=== PATIENT | female | born 1995 | race Asian ===

== ENCOUNTER 2021-04-27 17:43 | Inpatient (IN) ==
[2021-04-27] MEDS ORDERED: SODIUM CHLORIDE 0.9% 1000ML 1,000 ML IV ONE ×2 (18:23→19:54)
[2021-04-27] MEDS ORDERED: ACETAMINOPHEN 1,000 MG/100 ML VIAL IV STA (18:23)
--- NOTE | 2021-04-27 19:06 | Emergency Department Note ---
History of Present Illness General Chief complaint: Illness Stated complaint: FAINTED, CAN'T STAND, NAUSEA, MUSCEL CRAMPS Time Seen by Provider: 04/27/21 18:14 Source: patient and other (Significant other whom she lives with) Mode of arrival: ambulatory Limitations: no limitations History of Present Illness Provider complaint: n/v/d, abd pain Onset (ago): day(s) 1 Location: abdomen Radiation: non-radiation Maximum Pain Intensity: 10 Associated symptoms: + loss of appetite, + malaise, + nausea/vomiting, + syncope and + weakness Treatments prior to arrival: none This is a 25-year-old female presents the emergency department with multiple GI complaints. Patient states yesterday she had worsening nausea and vomited multiple times. She then also began having having diarrhea. Denies any blood in the emesis or stool. She states she does have abdominal pain that seems to move and she feels bloated/distended. Patient denies fevers, chills. Significant other bedside states in the midst of the GI events last night she did pass out on 2 occasions. She states she felt her heart was racing before and after these events. He states she is only been able to keep down small sips. They attribute her symptoms to a recent increase in her Prozac. They states she was started on Prozac 20 mg about a month ago and did have nausea while taking that and the Prozac was increased to 40 mg on . They state they have otherwise been eating the same foods and he has not been sick. No known sick contacts. She states her periods are always irregular but she has not had a menstrual cycle in 5 months. She states she has taken several at home test that were all negative. She denies any other new medications. Denies any history of IBS or IBD. No GI history in the family. Pt seen during a time of high acuity and national emergency pandemic while wearing PPE. Home Medications Medication Instructions Recorded Confirmed Type fluoxetine 40 mg capsule (Prozac) 40 mg PO DAILY 04/27/21 04/27/21 History Allergies Allergy/AdvReac Type Severity Reaction Status Date / Time No Known Allergies Allergy Unverified 04/27/21 18:49 Past Med/Surg History Social History Smoking Status: Never smoker Feels Safe at Home: Yes Review of Systems A total of 10 systems reviewed and were otherwise negative All systems reviewed & are unremarkable except as noted in HPI & below Physical Exam Vital Signs Vital Signs - 24 hr 04/27/21 17:50 04/27/21 20:03 04/27/21 23:19 Temperature 36.8 C 37.3 C Temperature Source Temporal Artery Scan Oral Pulse Rate 121 H Pulse Rate [Apical] 95 H 88 Pulse Rhythm Regular Respiratory Rate 18 20 19 Respiratory Effort / Characteristics Non-Labored Spontaneous Respiratory Depth Normal Respiratory Pattern Regular Blood Pressure 102/71 Blood Pressure [Right Arm] 118/73 119/66 Blood Pressure Mean 81 Blood Pressure Mean [Right Arm] 88 83 Blood Pressure Position [Right Arm] Sitting Pulse Oximetry 98 99 98 Oxygen Delivery Method Room Air Room Air Room Air Sepsis Recent Fever Within 48 Hours No Sepsis New/Unexplained Change in Mental Status No Sepsis Action Taken by Nursing No Action Required 04/28/21 01:08 Temperature Temperature Source Pulse Rate Pulse Rate [Apical] 91 H Pulse Rhythm Respiratory Rate 19 Respiratory Effort / Characteristics Non-Labored Spontaneous Respiratory Depth Normal Respiratory Pattern Regular Blood Pressure Blood Pressure [Right Arm] 118/63 Blood Pressure Mean Blood Pressure Mean [Right Arm] 81 Blood Pressure Position [Right Arm] Pulse Oximetry 98 Oxygen Delivery Method Room Air Sepsis Recent Fever Within 48 Hours Sepsis New/Unexplained Change in Mental Status Sepsis Action Taken by Nursing GENERAL: alert, unwell appearing, well nourished, no distress, non-toxic EYE EXAM: normal conjunctiva, PERRL and EOM's grossly intact OROPHARYNX: no exudate, no erythema, lips, buccal mucosa, and tongue normal and mucous membranes are dry NECK: supple, no nuchal rigidity, no adenopathy, non-tender LUNGS: Clear to auscultation. Normal chest wall mechanics, no w/r/r HEART: no murmurs, S1 normal and S2 normal ABDOMEN: abdomen soft, generalized abdominal tenderness with palpation, normo- active bowel sounds, no masses, no rebound or guarding. BACK: Back is symmetrical on inspection and there is no deformity, no midline tenderness, no CVA tenderness. SKIN: no rashes and no bruising UPPER EXTREMITIES: upper extremities are grossly normal. FROM, nml pulses b/l. LOWER EXTREMITIES: No pitting edema. FROM, nml pulses b/l. NEURO EXAM: Normal sensorium, cranial nerves II-XII grossly intact, normal speech, no gross weakness of arms, no gross weakness of legs. Gross sensation intact. Course Course 1944: Pt states still having pain. Nausea improving. Patient denies any prior history of anemia. Denies history of heavy periods. 2024: I attempted to US the pt to evaluate for an IUP at bedside. Patient stated it was too painful and couldn't tolerate being laid flat or even semi recumbent. 2225: Called by US tech due to concern for possible ectopic. Type and screen, coags, and Covid swab added. 2249: I updated pt. VS stable. 2323: Discussed with Dr. Caruso. He will be in to evaluate. Administered Medications Discontinued Medications Bupivacaine HCl (Bupivacaine 0.5 % 5 Mg/1 Ml Mpf 30ml Vial) Confirm Administered Dose 30 ml .ROUTE .STK-MED ONE Stop: 04/28/21 01:46 Last Admin: 04/28/21 03:02 Dose: 23 ml Documented by: [id number] Sodium Chloride (Nss 1000ml) 1,000 mls @ 999 mls/hr IV .Q1H1M ONE Stop: 04/27/21 19:23 Last Infusion: 04/27/21 20:39 Dose: 0 mls/hr Documented by: [id number] Admin: 04/27/21 19:30 Dose: 999 mls/hr Documented by: [id number] Acetaminophen (Ofirmev) 1,000 mg in 100 mls @ 400 mls/hr IV NOW STA Stop: 04/27/21 18:37 Last Infusion: 04/27/21 19:46 Dose: 0 mls/hr Documented by: [id number] Admin: 04/27/21 19:31 Dose: 400 mls/hr Documented by: [id number] Sodium Chloride (Nss 1000ml) 1,000 mls @ 999 mls/hr IV .Q1H1M ONE Stop: 04/27/21 20:54 Last Infusion: 04/27/21 23:44 Dose: 0 mls/hr Documented by: [id number] Admin: 04/27/21 20:13 Dose: 999 mls/hr Documented by: [id number] Miscellaneous ( Floseal Hemostatic Matrix 5ml) 5 ml TOP ONCE ONE Stop: 04/28/21 02:59 Last Admin: 04/28/21 03:02 Dose: 5 ml Documented by: [id number] Morphine Sulfate (Morphine Sulfate 2 Mg/Ml Carp) 2 mg IV NOW STA Stop: 04/27/21 21:00 Last Admin: 04/27/21 21:12 Dose: 2 mg Documented by: [id number] Morphine Sulfate (Morphine Sulfate 2 Mg/Ml Carp) 2 mg IV NOW STA Stop: 04/27/21 21:32 Last Admin: 04/27/21 22:01 Dose: 2 mg Documented by: [id number] Morphine Sulfate (Morphine Sulfate 2 Mg/Ml Carp) 2 mg IV NOW STA Stop: 04/27/21 23:40 Last Admin: 04/27/21 23:44 Dose: 2 mg Documented by: [id number] Medical Decision Making Differential Diagnosis Differential: Gastroenteritis, Food Borne, Esophageal Perforation, , Electrolyte Abnormality, Dehydration, Intraabdominal Infection, UTI/Pyelonephritis, Bowel Obstruction, Biliary Pathology, amongst other pathology entertained. Medical Records Attestation: I reviewed the patient's medical records. Home Medications Current Medication List: was personally reviewed by me Laboratory Data Attestation: I reviewed the patient's lab results. Result diagrams: 04/27/21 Unknown 04/27/21 Unknown Lab Results 04/27/21 04/27/21 04/27/21 Range/Units 23:00 23:00 23:08 WBC (4.8-10.8) K/uL RBC (4.2-5.4) M/uL Hgb (12.0-16.0) g/dL Hct (37-47) % MCV (80-100) fL MCH (25-34) pg MCHC (32-36) g/dL RDW Std Deviation (36.4-46.3) fL RDW Coeff of Jorden (11.5-14.5) % Plt Count (130-400) K/uL MPV (7.4-10.4) fL Immature Gran % (Auto) % Neut % (Auto) % Lymph % (Auto) % Brewster % (Auto) % Eos % (Auto) % Baso % (Auto) % Neut # (Auto) (1.4-6.5) K/uL Lymph # (Auto) (1.2-3.4) K/uL Brewster # (Auto) (0.11-0.59) K/uL Eos # (Auto) (0-0.5) K/uL Baso # (Auto) (0-0.2) K/uL Immature Gran # (Auto) (0.00-0.02) K/uL PT (9.0-12.0) Seconds INR (0.9-1.1) Sodium (136-145) mmol/L Potassium (3.5-5.1) mmol/L Chloride (98-107) mmol/L Carbon Dioxide (21-32) mmol/L Anion Gap (3-11) BUN (7-18) mg/dl Creatinine (0.6-1.2) mg/dl Est Cr Clr Drug Dosing ml/min Est GFR ( Amer) ml/min Est GFR (Non-Af Amer) ml/min BUN/Creatinine Ratio (10-20) Glucose (70-99) mg/dl Calcium (8.5-10.1) mg/dl Magnesium (1.8-2.4) mg/dl Total Bilirubin (0.2-1) mg/dl AST (15-37) U/L ALT (12-78) U/L Alkaline Phosphatase (45-117) U/L Total Protein (6.4-8.2) gm/dl Albumin (3.4-5.0) gm/dl Globulin (2.5-4.0) gm/dl Albumin/Globulin Ratio (0.9-2) Lipase (73-393) U/L TSH (0.300-4.500) uIu/ml HCG, Qual (Negative) HCG, Quant mIU/ml Lyme Disease IgG Ab (Negative) Lyme Disease IgM Ab (Negative) COVID-19 Eval Order Covid19 at [facility] SARS-CoV-2 (PCR) NEGATIVE (Negative) Blood Type O Positive Antibody Screen NEGATIVE 04/27/21 04/27/21 04/27/21 Range/Units 23:08 Unknown Unknown WBC 17.77 H (4.8-10.8) K/uL RBC 3.30 L (4.2-5.4) M/uL Hgb 10.1 L (12.0-16.0) g/dL Hct 28.5 L (37-47) % MCV 86.4 (80-100) fL MCH 30.6 (25-34) pg MCHC 35.4 (32-36) g/dL RDW Std Deviation 40.6 (36.4-46.3) fL RDW Coeff of Jorden 12.8 (11.5-14.5) % Plt Count 219 (130-400) K/uL MPV 9.5 (7.4-10.4) fL Immature Gran % (Auto) 0.4 % Neut % (Auto) 88.2 % Lymph % (Auto) 6.6 % Brewster % (Auto) 4.7 % Eos % (Auto) 0.0 % Baso % (Auto) 0.1 % Neut # (Auto) 15.69 H (1.4-6.5) K/uL Lymph # (Auto) 1.17 L (1.2-3.4) K/uL Brewster # (Auto) 0.83 H (0.11-0.59) K/uL Eos # (Auto) 0.00 (0-0.5) K/uL Baso # (Auto) 0.01 (0-0.2) K/uL Immature Gran # (Auto) 0.07 H (0.00-0.02) K/uL PT 11.3 (9.0-12.0) Seconds INR 1.1 (0.9-1.1) Sodium 134 L (136-145) mmol/L Potassium 3.6 (3.5-5.1) mmol/L Chloride 99 (98-107) mmol/L Carbon Dioxide 22 (21-32) mmol/L Anion Gap 13.0 H (3-11) BUN 13 (7-18) mg/dl Creatinine 0.61 (0.6-1.2) mg/dl Est Cr Clr Drug Dosing 125.8 ml/min Est GFR ( Amer) 146.0 ml/min Est GFR (Non-Af Amer) 126.0 ml/min BUN/Creatinine Ratio 21.6 H (10-20) Glucose 110 H (70-99) mg/dl Calcium 8.1 L (8.5-10.1) mg/dl Magnesium 1.8 (1.8-2.4) mg/dl Total Bilirubin 0.8 (0.2-1) mg/dl AST 15 (15-37) U/L ALT 16 (12-78) U/L Alkaline Phosphatase 52 (45-117) U/L Total Protein 6.6 (6.4-8.2) gm/dl Albumin 3.6 (3.4-5.0) gm/dl Globulin 3.0 (2.5-4.0) gm/dl Albumin/Globulin Ratio 1.2 (0.9-2) Lipase 66 L (73-393) U/L TSH 1.060 (0.300-4.500) uIu/ml HCG, Qual (Negative) HCG, Quant mIU/ml Lyme Disease IgG Ab (Negative) Lyme Disease IgM Ab (Negative) COVID-19 Eval Order SARS-CoV-2 (PCR) (Negative) Blood Type Antibody Screen 04/27/21 04/27/21 Range/Units Unknown Unknown WBC (4.8-10.8) K/uL RBC (4.2-5.4) M/uL Hgb (12.0-16.0) g/dL Hct (37-47) % MCV (80-100) fL MCH (25-34) pg MCHC (32-36) g/dL RDW Std Deviation (36.4-46.3) fL RDW Coeff of Jorden (11.5-14.5) % Plt Count (130-400) K/uL MPV (7.4-10.4) fL Immature Gran % (Auto) % Neut % (Auto) % Lymph % (Auto) % Brewster % (Auto) % Eos % (Auto) % Baso % (Auto) % Neut # (Auto) (1.4-6.5) K/uL Lymph # (Auto) (1.2-3.4) K/uL Brewster # (Auto) (0.11-0.59) K/uL Eos # (Auto) (0-0.5) K/uL Baso # (Auto) (0-0.2) K/uL Immature Gran # (Auto) (0.00-0.02) K/uL PT (9.0-12.0) Seconds INR (0.9-1.1) Sodium (136-145) mmol/L Potassium (3.5-5.1) mmol/L Chloride (98-107) mmol/L Carbon Dioxide (21-32) mmol/L Anion Gap (3-11) BUN (7-18) mg/dl Creatinine (0.6-1.2) mg/dl Est Cr Clr Drug Dosing ml/min Est GFR ( Amer) ml/min Est GFR (Non-Af Amer) ml/min BUN/Creatinine Ratio (10-20) Glucose (70-99) mg/dl Calcium (8.5-10.1) mg/dl Magnesium (1.8-2.4) mg/dl Total Bilirubin (0.2-1) mg/dl AST (15-37) U/L ALT (12-78) U/L Alkaline Phosphatase (45-117) U/L Total Protein (6.4-8.2) gm/dl Albumin (3.4-5.0) gm/dl Globulin (2.5-4.0) gm/dl Albumin/Globulin Ratio (0.9-2) Lipase (73-393) U/L TSH (0.300-4.500) uIu/ml HCG, Qual Positive (Negative) HCG, Quant 08636 mIU/ml Lyme Disease IgG Ab Negative (Negative) Lyme Disease IgM Ab Negative (Negative) COVID-19 Eval Order SARS-CoV-2 (PCR) (Negative) Blood Type Antibody Screen Imaging Data Radiologist's Impression: Ultrasound OB first trimester: No intrauterine identified. There is a small amount of complex fluid likely representing hemoperitoneum within the pelvis and extending into the right upper quadrant. Complex cystic lesion attached to the right ovary with a thick wall and surrounding hypervascularity. This looks like a corpus luteal cyst however an ectopic could have an identical appearance. No yolk sac or pole visualized within the structure. With a beta hCG of 21,000 and no intrauterine there is likely an ectopic and given the hemoperitoneum findings suggestive of a ruptured ectopic. Recommend CATERING STAFF MEMBER consultation. Left ovary is poorly visualized but unremarkable. Radiologist: Jorge Weiss MD MDM Narrative This is a 25-year-old female presents emergency department with concern for GI symptoms and accompanying syncopal event. Patient states she has been sick for several days and attributes it to recent increase in her Prozac. Significant other whom she lives with his bedside has not been ill, they deny any other recent dietary changes or known sick contacts. Patient ill-appearing at bedside. Labs and IV fluids ordered in addition to pain and nausea medication. Patient with generalized abdominal discomfort. Given patient's recent admission for not having menstrual cycle in 5 months, and hCG was also added with the labs. Patient's hCG was positive and a hCG quantitative was added. I did attempt to perform a bedside ultrasound to evaluate for an IUP at bedside and patient stated she could not tolerate the pain and could not lay flat for an ultrasound. Additional pain medication was added and patient sent for formal ultrasound. Patient ultimately found to have a ruptured ectopic with hemoperitoneum. Patient is a . No local CATERING STAFF MEMBER. Case discussed with on- call CATERING STAFF MEMBER Dr. Caruso who came in and evaluated the patient and preparations were made to take her to the operating room. Patient did remain hemodynamically stable throughout. She was initially given 2 L of IV fluids as she appeared dehydrated and had significant GI losses over the last 2 days. An order was placed for continuous cardiac monitoring. The monitor shows a rate of _105__ with __sinus tachycardia_ rhythm. Impression & Plan Abdominal pain, Ruptured right tubal ectopic causing hemoperitoneum, Dehydration, Nausea vomiting and diarrhea, Syncope Discharge Plan Visit Data Chief Complaint: Illness Stated Complaint: FAINTED, CAN'T STAND, NAUSEA, MUSCEL CRAMPS Discharge Problem: Abdominal pain, Ruptured right tubal ectopic causing hemoperitoneum, Dehydration, Nausea vomiting and diarrhea, Syncope Patient Disposition: Still a Patient Condition: Good Discharge Instructions Interventions: ED Discharge Assessment Last Done: 04/28/21 01:09
[2021-04-27 19:41] LABS: Basophils # (auto) 0.01 K/uL (0-0.2); Basophils % (auto) 0.1 %; Hematocrit (blood only) 28.5 % (37-47); Hemoglobin 10.1 g/dL (12.0-16.0); Immature Granulocytes # (auto) 0.07 K/uL (0.00-0.02); Immature Granulocytes % (auto) 0.4 %; Lymphocytes # (auto) 1.17 K/uL (1.2-3.4); Lymphocytes % (auto) 6.6 %; Mean Corpuscular Hemoglobin 30.6 pg (25-34); Mean Corpuscular Hgb Conc 35.4 g/dL (32-36); Mean Corpuscular Volume 86.4 fL (80-100); Mean Platelet Volume 9.5 fL (7.4-10.4); Monocytes # (auto) 0.83 K/uL (0.11-0.59); Monocytes % (auto) 4.7 %; Neutrophils # (auto) 15.69 K/uL (1.4-6.5); Neutrophils % (auto) 88.2 %; Platelet Count 219 K/uL (130-400); RDW Coefficient of Variation 12.8 % (11.5-14.5); RDW Standard Deviation 40.6 fL (36.4-46.3); White Blood Count 17.77 K/uL (4.8-10.8)
[2021-04-27 19:56] LABS: Albumin Level 3.6 gm/dl (3.4-5.0); BUN Creatinine Ratio 21.6 (10-20); Calcium 8.1 mg/dl (8.5-10.1); Creatinine Clr Calc Pharmacy 125.8 ml/min; Magnesium 1.8 mg/dl (1.8-2.4); Potassium 3.6 mmol/L (3.5-5.1)
[2021-04-27 19:58] LABS: Pregnancy Test, Serum Positive (Negative)
[2021-04-27 20:07] LABS: Albumin Globulin Ratio 1.2 (0.9-2); Bilirubin,Total 0.8 mg/dl (0.2-1); Thyroid Stimulating Hormone 1.06 uIu/ml (0.300-4.500); Total Protein 6.6 gm/dl (6.4-8.2)
[2021-04-27 20:24] LABS: Lyme Ab IgG w/WB Rflx Negative (Negative); Lyme Ab IgM w/WB Rflx Negative (Negative)
[2021-04-27] MEDS ORDERED: MoRPHine SULFATE 2 MG/ML CARP IV STA ×3 (20:59→23:39)
[2021-04-27 23:33] LABS: INR 1.1 (0.9-1.1); Prothrombin Time 11.3 Seconds (9.0-12.0)
--- NOTE | 2021-04-28 00:26 | History & Physical Report ---
Date of Service April 28, 2021 Assessment & Plan (1) Ruptured right tubal ectopic causing hemoperitoneum: Plan: patient to go to OR for Operative laparoscopy, removal of ectopic History of Present Illness Primary Care Provider: Rickie Villaseñor MD 25 F P0000 presents to the ER with one day history of abdominal and epigastric pain starting last night with nausea and vomitting and dizziness. She has not had regular cycles nad not using any control. No history of any medical or surgical problems. pelvic ultrasound today reveals probable right ruptured ectopic with hemoperitoneum. Allergies Allergy/AdvReac Type Severity Reaction Status Date / Time No Known Allergies Allergy Unverified 04/27/21 18:49 Home Medications Medication Instructions Recorded Confirmed Type fluoxetine 40 mg capsule (Prozac) 40 mg PO DAILY 04/27/21 04/27/21 History Patient History Social History Smoking Status: Never smoker Feels Safe at Home: Yes OB History primigravida Review of Systems All systems reviewed & are unremarkable except as noted in HPI & below Physical Exam Constitutional: WD/WN, vitals as above + acute distress Eyes: PERRL, conjunctivae normal, anicteric sclerae Respiratory: normal respiratory effort, lungs clear to auscultation Cardiovascular: Rate/Rhythm: regular rate and regular rhythm Gastrointestinal (Abdomen): Inspection/Auscultation: abdomen normal to inspection some guarding in RLQ. no rebound Skin: no rashes, warm and dry Neurologic: patellar DTR's 2+ bilat, sensation intact Psychiatric: A+Ox3, euthymic affect Results & Data ([facility]) Vital Signs (Past 12 Hours) Vital Signs Temp Pulse Pulse Resp BP BP Pulse Ox 04/27/21 23:19 37.3 C 88 19 119/66 98 04/27/21 20:03 95 H 20 118/73 99 04/27/21 17:50 36.8 C 121 H 18 102/71 98 Laboratory Results 04/27/21 04/27/21 04/27/21 23:00 23:00 23:08 WBC RBC Hgb Hct MCV MCH MCHC RDW Std Deviation RDW Coeff of Jorden Plt Count MPV Immature Gran % (Auto) Neut % (Auto) Lymph % (Auto) Randall % (Auto) Eos % (Auto) Baso % (Auto) Neut # (Auto) Lymph # (Auto) Randall # (Auto) Eos # (Auto) Baso # (Auto) Immature Gran # (Auto) PT INR Sodium Potassium Chloride Carbon Dioxide Anion Gap BUN Creatinine Est Cr Clr Drug Dosing Est GFR ( Amer) Est GFR (Non-Af Amer) BUN/Creatinine Ratio Glucose Calcium Magnesium Total Bilirubin AST ALT Alkaline Phosphatase Total Protein Albumin Globulin Albumin/Globulin Ratio Lipase TSH HCG, Qual HCG, Quant Lyme Disease IgG Ab Lyme Disease IgM Ab COVID-19 Eval Order Covid19 at [facility] SARS-CoV-2 (PCR) NEGATIVE Blood Type O Positive Antibody Screen NEGATIVE 04/27/21 04/27/21 04/27/21 23:08 Unknown Unknown WBC 17.77 H RBC 3.30 L Hgb 10.1 L Hct 28.5 L MCV 86.4 MCH 30.6 MCHC 35.4 RDW Std Deviation 40.6 RDW Coeff of Jorden 12.8 Plt Count 219 MPV 9.5 Immature Gran % (Auto) 0.4 Neut % (Auto) 88.2 Lymph % (Auto) 6.6 Randall % (Auto) 4.7 Eos % (Auto) 0.0 Baso % (Auto) 0.1 Neut # (Auto) 15.69 H Lymph # (Auto) 1.17 L Randall # (Auto) 0.83 H Eos # (Auto) 0.00 Baso # (Auto) 0.01 Immature Gran # (Auto) 0.07 H PT 11.3 INR 1.1 Sodium 134 L Potassium 3.6 Chloride 99 Carbon Dioxide 22 Anion Gap 13.0 H BUN 13 Creatinine 0.61 Est Cr Clr Drug Dosing 125.8 Est GFR ( Amer) 146.0 Est GFR (Non-Af Amer) 126.0 BUN/Creatinine Ratio 21.6 H Glucose 110 H Calcium 8.1 L Magnesium 1.8 Total Bilirubin 0.8 AST 15 ALT 16 Alkaline Phosphatase 52 Total Protein 6.6 Albumin 3.6 Globulin 3.0 Albumin/Globulin Ratio 1.2 Lipase 66 L TSH 1.060 HCG, Qual HCG, Quant Lyme Disease IgG Ab Lyme Disease IgM Ab COVID-19 Eval Order SARS-CoV-2 (PCR) Blood Type Antibody Screen 04/27/21 04/27/21 Unknown Unknown WBC RBC Hgb Hct MCV MCH MCHC RDW Std Deviation RDW Coeff of Jorden Plt Count MPV Immature Gran % (Auto) Neut % (Auto) Lymph % (Auto) Randall % (Auto) Eos % (Auto) Baso % (Auto) Neut # (Auto) Lymph # (Auto) Randall # (Auto) Eos # (Auto) Baso # (Auto) Immature Gran # (Auto) PT INR Sodium Potassium Chloride Carbon Dioxide Anion Gap BUN Creatinine Est Cr Clr Drug Dosing Est GFR ( Amer) Est GFR (Non-Af Amer) BUN/Creatinine Ratio Glucose Calcium Magnesium Total Bilirubin AST ALT Alkaline Phosphatase Total Protein Albumin Globulin Albumin/Globulin Ratio Lipase TSH HCG, Qual Positive HCG, Quant [id number] Lyme Disease IgG Ab Negative Lyme Disease IgM Ab Negative COVID-19 Eval Order SARS-CoV-2 (PCR) Blood Type Antibody Screen
[2021-04-28] MEDS ORDERED: ONDANSETRON INJ 2 MG/ML 2 ML VIAL IV PRN ×2 (00:27→01:19)
[2021-04-28] MEDS ORDERED: ATROPINE SULFATE 0.1 MG/ML 10ML SYR IV PRN (01:19)
[2021-04-28] MEDS ORDERED: ePHEDrine sulfate 50 MG/ML AMP IV PRN (01:19)
[2021-04-28] MEDS ORDERED: HYDROmorphone INJ 2 MG/ML SYR/VIAL IV PRN (01:19)
[2021-04-28] MEDS ORDERED: fentaNYL citrate 100 MCG/2 ML VIAL IV PRN (01:19)
[2021-04-28] MEDS ORDERED: PROMETHAZINE HCL 6.25 MG in SODIUM CHLORIDE 0.9% 50 ML IV PRN (01:19)
--- NOTE | 2021-04-28 01:32 | Anesthesiology Consultation ---
Date of Service April 28, 2021 Assessment & Plan (1) Encounter for pre-operative examination: Chart Review Chart Review: Acceptable Risk for Surgery and Patient NOT seen in Pre Admission Testing Consults Requested none ASA [id number] Proposed Anesthesia Anesthesia Type: General Risk / Benefits Reviewed With: PT / POA / Parent / Guardian, Accepts Plan and Informed Consent Obtained History Surgery Operation Date: 04/28/21 01:30 Proposed Procedures p Laparoscopic Ectopic - Rodger Caruso MD Height/Weight Height: 5 ft 2 in Weight: 66.2 kg Allergies Allergy/AdvReac Type Severity Reaction Status Date / Time No Known Allergies Allergy Unverified 04/27/21 18:49 Medications Home Medications Medication Instructions Recorded Confirmed Last Taken fluoxetine 40 mg capsule (Prozac) 40 mg PO DAILY 04/27/21 04/27/21 04/27/21 NPO Date Last Intake of Fluids: 04/27/21 Time Last Intake of Fluids: 23:00 Date Last Intake of Solids: 04/27/21 Time Last Intake of Solids: 23:00 Exercise / Class Metabolic Activity II 4-5 Yardwork/Stairs/Walk up hill Past Anesthesia History No Hx of Anesthesia Complications and No Family Hx of Anesthesia Complications History of PONV No Hx of PONV and No Hx of Motion Sickness Social History Smoking Status: Never smoker Physical Exam Vital Signs Last Vital Signs Temp 37.3 C 04/27/21 23:19 Pulse 91 H 04/28/21 01:08 Resp 19 04/28/21 01:08 BP 118/63 04/28/21 01:08 Pulse Ox 98 04/28/21 01:08 ENMT Mouth: no dentition abnormality Thyromental Distance: > or= 3.5 Finger Breadths Mallampati Class: II Neck normal visual inspection Respiratory normal respiratory effort Auscultation: lungs clear to auscultation bilaterally Cardiovascular Rate/Rhythm: regular rate and regular rhythm Psychiatric Orientation: alert Testing Laboratory Results 04/27/21 Unknown 04/27/21 Unknown PT 11.3 Seconds (9.0-12.0) 04/27/21 23:08 INR 1.1 (0.9-1.1) 04/27/21 23:08 HCG, Quant 26401 mIU/ml 04/27/21 Unknown Blood Type O Positive 04/27/21 23:08 Antibody Screen NEGATIVE 04/27/21 23:08 04/27/21 Unknown HCG, Quant 05333
[2021-04-28] MEDS ORDERED: BUPIVACAINE 0.5 % 5 MG/1 ML MPF 30ML VIAL ONE (01:45)
[2021-04-28] MEDS ORDERED: fentaNYL citrate 100 MCG/2 ML VIAL ONE (01:50)
[2021-04-28] MEDS ORDERED: FLOSEAL HEMOSTATIC MATRIX 5ML TOP ONE (02:58)
[2021-04-28] MEDS ORDERED: KETOROLAC 30 MG/ML VIAL ONE (03:07)
[2021-04-28] MEDS ORDERED: ONDANSETRON INJ 2 MG/ML 2 ML VIAL ONE (03:07)
[2021-04-28] MEDS ORDERED: PROPOFOL IV EMULSION 10 MG/ML 20 ML VIAL IV ONE (03:07)
[2021-04-28] MEDS ORDERED: DEXAMETHASONE SOD INJ 4 MG/ML VIAL ONE (03:07)
[2021-04-28] MEDS ORDERED: LIDOCAINE 2% 2 ML VIAL/AMP(20MG/ML) INFIL ONE (03:07)
--- NOTE | 2021-04-28 03:16 | Post Operative Brief Note ---
Immediate Post Op Note v1 Date of Surgery April 28, 2021 Pre & Post Diagnosis Operation Date: 04/28/21 01:30 Pre-Op Diagnosis: Ruptured right Ectopic Post-Op Diagnosis: Ruptured right Ectopic hemoperitoneum I identified the patient and participated in the time-out.: Yes Procedure Operation Date: 04/28/21 01:30 Actual Procedures p Operative Laparoscopy, Right Partial Salpingectomy, Removal of Ectopic (Right) - Rodger Caruso MD evacuation of hemoperitoneum Surgeon Rodger Caruso MD Metal Machine Setter Juan C ROSADO Estimated Blood Loss 750 Findings Consistent with Post-Op Diagnosis Fluids LR 600 ml Specimens ectopic Drains Soni Catheter Anesthesia Type General Complications none Disposition Accompanied Patient To Recovery: Yes Overlapping Procedure I was present for: the critical portions of procedure. I was immediately available: during the entire case. Back up surgeon: was not required during procedure.
[2021-04-28] MEDS ORDERED: oxyCODONE HCL IR 5 MG TAB (IMMEDIATE RELEASE) PO PRN (03:35)
[2021-04-28] MEDS ORDERED: KETOROLAC 30 MG/ML VIAL IV PRN (03:35)
[2021-04-28] MEDS ORDERED: MoRPHine SULFATE 2 MG/ML CARP IV PRN (03:35)
[2021-04-28] MEDS ORDERED: MoRPHine SULFATE 4 MG/ML 1 ML CARP\\VIAL IV PRN (03:35)
[2021-04-28] MEDS ORDERED: LACTATED RINGER'S 1,000 ML IV SCH (03:35)
--- NOTE | 2021-04-28 03:49 | Anesthesiology Progress Note ---
Date of Service April 28, 2021 Anesthesia Post Procedure Vital Signs Vital Signs: Temp Pulse Pulse Resp BP BP Pulse Ox 04/28/21 03:35 122 H 16 105/65 100 04/28/21 03:25 36.2 C L 116 H 16 101/46 L 100 04/28/21 01:08 91 H 19 118/63 98 04/27/21 23:19 37.3 C 88 19 119/66 98 04/27/21 20:03 95 H 20 118/73 99 04/27/21 17:50 36.8 C 121 H 18 102/71 98 Transfer of Care Handoff Completed per policy Notes Mental Status: alert / awake / arousable Patient Amnestic to Procedure: Yes Nausea / Vomiting: adequately controlled Pain: adequately controlled Airway Patency, RR, SpO2: stable & adequate BP & HR: stable & adequate Hydration State: stable & adequate Anesthetic Complications: no major complications apparent
[2021-04-28] MEDS: LACTATED RINGER'S 1,000 ML IV SCH ×2 (05:01→09:16)
[2021-04-28 06:24] LABS: Hematocrit (blood only) 22.8 % (37-47); Hemoglobin 7.8 g/dL (12.0-16.0); Mean Corpuscular Hemoglobin 30.5 pg (25-34); Mean Corpuscular Hgb Conc 34.2 g/dL (32-36); Mean Corpuscular Volume 89.1 fL (80-100); Mean Platelet Volume 9.2 fL (7.4-10.4); Platelet Count 159 K/uL (130-400); RDW Coefficient of Variation 12.8 % (11.5-14.5); RDW Standard Deviation 41.5 fL (36.4-46.3); Red Blood Count 2.56 M/uL (4.2-5.4); White Blood Count 11.76 K/uL (4.8-10.8)
--- NOTE | 2021-04-28 06:29 | Operative Report (OR) ---
PREOPERATIVE DIAGNOSIS: Ruptured right ectopic . POSTOPERATIVE DIAGNOSIS: Ruptured right ectopic plus hemoperitoneum. SURGEON: Rodger Caruso MD DESIGN DRAFTSMAN: ALONZO Irizarry. ESTIMATED BLOOD LOSS: 750 mL. TOTAL FLUIDS: 600 mL. URINE OUTPUT: 150 mL. CLINICAL HISTORY: The patient is a 25-year-old 1, para 0, who presents to the ER with dizziness and lightheadedness and fainting. test was positive. Ultrasound revealed possible right ruptured ectopic . The patient was then taken to the operating room for definitive surgery. A timeout was called prior to the start of the procedure. DESCRIPTION OF PROCEDURE: Under satisfactory general anesthesia, the patient was prepped and draped in the usual sterile fashion. Soni catheter was then entered draining clear urine. Next, a weighted speculum was placed in the posterior vault of the cervix. A long Allis clamp was placed on the anterior lip of the cervix and a Farley endocervical cannula was placed for uterine manipulation. Attention was then directed abdominally where an infraumbilical 0.5% Marcaine 10 mL was infiltrated along with 10 mL suprapubically. Incision was made infraumbilically with a #11 knife blade and then the Veress needle was entered and approximately 3 liters of carbon dioxide gas was then allowed to infiltrate and to create an artificial pneumoperitoneum. Veress needle was withdrawn. The incision was widened and the trocar was then inserted. A 5 mm scope was then inserted. There was evidence of ruptured ectopic with hemoperitoneum with copious amounts of blood in the abdomen. Next, a second 5 mm trocar was inserted in the midline and then using the [place] civil design technician, copious amounts of blood were evacuated. Following this, the patient was placed in Trendelenburg position. A third port on the left was placed in the lower abdomen and a #10 port was inserted under dirrect visualization. Grasper was then inserted and then a right tube was visualized with an ampullary ruptured ectopic and following this, the tube was then cauterized in several locations using the Harmonic scalpel. The contents of the ectopic were cauterized and some of this was then removed with a grasper. The proximal end towards the uterus was cauterized with the Harmonic scalpel and the distal end was cauterized as well. Fimbria remained along with the distal end of the tube. The contents of the pelvic cavity were then irrigated to clear. The surgical site was noted to be dry and 5 mL of FloSeal was placed on the surgical wound. No active bleeding was noted. All remaining clots were then evacuated using the civil design technician and all remaining instruments and ports were then removed. The 3 incisions were closed with 4-0 Monocryl and Steri-Strips and 2 x 2 dressings. Contents of the Soni was removed, 150 mL. EBL 750 mL. The remaining instruments were removed from the vagina. The final sponge, needle and instrument counts were found to be correct. The patient's blood type was O positive. The patient was then placed supine on a stretcher and she was moved to Recovery Room in a stable condition. Job ID: [id number] [facility]
--- NOTE | 2021-04-28 08:02 | Ultrasound Report ---
US OB <= 14 weeks fetus CLINICAL HISTORY: abd pain, +preg COMPARISON STUDY: No previous studies for comparison. TECHNIQUE: Transabdominal sonography of the pelvis was performed. FINDINGS: Uterus measures 9.1 x 3.1 x 5.1 cm. Endometrium measures 1.2 cm in thickness. No intrauteri ne gestational sac is identified. Left ovary measures 2.1 x 1.6 x 1.3 cm. The right ovary measures 2. 9 x 2.9 x 3.2 cm. Note is made of a 1.4 x 1.1 x 1.2 cm hypoechoic focus with peripheral echogenicity adjacent to the right ovary. There is moderate complex fluid within the pelvis. There is also complex perihepatic fluid. The findings suggest hemoperitoneum. IMPRESSION: No intrauterine gestational sac. Complex 1.4 cm hypoechoic focus adjacent to the right o vary suggestive of an ectopic . Moderate complex fluid within the pelvis and right upper wayne drant consistent with hemoperitoneum. The findings suggest a right adnexal ruptured ectopic . ACT 112: Negative or not required by law. Electronically signed by: Chuck Wilson M.D. 04/28/2021 8:01 AM
[2021-04-28] MEDS: FERROUS SULFATE 325 MG TAB PO SCH ×2 (09:08→16:58)
--- NOTE | 2021-04-28 09:12 | Obstetrical Progress Note ---
Date of Service April 28, 2021 Assessment & Plan Admission and Anticipated Discharge Date Admission Date: April 28, 2021 Subjective Postop check Patient is seen and examined Feels well, no complaints other than being tired. Pain is under control with meds No CP/ SOB/ Dizziness/ N&V/ VB/ Leg pain OOB to BR and voided now, did well with no dizziness Tolerating clears and ready to eat breakfast. Vital Signs Temp Pulse Pulse Resp BP Pulse Ox 04/28/21 07:58 36.9 C 92 H 16 92/57 L 98 04/28/21 07:19 36.9 C 92 H 16 92/57 L 98 04/28/21 06:05 37.1 C 85 14 99/62 L 97 04/28/21 05:00 36.7 C 96 H 16 108/65 97 04/28/21 04:29 36.7 C 105 H 14 94/62 L 98 04/28/21 04:18 36.9 C 113 H 16 103/69 99 04/28/21 03:50 36.3 C L 117 H 16 100/60 98 04/28/21 03:45 126 H 16 102/64 98 04/28/21 03:35 122 H 16 105/65 100 04/28/21 03:25 36.2 C L 116 H 16 101/46 L 100 04/28/21 01:08 91 H 19 118/63 98 04/27/21 23:19 37.3 C 88 19 119/66 98 Lab Results 04/27/21 04/27/21 04/27/21 Range/Units 23:00 23:00 23:08 WBC (4.8-10.8) K/uL RBC (4.2-5.4) M/uL Hgb (12.0-16.0) g/dL Hct (37-47) % MCV (80-100) fL MCH (25-34) pg MCHC (32-36) g/dL RDW Std Deviation (36.4-46.3) fL RDW Coeff of Jorden (11.5-14.5) % Plt Count (130-400) K/uL MPV (7.4-10.4) fL Immature Gran % (Auto) % Neut % (Auto) % Lymph % (Auto) % [place] % (Auto) % Eos % (Auto) % Baso % (Auto) % Neut # (Auto) (1.4-6.5) K/uL Lymph # (Auto) (1.2-3.4) K/uL [place] # (Auto) (0.11-0.59) K/uL Eos # (Auto) (0-0.5) K/uL Baso # (Auto) (0-0.2) K/uL Immature Gran # (Auto) (0.00-0.02) K/uL PT (9.0-12.0) Seconds INR (0.9-1.1) Sodium (136-145) mmol/L Potassium (3.5-5.1) mmol/L Chloride (98-107) mmol/L Carbon Dioxide (21-32) mmol/L Anion Gap (3-11) BUN (7-18) mg/dl Creatinine (0.6-1.2) mg/dl Est Cr Clr Drug Dosing ml/min Est GFR ( Amer) ml/min Est GFR (Non-Af Amer) ml/min BUN/Creatinine Ratio (10-20) Glucose (70-99) mg/dl Calcium (8.5-10.1) mg/dl Magnesium (1.8-2.4) mg/dl Total Bilirubin (0.2-1) mg/dl AST (15-37) U/L ALT (12-78) U/L Alkaline Phosphatase (45-117) U/L Total Protein (6.4-8.2) gm/dl Albumin (3.4-5.0) gm/dl Globulin (2.5-4.0) gm/dl Albumin/Globulin Ratio (0.9-2) Lipase (73-393) U/L TSH (0.300-4.500) uIu/ml HCG, Qual (Negative) HCG, Quant mIU/ml Lyme Disease IgG Ab (Negative) Lyme Disease IgM Ab (Negative) COVID-19 Eval Order Covid19 at [facility] SARS-CoV-2 (PCR) NEGATIVE (Negative) Blood Type O Positive Antibody Screen NEGATIVE 04/27/21 04/27/21 04/27/21 Range/Units 23:08 Unknown Unknown WBC 17.77 H (4.8-10.8) K/uL RBC 3.30 L (4.2-5.4) M/uL Hgb 10.1 L (12.0-16.0) g/dL Hct 28.5 L (37-47) % MCV 86.4 (80-100) fL MCH 30.6 (25-34) pg MCHC 35.4 (32-36) g/dL RDW Std Deviation 40.6 (36.4-46.3) fL RDW Coeff of Jorden 12.8 (11.5-14.5) % Plt Count 219 (130-400) K/uL MPV 9.5 (7.4-10.4) fL Immature Gran % (Auto) 0.4 % Neut % (Auto) 88.2 % Lymph % (Auto) 6.6 % [place] % (Auto) 4.7 % Eos % (Auto) 0.0 % Baso % (Auto) 0.1 % Neut # (Auto) 15.69 H (1.4-6.5) K/uL Lymph # (Auto) 1.17 L (1.2-3.4) K/uL [place] # (Auto) 0.83 H (0.11-0.59) K/uL Eos # (Auto) 0.00 (0-0.5) K/uL Baso # (Auto) 0.01 (0-0.2) K/uL Immature Gran # (Auto) 0.07 H (0.00-0.02) K/uL PT 11.3 (9.0-12.0) Seconds INR 1.1 (0.9-1.1) Sodium 134 L (136-145) mmol/L Potassium 3.6 (3.5-5.1) mmol/L Chloride 99 (98-107) mmol/L Carbon Dioxide 22 (21-32) mmol/L Anion Gap 13.0 H (3-11) BUN 13 (7-18) mg/dl Creatinine 0.61 (0.6-1.2) mg/dl Est Cr Clr Drug Dosing 125.8 ml/min Est GFR ( Amer) 146.0 ml/min Est GFR (Non-Af Amer) 126.0 ml/min BUN/Creatinine Ratio 21.6 H (10-20) Glucose 110 H (70-99) mg/dl Calcium 8.1 L (8.5-10.1) mg/dl Magnesium 1.8 (1.8-2.4) mg/dl Total Bilirubin 0.8 (0.2-1) mg/dl AST 15 (15-37) U/L ALT 16 (12-78) U/L Alkaline Phosphatase 52 (45-117) U/L Total Protein 6.6 (6.4-8.2) gm/dl Albumin 3.6 (3.4-5.0) gm/dl Globulin 3.0 (2.5-4.0) gm/dl Albumin/Globulin Ratio 1.2 (0.9-2) Lipase 66 L (73-393) U/L TSH 1.060 (0.300-4.500) uIu/ml HCG, Qual (Negative) HCG, Quant mIU/ml Lyme Disease IgG Ab (Negative) Lyme Disease IgM Ab (Negative) COVID-19 Eval Order SARS-CoV-2 (PCR) (Negative) Blood Type Antibody Screen 04/27/21 04/27/21 04/28/21 Range/Units Unknown Unknown 06:15 WBC 11.76 H (4.8-10.8) K/uL RBC 2.56 L (4.2-5.4) M/uL Hgb 7.8 L (12.0-16.0) g/dL Hct 22.8 L (37-47) % MCV 89.1 (80-100) fL MCH 30.5 (25-34) pg MCHC 34.2 (32-36) g/dL RDW Std Deviation 41.5 (36.4-46.3) fL RDW Coeff of Jorden 12.8 (11.5-14.5) % Plt Count 159 (130-400) K/uL MPV 9.2 (7.4-10.4) fL Immature Gran % (Auto) % Neut % (Auto) % Lymph % (Auto) % [place] % (Auto) % Eos % (Auto) % Baso % (Auto) % Neut # (Auto) (1.4-6.5) K/uL Lymph # (Auto) (1.2-3.4) K/uL [place] # (Auto) (0.11-0.59) K/uL Eos # (Auto) (0-0.5) K/uL Baso # (Auto) (0-0.2) K/uL Immature Gran # (Auto) (0.00-0.02) K/uL PT (9.0-12.0) Seconds INR (0.9-1.1) Sodium (136-145) mmol/L Potassium (3.5-5.1) mmol/L Chloride (98-107) mmol/L Carbon Dioxide (21-32) mmol/L Anion Gap (3-11) BUN (7-18) mg/dl Creatinine (0.6-1.2) mg/dl Est Cr Clr Drug Dosing ml/min Est GFR ( Amer) ml/min Est GFR (Non-Af Amer) ml/min BUN/Creatinine Ratio (10-20) Glucose (70-99) mg/dl Calcium (8.5-10.1) mg/dl Magnesium (1.8-2.4) mg/dl Total Bilirubin (0.2-1) mg/dl AST (15-37) U/L ALT (12-78) U/L Alkaline Phosphatase (45-117) U/L Total Protein (6.4-8.2) gm/dl Albumin (3.4-5.0) gm/dl Globulin (2.5-4.0) gm/dl Albumin/Globulin Ratio (0.9-2) Lipase (73-393) U/L TSH (0.300-4.500) uIu/ml HCG, Qual Positive (Negative) HCG, Quant 05142 mIU/ml Lyme Disease IgG Ab Negative (Negative) Lyme Disease IgM Ab Negative (Negative) COVID-19 Eval Order SARS-CoV-2 (PCR) (Negative) Blood Type Antibody Screen PE: General: Alert, orientedx3, NAD CVS: S1S2 RRR Lungs: CTAB Abd: soft, NT, ND, BS+, Incisions C/D/I No VB Ext: NT, no edema, SCD's on AP: 25 yo female s/p Lap. evacuation of blood cloths and salpingectomy for ectopic , pod#0 VSS Afebrile doing well, BP on low side Will continue with IVF nd start diet Continue to routine postop care Repeat H&H at noon Encourage PO intake, may ambulate D/C home afternoon Results & Data ([facility] [place]) Vital Signs (Past 12 Hours) Vital Signs Temp Pulse Pulse Resp BP Pulse Ox 04/28/21 07:58 36.9 C 92 H 16 92/57 L 98 04/28/21 07:19 36.9 C 92 H 16 92/57 L 98 04/28/21 06:05 37.1 C 85 14 99/62 L 97 04/28/21 05:00 36.7 C 96 H 16 108/65 97 04/28/21 04:29 36.7 C 105 H 14 94/62 L 98 04/28/21 04:18 36.9 C 113 H 16 103/69 99 04/28/21 03:50 36.3 C L 117 H 16 100/60 98 04/28/21 03:45 126 H 16 102/64 98 04/28/21 03:35 122 H 16 105/65 100 04/28/21 03:25 36.2 C L 116 H 16 101/46 L 100 04/28/21 01:08 91 H 19 118/63 98 04/27/21 23:19 37.3 C 88 19 119/66 98
[2021-04-28] MEDS: oxyCODONE HCL IR 5 MG TAB (IMMEDIATE RELEASE) PO PRN ×2 (10:24→16:58)
[2021-04-28] MEDS: IBUPROFEN 600 MG TAB PO PRN ×2 (10:24→16:58)
[2021-04-28 12:10] LABS: Basophils # (auto) 0.01 K/uL (0-0.2); Basophils % (auto) 0.1 %; Hematocrit (blood only) 21.3 % (37-47); Hemoglobin 7.3 g/dL (12.0-16.0); Immature Granulocytes # (auto) 0.04 K/uL (0.00-0.02); Immature Granulocytes % (auto) 0.3 %; Lymphocytes # (auto) 0.83 K/uL (1.2-3.4); Lymphocytes % (auto) 6.7 %; Mean Corpuscular Hemoglobin 30.5 pg (25-34); Mean Corpuscular Hgb Conc 34.3 g/dL (32-36); Mean Corpuscular Volume 89.1 fL (80-100); Mean Platelet Volume 9.4 fL (7.4-10.4); Monocytes # (auto) 1.13 K/uL (0.11-0.59); Monocytes % (auto) 9.1 %; Neutrophils % (auto) 83.8 %; Platelet Count 168 K/uL (130-400); RDW Coefficient of Variation 12.9 % (11.5-14.5); RDW Standard Deviation 42.1 fL (36.4-46.3); Red Blood Count 2.39 M/uL (4.2-5.4); White Blood Count 12.41 K/uL (4.8-10.8)
[2021-04-28 12:28] LABS: RBC Morphology Unremarkable
[2021-04-28] MEDS ORDERED: SODIUM CHLORIDE 0.9% 250 ML IV PRN ×2 (13:05→13:19)
[2021-04-28] MEDS ORDERED: diphenhydrAMINE Capsule 25 MG CAP PO ONE (13:06)
[2021-04-28] MEDS: ACETAMINOPHEN 325 MG TAB PO PRN ×2 (13:18→19:34)
--- NOTE | 2021-04-28 14:04 | Obstetrical Progress Note ---
Date of Service April 28, 2021 Assessment & Plan Admission and Anticipated Discharge Date Admission Date: April 28, 2021 Subjective Patient seen and examined. She tried to walk in hallway but got dizzy and came back to her bed. Blood pressures are still low with mild tachycardia. H&H is slightly lower. Postop anemia with symptoms. Recommended blood transfusion. Discussed the risks and benefits and she und erstood all and signed an informed consent. Plan 2 units of packed red blood cell, premedication with Tylenol and Benadryl. All questions were answered. Lab Results 04/27/21 04/27/21 04/27/21 Range/Units 23:00 23:00 23:08 WBC (4.8-10.8) K/uL RBC (4.2-5.4) M/uL Hgb (12.0-16.0) g/dL Hct (37-47) % MCV (80-100) fL MCH (25-34) pg MCHC (32-36) g/dL RDW Std Deviation (36.4-46.3) fL RDW Coeff of Jorden (11.5-14.5) % Plt Count (130-400) K/uL MPV (7.4-10.4) fL Immature Gran % (Auto) % Neut % (Auto) % Lymph % (Auto) % [place] % (Auto) % Eos % (Auto) % Baso % (Auto) % Neut # (Auto) (1.4-6.5) K/uL Lymph # (Auto) (1.2-3.4) K/uL Keith # (Auto) (0.11-0.59) K/uL Eos # (Auto) (0-0.5) K/uL Baso # (Auto) (0-0.2) K/uL Immature Gran # (Auto) (0.00-0.02) K/uL RBC Morphology PT (9.0-12.0) Seconds INR (0.9-1.1) Sodium (136-145) mmol/L Potassium (3.5-5.1) mmol/L Chloride (98-107) mmol/L Carbon Dioxide (21-32) mmol/L Anion Gap (3-11) BUN (7-18) mg/dl Creatinine (0.6-1.2) mg/dl Est Cr Clr Drug Dosing ml/min Est GFR ( Amer) ml/min Est GFR (Non-Af Amer) ml/min BUN/Creatinine Ratio (10-20) Glucose (70-99) mg/dl Calcium (8.5-10.1) mg/dl Magnesium (1.8-2.4) mg/dl Total Bilirubin (0.2-1) mg/dl AST (15-37) U/L ALT (12-78) U/L Alkaline Phosphatase (45-117) U/L Total Protein (6.4-8.2) gm/dl Albumin (3.4-5.0) gm/dl Globulin (2.5-4.0) gm/dl Albumin/Globulin Ratio (0.9-2) Lipase (73-393) U/L TSH (0.300-4.500) uIu/ml HCG, Qual (Negative) HCG, Quant mIU/ml Lyme Disease IgG Ab (Negative) Lyme Disease IgM Ab (Negative) COVID-19 Eval Order Covid19 at [facility] SARS-CoV-2 (PCR) NEGATIVE (Negative) Blood Type O Positive Blood Type Recheck Antibody Screen NEGATIVE Crossmatch See Detail 04/27/21 04/27/21 04/27/21 Range/Units 23:08 Unknown Unknown WBC 17.77 H (4.8-10.8) K/uL RBC 3.30 L (4.2-5.4) M/uL Hgb 10.1 L (12.0-16.0) g/dL Hct 28.5 L (37-47) % MCV 86.4 (80-100) fL MCH 30.6 (25-34) pg MCHC 35.4 (32-36) g/dL RDW Std Deviation 40.6 (36.4-46.3) fL RDW Coeff of Jorden 12.8 (11.5-14.5) % Plt Count 219 (130-400) K/uL MPV 9.5 (7.4-10.4) fL Immature Gran % (Auto) 0.4 % Neut % (Auto) 88.2 % Lymph % (Auto) 6.6 % [place] % (Auto) 4.7 % Eos % (Auto) 0.0 % Baso % (Auto) 0.1 % Neut # (Auto) 15.69 H (1.4-6.5) K/uL Lymph # (Auto) 1.17 L (1.2-3.4) K/uL Keith # (Auto) 0.83 H (0.11-0.59) K/uL Eos # (Auto) 0.00 (0-0.5) K/uL Baso # (Auto) 0.01 (0-0.2) K/uL Immature Gran # (Auto) 0.07 H (0.00-0.02) K/uL RBC Morphology PT 11.3 (9.0-12.0) Seconds INR 1.1 (0.9-1.1) Sodium 134 L (136-145) mmol/L Potassium 3.6 (3.5-5.1) mmol/L Chloride 99 (98-107) mmol/L Carbon Dioxide 22 (21-32) mmol/L Anion Gap 13.0 H (3-11) BUN 13 (7-18) mg/dl Creatinine 0.61 (0.6-1.2) mg/dl Est Cr Clr Drug Dosing 125.8 ml/min Est GFR ( Amer) 146.0 ml/min Est GFR (Non-Af Amer) 126.0 ml/min BUN/Creatinine Ratio 21.6 H (10-20) Glucose 110 H (70-99) mg/dl Calcium 8.1 L (8.5-10.1) mg/dl Magnesium 1.8 (1.8-2.4) mg/dl Total Bilirubin 0.8 (0.2-1) mg/dl AST 15 (15-37) U/L ALT 16 (12-78) U/L Alkaline Phosphatase 52 (45-117) U/L Total Protein 6.6 (6.4-8.2) gm/dl Albumin 3.6 (3.4-5.0) gm/dl Globulin 3.0 (2.5-4.0) gm/dl Albumin/Globulin Ratio 1.2 (0.9-2) Lipase 66 L (73-393) U/L TSH 1.060 (0.300-4.500) uIu/ml HCG, Qual (Negative) HCG, Quant mIU/ml Lyme Disease IgG Ab (Negative) Lyme Disease IgM Ab (Negative) COVID-19 Eval Order SARS-CoV-2 (PCR) (Negative) Blood Type Blood Type Recheck Antibody Screen Crossmatch 04/27/21 04/27/21 04/28/21 Range/Units Unknown Unknown 06:15 WBC 11.76 H (4.8-10.8) K/uL RBC 2.56 L (4.2-5.4) M/uL Hgb 7.8 L (12.0-16.0) g/dL Hct 22.8 L (37-47) % MCV 89.1 (80-100) fL MCH 30.5 (25-34) pg MCHC 34.2 (32-36) g/dL RDW Std Deviation 41.5 (36.4-46.3) fL RDW Coeff of Jorden 12.8 (11.5-14.5) % Plt Count 159 (130-400) K/uL MPV 9.2 (7.4-10.4) fL Immature Gran % (Auto) % Neut % (Auto) % Lymph % (Auto) % [place] % (Auto) % Eos % (Auto) % Baso % (Auto) % Neut # (Auto) (1.4-6.5) K/uL Lymph # (Auto) (1.2-3.4) K/uL [place] # (Auto) (0.11-0.59) K/uL Eos # (Auto) (0-0.5) K/uL Baso # (Auto) (0-0.2) K/uL Immature Gran # (Auto) (0.00-0.02) K/uL RBC Morphology PT (9.0-12.0) Seconds INR (0.9-1.1) Sodium (136-145) mmol/L Potassium (3.5-5.1) mmol/L Chloride (98-107) mmol/L Carbon Dioxide (21-32) mmol/L Anion Gap (3-11) BUN (7-18) mg/dl Creatinine (0.6-1.2) mg/dl Est Cr Clr Drug Dosing ml/min Est GFR ( Amer) ml/min Est GFR (Non-Af Amer) ml/min BUN/Creatinine Ratio (10-20) Glucose (70-99) mg/dl Calcium (8.5-10.1) mg/dl Magnesium (1.8-2.4) mg/dl Total Bilirubin (0.2-1) mg/dl AST (15-37) U/L ALT (12-78) U/L Alkaline Phosphatase (45-117) U/L Total Protein (6.4-8.2) gm/dl Albumin (3.4-5.0) gm/dl Globulin (2.5-4.0) gm/dl Albumin/Globulin Ratio (0.9-2) Lipase (73-393) U/L TSH (0.300-4.500) uIu/ml HCG, Qual Positive (Negative) HCG, Quant 44043 mIU/ml Lyme Disease IgG Ab Negative (Negative) Lyme Disease IgM Ab Negative (Negative) COVID-19 Eval Order SARS-CoV-2 (PCR) (Negative) Blood Type Blood Type Recheck Antibody Screen Crossmatch 04/28/21 04/28/21 Range/Units 06:15 11:51 WBC 12.41 H (4.8-10.8) K/uL RBC 2.39 L (4.2-5.4) M/uL Hgb 7.3 L (12.0-16.0) g/dL Hct 21.3 L (37-47) % MCV 89.1 (80-100) fL MCH 30.5 (25-34) pg MCHC 34.3 (32-36) g/dL RDW Std Deviation 42.1 (36.4-46.3) fL RDW Coeff of Jorden 12.9 (11.5-14.5) % Plt Count 168 (130-400) K/uL MPV 9.4 (7.4-10.4) fL Immature Gran % (Auto) 0.3 % Neut % (Auto) 83.8 % Lymph % (Auto) 6.7 % Keith % (Auto) 9.1 % Eos % (Auto) 0.0 % Baso % (Auto) 0.1 % Neut # (Auto) 10.40 H (1.4-6.5) K/uL Lymph # (Auto) 0.83 L (1.2-3.4) K/uL Keith # (Auto) 1.13 H (0.11-0.59) K/uL Eos # (Auto) 0.00 (0-0.5) K/uL Baso # (Auto) 0.01 (0-0.2) K/uL Immature Gran # (Auto) 0.04 H (0.00-0.02) K/uL RBC Morphology Unremarkable PT (9.0-12.0) Seconds INR (0.9-1.1) Sodium (136-145) mmol/L Potassium (3.5-5.1) mmol/L Chloride (98-107) mmol/L Carbon Dioxide (21-32) mmol/L Anion Gap (3-11) BUN (7-18) mg/dl Creatinine (0.6-1.2) mg/dl Est Cr Clr Drug Dosing ml/min Est GFR ( Amer) ml/min Est GFR (Non-Af Amer) ml/min BUN/Creatinine Ratio (10-20) Glucose (70-99) mg/dl Calcium (8.5-10.1) mg/dl Magnesium (1.8-2.4) mg/dl Total Bilirubin (0.2-1) mg/dl AST (15-37) U/L ALT (12-78) U/L Alkaline Phosphatase (45-117) U/L Total Protein (6.4-8.2) gm/dl Albumin (3.4-5.0) gm/dl Globulin (2.5-4.0) gm/dl Albumin/Globulin Ratio (0.9-2) Lipase (73-393) U/L TSH (0.300-4.500) uIu/ml HCG, Qual (Negative) HCG, Quant mIU/ml Lyme Disease IgG Ab (Negative) Lyme Disease IgM Ab (Negative) COVID-19 Eval Order SARS-CoV-2 (PCR) (Negative) Blood Type Blood Type Recheck O Positive Antibody Screen Crossmatch Results & Data ([facility]) Vital Signs (Past 12 Hours) Vital Signs Temp Pulse Pulse Resp BP BP Pulse Ox 04/28/21 12:17 37.2 C 100 H 18 93/58 L 98 04/28/21 10:20 97/63 L 04/28/21 07:58 36.9 C 92 H 16 92/57 L 98 04/28/21 07:19 36.9 C 92 H 16 92/57 L 98 04/28/21 06:05 37.1 C 85 14 99/62 L 97 04/28/21 05:00 36.7 C 96 H 16 108/65 97 04/28/21 04:29 36.7 C 105 H 14 94/62 L 98 04/28/21 04:18 36.9 C 113 H 16 103/69 99 04/28/21 03:50 36.3 C L 117 H 16 100/60 98 04/28/21 03:45 126 H 16 102/64 98 04/28/21 03:35 122 H 16 105/65 100 04/28/21 03:25 36.2 C L 116 H 16 101/46 L 100
[2021-04-28 19:45] VITALS: BP 98/64; PULSE 82; TEMP 98.2; O2SAT 99
[2021-04-28 20:47] LABS: Hematocrit (blood only) 26.6 % (37-47); Hemoglobin 9.2 g/dL (12.0-16.0)
--- NOTE | 2021-04-30 10:12 | Electrocardiogram Report ---
Test Reason : Blood Pressure : / mmHG Vent. Rate : 102 BPM Atrial Rate : 102 BPM P-R Int : 120 ms QRS Dur : 080 ms QT Int : 332 ms P-R-T Axes : 062 076 054 degrees QTc Int : 432 ms Sinus tachycardia Incomplete right bundle branch block Possible Left atrial enlargement Borderline ECG No previous ECGs available Confirmed by Niles Bobby ([id number]) on 04/30/2021 10:12:05 AM Referred By: REFERRED SELF Confirmed By:Niles Bobby
--- NOTE | 2021-05-10 12:19 | Discharge Summary (DS) ---
DATE OF ADMISSION: 04/28/2021 REASON FOR ADMISSION AND HOSPITAL COURSE: The patient was admitted on 04/28/2021 from the ER with no history of care. She presents noted to be , had abdominal pain and some nausea. S he was found to have an ectopic , which was ruptured with presence of blood in the belly on imaging studies. The patient was hemodynamically stable. She was brought to the OR for laparoscopic procedure for removal of ectopic . Operation consisted of a laparoscopy with a partial hamzah pingectomy on the right. The patient had approximately 1000 mL of blood in her belly, which was evac uated with the suction and irrigation. No complications were noted from the procedure. The patient was discharged the following morning. She received 2 units of blood after feeling somewhat lethargic and improved after receiving blood. Homegoing instructions were given. CONDITION ON DISCHARGE: Stable. DIET: Regular diet on discharge. FOLLOWUP: Will be in 1 week for incision check and followup appointment. The patient was O positive a nd did not receive any RhoGAM. Job ID: [id number]
== END 2021-04-28 21:04 | disposition home or self-care (01) | DRG 817 ==
LOC: ED 17:43 → OR 04-28 01:09 → 4N 04-28 01:10
DX: E86.0 Dehydration; O00.101 Right tubal pregnancy without intrauterine pregnancy; D64.9 Anemia, unspecified; K66.1 Hemoperitoneum

== ENCOUNTER 2022-06-17 21:48 | Inpatient (IN) ==
[2022-06-17] MEDS ORDERED: OXYTOCIN 30 UNITS/500 ML BAG IV PRN (22:29)
[2022-06-17] MEDS ORDERED: LIDOCAINE 1% LOCAL 20 ML VIAL INFIL PRN (22:29)
[2022-06-17 23:07] LABS: Hematocrit (blood only) 41.9 % (34.1-44.9); Hemoglobin 14.6 g/dl (12.0-16.0); Mean Corpuscular Hemoglobin 31.4 pg (25.0-34.0); Mean Corpuscular Hgb Conc 34.8 g/dL (32.0-36.0); Mean Corpuscular Volume 90.1 fL (80.0-100.0); Mean Platelet Volume 10.9 fL (9.4-12.3); Platelet Count 163 K/uL (130-400); RDW Coefficient of Variation 13.6 % (11.5-14.5); RDW Standard Deviation 44.3 fL (36.4-46.3); Red Blood Count 4.65 M/uL (3.93-5.22)
--- NOTE | 2022-06-18 00:13 | Progress Note ---
Date of Service June 18, 2022 Assessment & Plan (1) : Plan: Pt doing well FHR ; CAT1 ctx; 2-4mins VE /-2 EFW by cynthia; 8-9lbs Admission and Anticipated Discharge Date Admission Date: June 17, 2022 Results & Data ([facility]) Vital Signs (Past 12 Hours) Vital Signs Temp Pulse Resp BP 06/17/22 22:10 37.2 C 18 06/17/22 23:51 37.1 C 06/17/22 23:52 85 135/83 06/17/22 21:56 76 126/79
[2022-06-18] MEDS ORDERED: OXYTOCIN 30 UNITS/500 ML BAG IV PRN (00:16)
[2022-06-18] MEDS: LACTATED RINGER'S 1,000 ML IV PRN ×3 (07:25→15:41)
[2022-06-18] MEDS ORDERED: fentaNYL citrate 100 MCG/2 ML VIAL ONE (07:40)
[2022-06-18] MEDS ORDERED: ePHEDrine sulfate 50 MG/ML AMP ONE (07:40)
[2022-06-18] MEDS ORDERED: fentaNYL 2MCG/ML ROPIVACAINE 1.25MG/ML 100 ML BAG EPI ONE (07:41)
[2022-06-18] MEDS ORDERED: BUPIVACAINE 0.25% 30 ML VIAL ONE (07:41)
[2022-06-18] MEDS ORDERED: SODIUM CHLORIDE 0.9% INJ 10 ML VIAL ONE (07:41)
[2022-06-18] MEDS ORDERED: LIDOCAINE 2%/EPINEPHRINE 1:200,000 20 ML SDV ONE ×2 (07:41→21:11)
--- NOTE | 2022-06-18 07:52 | Anesthesiology Consultation ---
Date of Service June 18, 2022 Assessment & Plan (1) Encounter for pre-operative examination: Chart Review Chart Review: Acceptable Risk for Labor Epidural Consults Requested none ASA ASA2 Proposed Anesthesia Anesthesia Type: Labor Epidural Risk / Benefits Reviewed With: PT / POA / Parent / Guardian, Accepts Plan and Informed Consent Obtained History Height/Weight Height: 5 ft 3 in Weight: 85.275 kg Allergies Allergy/AdvReac Type Severity Reaction Status Date / Time No Known Allergies Allergy Verified 04/10/22 08:49 Medications Home Medications Medication Instructions Recorded Confirmed Last Taken albuterol sulfate 90 mcg/actuation 2 puff inhalation Q6H PRN Allergy 12/01/21 06/17/22 Unknown aerosol inhaler Symptoms vitamin-ferrous sulfate 1 tab PO DAILY 06/17/22 06/17/22 06/16/22 23:00 27 mg iron-folic acid 0.8 mg tablet Active Medications Generic Name Dose Route Start Last Admin Trade Name Freq PRN Reason Stop Dose Admin Lactated Ringer's 1,000 mls @ 125 mls/hr 06/17/22 22:29 06/18/22 07:25 Lr IV 06/19/22 22:28 999 mls/hr .Q8H PRN Administration L&D Protocol Protocol Past Medical History Medical History Asthma Allergy induced. Ruptured right tubal ectopic causing hemoperitoneum Exercise / Class Metabolic Activity II 4-5 Yardwork/Stairs/Walk up hill Past Family History Family History Aunt Ovarian cancer Grandmother Hypertension Diabetes Mother Facial nerve disorder Denies family history of Prostate cancer Myocardial infarction Breast cancer Colorectal cancer Past Surgical History Surgical History No history of previous surgery Past Anesthesia History No Hx of Anesthesia Complications and No Family Hx of Anesthesia Complications History of PONV No Hx of PONV and No Hx of Motion Sickness Social History Smoking Status: Never smoker Hx Alcohol Use: No Hx Substance Use: No Physical Exam Vital Signs Last Vital Signs Temp 98.4 F 06/18/22 07:15 Pulse 74 06/18/22 07:16 Resp 20 06/18/22 07:15 BP 139/88 06/18/22 07:16 ENMT Mouth: no dentition abnormality Thyromental Distance: > or= 3.5 Finger Breadths Mallampati Class: II Neck normal visual inspection Respiratory normal respiratory effort Auscultation: lungs clear to auscultation bilaterally Cardiovascular Rate/Rhythm: regular rate and regular rhythm Testing Laboratory Results 06/17/22 22:41
[2022-06-18] MEDS ORDERED: ePHEDrine sulfate 50 MG/ML AMP IV PRN ×2 (08:14→22:26)
[2022-06-18] MEDS ORDERED: diphenhydrAMINE 50 MG/ML VIAL IV PRN ×2 (08:14→22:26)
[2022-06-18] MEDS ORDERED: NALBUPHINE HCL INJ 10 MG/ML AMP IV PRN ×2 (08:14→22:26)
[2022-06-18] MEDS ORDERED: ONDANSETRON INJ 2 MG/ML 2 ML VIAL IV PRN ×2 (08:14→22:26)
[2022-06-18] MEDS ORDERED: NALOXONE HCL 0.4 MG/1 ML VIAL/CARP IV PRN ×2 (08:14→22:26)
[2022-06-18] MEDS ORDERED: NALOXONE HCL 1 MG in SODIUM CHLORIDE 0.9% 1000ML 1,000 ML IV PRN ×2 (08:14→22:26)
[2022-06-18] MEDS ORDERED: fentaNYL 2MCG/ML ROPIVACAINE 1.25MG/ML 100 ML BAG EPI PRN (08:14)
--- NOTE | 2022-06-18 08:17 | History & Physical Report ---
Date of Service June 18, 2022 Assessment & Plan (1) Uterine contractions at greater than 20 weeks of gestation: Plan: Patient is a 27-year-old at 41 weeks and 4 days of gestation presenting with uterine contractions since June 14, or regular and painful since yesterday, Vital signs stable afebrile, heart rate category 1, GBS negative, No cervical change since admission, Estimated weight over 10 pounds with abnormal Glucola testing during , Discussed the findings and risks of shoulder dystocia in details and recommended primary section, Patient wants to think about it and desires to get repeat ultrasound by radiolog y department, All questions were answered. (2) Labor, prolonged latent phase: (3) Post-term , 40-42 weeks of gestation: (4) Large for gestational age fetus: (5) Abnormal glucose tolerance affecting , antepartum: Admission and Anticipated Discharge Date Admission Date: June 17, 2022 History of Present Illness Primary Care Provider: Byron العلي DO Patient is a 27 yo at 41.4 wks presented today with contractions and in early labor. Admitted by Dr Gómez to around midnight. Initially declined epidural but then requested it this morning and now she is comfortable. She states she has been having uterine contractions since Wednesday night, June 14. They become more regular and painful since Wednesday morning, June 16. She could not sleep yesterday at all and she came last night. She was in office earlier this week and HENRIETTA was 22 and she wanted to wait until 42 weeks to be induced. She was scheduled for induction of labor for June 19, tomorrow. She denies leakage of fluid, vaginal bleeding. She reports good movements. Per her her has been uncomplicated. She failed 50 g Glucola test, the result was 166 mg/dL. Her 3-hour OGTT was 1 level elevated at 205 mg/dL. Rest of the numbers were within normal limits. She was treated as normal and has not checked her fingersticks later and has not followed diabetic diet either. She was measuring normally in the office and never had ultrasound for estimated weight. GBS negative, coronavirus testing is negative. She denies any medical problems, she has environmental allergies and uses albuterol inhaler as needed. By Andrés she is measuring large I performed a bedside ultrasound with estimated weight 4600 g. Fetus is vertex, placenta is fundal posterior, heart rate is 140s. On monitoring heart rate had been category 1, toco is with contractions every 1 to 3 minutes. I checked her cervix and it is the same, 4 cm dilated, 80% effaced, -3 station. Discussed the findings with her as estimated weight is over 10 pounds and no cervical change despite contractions for more than 24 hours. Discussed the risks of shoulder dystocia with LGA and possible gestational diabetes. Discussed risk of shoulder dystocia as nerve/ Brachia plexus injury, Elb's palsy, clavicle fracture, asphyxia even . And recommended primary section. Patient wants to think about this and she desires a repeat ultrasound diet by radiology department while awaiting. All questions were answered. Allergies Allergy/AdvReac Type Severity Reaction Status Date / Time No Known Allergies Allergy Verified 04/10/22 08:49 Home Medications Medication Instructions Recorded Confirmed Type albuterol sulfate 90 mcg/actuation 2 puff inhalation Q6H PRN Allergy 12/01/21 06/17/22 History aerosol inhaler Symptoms vitamin-ferrous sulfate 1 tab PO DAILY 06/17/22 06/17/22 History 27 mg iron-folic acid 0.8 mg tablet Patient History Medical History Asthma Allergy induced. 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 Beliefs That Will Affect Care: None marital status: marital status details: Shannan Current Living Situation: Spouse Current Living Situation Comment: Vin- current occupational status: unemployed Other Information That Helps Us Care for You: No Feels Safe at Home: Yes Safety Concerns: Feels Safe At This Time Childhood Exposure to Second-Hand Smoke: Yes Dental Care, Regularly: Yes Physical Activity Frequency: 3-4 Times per Week Seatbelt Use: always Sunscreen Use: Yes Do you think of yourself as: straight/heterosexual Gender Identity: Female Assistive Devices: None 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 Review of Systems as per Subjective / HPI Physical Exam Constitutional: WD/WN, vitals as above well developed, well nourished and comfortable Gastrointestinal (Abdomen): normal bowel sounds, soft, nontender, no hepatosplenomegaly (With, Andrés 10 pounds) Genitourinary: normal external appearance OB Exam Abdomen: + vertex Manual OB Exam: + cervical dilation 4 cm, + cervical effacement 80% and + station high (-3, ballotable) OB Exam Monitor Tracing: + external uterine monitor used (Contractions every 1 to 3 minutes) and + category I Results & Data ([facility]) Vital Signs (Past 12 Hours) Vital Signs Temp Pulse Resp BP Pulse Ox 06/18/22 07:15 36.9 C 20 06/17/22 22:10 37.2 C 18 06/18/22 08:15 81 131/81 06/18/22 08:13 74 133/74 06/18/22 08:12 73 98 06/18/22 08:11 85 123/69 06/18/22 08:09 74 140/92 06/18/22 08:07 98 06/18/22 08:07 79 06/18/22 08:07 80 138/87 06/18/22 08:05 80 137/89 06/18/22 08:02 80 97 06/18/22 08:03 80 148/88 H 06/18/22 08:01 86 153/93 H 06/18/22 07:59 81 127/77 06/18/22 07:57 90 98 06/18/22 07:52 74 99 06/18/22 07:16 74 139/88 06/18/22 04:34 36.9 C 82 125/76 06/18/22 04:03 75 126/72 06/17/22 23:51 37.1 C 06/17/22 23:52 85 135/83 06/17/22 21:56 76 126/79 Laboratory Results Lab Results 06/17/22 06/17/22 Range/Units 22:32 22:41 WBC 7.50 (4.8-10.8) K/ul RBC 4.65 (3.93-5.22) M/uL Hgb 14.6 (12.0-16.0) g/dl Hct 41.9 (34.1-44.9) % MCV 90.1 (80.0-100.0) fL MCH 31.4 (25.0-34.0) pg MCHC 34.8 (32.0-36.0) g/dL RDW Std Deviation 44.3 (36.4-46.3) fL RDW Coeff of Jorden 13.6 (11.5-14.5) % Plt Count 163 (130-400) K/uL MPV 10.9 (9.4-12.3) fL SARS-CoV-2, RNA, NAAT NEGATIVE (NEGATIVE)
[2022-06-18 10:01] LABS: Albumin Globulin Ratio 1.1 (0.9-2); Albumin Level 3.3 gm/dl (3.4-5.0); BUN Creatinine Ratio 12.3 (10-20); Bilirubin,Total 0.6 mg/dl (0.2-1.0); Creatinine Clr Calc Pharmacy 153.4 ml/min; Est GFR (African American) 147.2 ml/min; Globulin 2.9 gm/dl (2.5-4.0); Potassium 3.9 mmol/L (3.5-5.1); Total Protein 6.2 gm/dl (6.0-8.3)
--- NOTE | 2022-06-18 11:00 | Ultrasound Report ---
US OB limited CLINICAL HISTORY: large for gestational age, EFW 4600 gr. Estimated weight. COMPARISON STUDY: Obstetrical ultrasound 06/07/2021. FINDINGS: Real-time sonographic imaging of the fetus was performed with artists' booking representative images submitt ed. heart rate was 134 BPM. A full anatomic survey was not performed. There is a partially visu alized anterior placenta. Estimated age is 40 weeks and 0 days +/- 1 week. Estimated weig ht is 10 pounds and 1 ounce +/- 1 pound and 8 ounces. IMPRESSION: 1. A single viable 40 week and 0 day intrauterine gestation. 2. Estimated weight is 10 pounds and 1 ounce +/- 1 pound and 8 ounces. ACT 112: Negative or not required by law. Electronically signed by: Blas Zepeda M.D. 06/18/2022 10:58 AM
--- NOTE | 2022-06-18 12:17 | Obstetrical Progress Note ---
Date of Service June 18, 2022 Assessment & Plan Admission and Anticipated Discharge Date Admission Date: June 17, 2022 Subjective Patient is reevaluated. She feels well, no complaints. Ultrasound was completed. Estimated weight 10 pounds 1 ounce +/- 1 pound 8 ounce. Patient understand estimated weight is over 10 pounds. She does not want to have now she wants to try laboring first and see what happens. She desires oxytocin and AROM if possible. Checked her cervix again, 4 cm, 80%, head is ballotable, unable to AROM. Her Rotor Pilot is here with her. I discussed the risks of macrosomia, protracted labor, intermittent infection, shoulder dystocia, injury to brachial plexus with Erb's palsy, clavicle fracture, asphyxia even . Patient understands all and still plans to try labor in first. She states if labor is longer than expected she will decide for . She understands she will need more antibiotics if she labors and then goes for . All questions were answered. Results & Data ([facility]) Vital Signs (Past 12 Hours) Vital Signs Temp Pulse Resp BP Pulse Ox 06/18/22 07:15 36.9 C 20 06/18/22 12:07 76 98 06/18/22 12:05 86 133/88 06/18/22 12:02 78 98 06/18/22 11:57 82 96 06/18/22 11:52 82 99 06/18/22 11:50 82 127/86 06/18/22 11:47 79 98 06/18/22 11:42 69 98 06/18/22 11:37 81 118/71 99 06/18/22 11:30 18 06/18/22 11:30 18 06/18/22 11:32 78 97 06/18/22 11:27 81 98 06/18/22 11:22 77 98 06/18/22 11:21 70 117/74 06/18/22 11:17 72 98 06/18/22 11:12 71 98 06/18/22 11:07 71 99 06/18/22 11:05 71 125/80 06/18/22 11:02 78 97 06/18/22 10:57 73 98 06/18/22 10:52 82 97 06/18/22 10:50 82 121/76 06/18/22 10:47 71 99 06/18/22 10:42 70 97 06/18/22 10:37 77 97 06/18/22 10:35 71 124/81 06/18/22 10:30 18 06/18/22 10:30 18 06/18/22 10:32 78 97 06/18/22 10:27 79 97 06/18/22 10:22 88 97 06/18/22 10:21 75 128/84 06/18/22 10:17 76 97 06/18/22 10:12 89 95 06/18/22 10:07 82 96 06/18/22 10:05 81 126/86 06/18/22 10:02 77 98 06/18/22 09:57 80 96 06/18/22 09:52 76 97 06/18/22 09:50 82 130/83 06/18/22 09:47 70 97 06/18/22 09:42 85 97 06/18/22 09:30 18 06/18/22 09:30 18 06/18/22 09:37 77 99 06/18/22 09:35 83 119/84 06/18/22 09:32 84 97 06/18/22 09:27 88 97 06/18/22 09:22 84 98 06/18/22 09:20 85 130/90 06/18/22 09:17 79 99 06/18/22 09:12 97 06/18/22 09:12 88 06/18/22 09:12 86 92 06/18/22 09:07 88 97 06/18/22 09:01 18 06/18/22 09:01 18 06/18/22 09:06 87 128/84 06/18/22 09:02 88 97 06/18/22 08:57 105 H 96 06/18/22 08:52 84 98 06/18/22 08:49 107 H 157/93 H 93 06/18/22 08:47 77 99 06/18/22 08:43 74 125/76 06/18/22 08:42 76 98 06/18/22 08:38 78 130/80 06/18/22 08:37 78 99 06/18/22 08:35 18 06/18/22 08:35 18 06/18/22 08:34 71 126/75 06/18/22 08:32 77 99 06/18/22 08:27 74 99 06/18/22 08:28 75 128/87 06/18/22 08:25 74 18 122/76 06/18/22 08:23 75 131/80 06/18/22 08:22 75 98 06/18/22 08:21 82 20 130/80 06/18/22 08:19 82 131/80 06/18/22 08:17 74 20 123/78 98 06/18/22 08:15 81 18 131/81 06/18/22 08:13 74 133/74 06/18/22 08:12 73 18 98 06/18/22 08:11 85 123/69 06/18/22 08:09 74 140/92 06/18/22 08:07 98 06/18/22 08:07 79 06/18/22 08:07 80 138/87 06/18/22 08:05 80 137/89 06/18/22 08:02 80 97 06/18/22 08:03 80 148/88 H 06/18/22 08:01 86 153/93 H 06/18/22 07:59 81 127/77 06/18/22 07:57 90 98 06/18/22 07:52 74 99 06/18/22 07:16 74 139/88 06/18/22 04:34 36.9 C 82 125/76 06/18/22 04:03 75 126/72
--- NOTE | 2022-06-18 13:52 | Obstetrical Progress Note ---
Date of Service June 18, 2022 Assessment & Plan Admission and Anticipated Discharge Date Admission Date: June 17, 2022 Subjective Patient is reevaluated. She has been sleeping. FHR categ I Oxytocin is at 6 miu/min VE: 4-5 cm/ 80%/ -2, engaged, bulging bag, AROM'ed, clear fluid Continue to monitor closely. Results & Data ([facility]) Vital Signs (Past 12 Hours) Vital Signs Temp Pulse Resp BP Pulse Ox 06/18/22 07:15 36.9 C 20 06/18/22 13:47 89 98 06/18/22 13:42 86 98 06/18/22 13:37 80 98 06/18/22 13:35 88 134/79 06/18/22 13:00 20 06/18/22 13:00 20 06/18/22 13:32 83 97 06/18/22 13:30 18 06/18/22 13:30 18 06/18/22 13:27 87 97 06/18/22 13:22 77 97 06/18/22 13:20 85 138/77 06/18/22 13:17 79 97 06/18/22 13:12 86 97 06/18/22 13:07 80 97 06/18/22 13:05 86 126/75 06/18/22 13:02 83 96 06/18/22 12:57 80 96 06/18/22 12:52 79 97 06/18/22 12:51 77 129/79 06/18/22 12:47 72 97 06/18/22 12:42 81 96 06/18/22 12:37 94 H 97 06/18/22 12:30 18 06/18/22 12:30 18 06/18/22 12:36 86 124/80 06/18/22 12:32 78 97 06/18/22 12:00 18 06/18/22 12:00 36.9 C 18 06/18/22 12:27 73 98 06/18/22 12:22 86 97 06/18/22 12:20 80 132/82 06/18/22 12:17 85 97 06/18/22 12:12 94 H 99 06/18/22 12:07 76 98 06/18/22 12:05 86 133/88 06/18/22 12:02 78 98 10/13/22 11:57 82 96 06/18/22 11:52 82 99 06/18/22 11:50 82 127/86 06/18/22 11:47 79 98 06/18/22 11:42 69 98 06/18/22 11:37 81 118/71 99 06/18/22 11:30 18 06/18/22 11:30 18 06/18/22 11:32 78 97 06/18/22 11:27 81 98 06/18/22 11:22 77 98 06/18/22 11:21 70 117/74 06/18/22 11:17 72 98 06/18/22 11:12 71 98 06/18/22 11:07 71 99 06/18/22 11:05 71 125/80 06/18/22 11:02 78 97 06/18/22 10:57 73 98 06/18/22 10:52 82 97 06/18/22 10:50 82 121/76 06/18/22 10:47 71 99 06/18/22 10:42 70 97 06/18/22 10:37 77 97 06/18/22 10:35 71 124/81 06/18/22 10:30 18 06/18/22 10:30 18 06/18/22 10:32 78 97 06/18/22 10:27 79 97 06/18/22 10:22 88 97 06/18/22 10:21 75 128/84 06/18/22 10:17 76 97 06/18/22 10:12 89 95 06/18/22 10:07 82 96 06/18/22 10:05 81 126/86 06/18/22 10:02 77 98 06/18/22 09:57 80 96 06/18/22 09:52 76 97 06/18/22 09:50 82 130/83 06/18/22 09:47 70 97 06/18/22 09:42 85 97 06/18/22 09:30 18 06/18/22 09:30 18 06/18/22 09:37 77 99 06/18/22 09:35 83 119/84 06/18/22 09:32 84 97 06/18/22 09:27 88 97 06/18/22 09:22 84 98 06/18/22 09:20 85 130/90 06/18/22 09:17 79 99 06/18/22 09:12 97 06/18/22 09:12 88 06/18/22 09:12 86 92 06/18/22 09:07 88 97 06/18/22 09:01 18 06/18/22 09:01 18 06/18/22 09:06 87 128/84 06/18/22 09:02 88 97 06/18/22 08:57 105 H 96 06/18/22 08:52 84 98 06/18/22 08:49 107 H 157/93 H 93 06/18/22 08:47 77 99 06/18/22 08:43 74 125/76 06/18/22 08:42 76 98 06/18/22 08:38 78 130/80 06/18/22 08:37 78 99 06/18/22 08:35 18 06/18/22 08:35 18 06/18/22 08:34 71 126/75 06/18/22 08:32 77 99 06/18/22 08:27 74 99 06/18/22 08:28 75 128/87 06/18/22 08:25 74 18 122/76 06/18/22 08:23 75 131/80 06/18/22 08:22 75 98 06/18/22 08:21 82 20 130/80 06/18/22 08:19 82 131/80 06/18/22 08:17 74 20 123/78 98 06/18/22 08:15 81 18 131/81 06/18/22 08:13 74 133/74 06/18/22 08:12 73 18 98 06/18/22 08:11 85 123/69 06/18/22 08:09 74 140/92 06/18/22 08:07 98 06/18/22 08:07 79 06/18/22 08:07 80 138/87 06/18/22 08:05 80 137/89 06/18/22 08:02 80 97 06/18/22 08:03 80 148/88 H 06/18/22 08:01 86 153/93 H 06/18/22 07:59 81 127/77 06/18/22 07:57 90 98 06/18/22 07:52 74 99 06/18/22 07:16 74 139/88 06/18/22 04:34 36.9 C 82 125/76 06/18/22 04:03 75 126/72
--- NOTE | 2022-06-18 16:50 | Obstetrical Progress Note ---
Date of Service June 18, 2022 Assessment & Plan Admission and Anticipated Discharge Date Admission Date: June 17, 2022 Subjective Patient feels well, no complaints VE: Blood show+, cervix 5 cm/ 80%/ 0 station, no major chnage in dilatation but change in station from -2 to 0. FHR categ I [place] ctxs q 1-2 min, Oxytocin is at 8 miu/min Patient desires to continue with trial of VD She understands unpredictability of shoulder dystocia and no going back for C section after head is delivered. All questions were answered. Results & Data ([facility]) Vital Signs (Past 12 Hours) Vital Signs Temp Pulse Resp BP Pulse Ox 06/18/22 07:15 36.9 C 20 06/18/22 16:42 74 99 06/18/22 16:37 78 99 06/18/22 16:35 67 144/84 H 06/18/22 16:30 16 06/18/22 16:30 16 06/18/22 16:32 76 97 06/18/22 16:27 87 97 06/18/22 16:22 79 99 06/18/22 16:21 73 117/71 06/18/22 16:17 90 98 06/18/22 16:12 71 98 06/18/22 16:07 84 114/71 99 06/18/22 16:00 18 06/18/22 16:00 18 06/18/22 16:02 76 98 06/18/22 15:57 78 98 06/18/22 15:52 75 99 06/18/22 15:51 75 121/77 06/18/22 15:47 83 97 06/18/22 15:42 83 98 06/18/22 15:37 73 96 06/18/22 15:35 82 134/84 06/18/22 15:32 81 95 06/18/22 15:27 73 96 06/18/22 15:24 83 94 06/18/22 15:22 76 96 06/18/22 15:20 81 133/85 06/18/22 15:17 94 H 98 06/18/22 15:12 82 96 06/18/22 15:07 85 96 06/18/22 15:05 82 136/87 06/18/22 15:02 81 96 06/18/22 14:57 83 97 06/18/22 14:30 18 06/18/22 14:30 18 06/18/22 14:52 79 96 06/18/22 14:50 82 130/81 06/18/22 14:47 82 96 06/18/22 14:42 78 96 06/18/22 14:37 76 96 06/18/22 14:36 82 132/77 06/18/22 14:32 82 96 06/18/22 14:27 73 97 06/18/22 14:22 98 06/18/22 14:22 78 06/18/22 14:22 73 136/82 06/18/22 14:17 79 98 06/18/22 14:12 79 97 06/18/22 14:00 18 06/18/22 14:00 18 06/18/22 14:07 80 97 06/18/22 14:06 74 129/84 06/18/22 14:02 73 97 06/18/22 13:57 75 98 06/18/22 13:45 18 06/18/22 13:45 36.9 C 18 06/18/22 13:52 73 97 06/18/22 13:50 76 122/70 06/18/22 13:47 89 98 06/18/22 13:42 86 98 06/18/22 13:37 80 98 06/18/22 13:35 88 134/79 06/18/22 13:00 20 06/18/22 13:00 20 06/18/22 13:32 83 97 06/18/22 13:30 18 06/18/22 13:30 18 06/18/22 13:27 87 97 06/18/22 13:22 77 97 06/18/22 13:20 85 138/77 06/18/22 13:17 79 97 06/18/22 13:12 86 97 06/18/22 13:07 80 97 06/18/22 13:05 86 126/75 06/18/22 13:02 83 96 06/18/22 12:57 80 96 06/18/22 12:52 79 97 06/18/22 12:51 77 129/79 06/18/22 12:47 72 97 06/18/22 12:42 81 96 06/18/22 12:37 94 H 97 06/18/22 12:30 18 06/18/22 12:30 18 06/18/22 12:36 86 124/80 06/18/22 12:32 78 97 06/18/22 12:00 18 06/18/22 12:00 36.9 C 18 06/18/22 12:27 73 98 06/18/22 12:22 86 97 06/18/22 12:20 80 132/82 06/18/22 12:17 85 97 06/18/22 12:12 94 H 99 06/18/22 12:07 76 98 06/18/22 12:05 86 133/88 06/18/22 12:02 78 98 06/18/22 11:57 82 96 06/18/22 11:52 82 99 06/18/22 11:50 82 127/86 06/18/22 11:47 79 98 06/18/22 11:42 69 98 06/18/22 11:37 81 118/71 99 06/18/22 11:30 18 06/18/22 11:30 18 06/18/22 11:32 78 97 06/18/22 11:27 81 98 06/18/22 11:22 77 98 06/18/22 11:21 70 117/74 06/18/22 11:17 72 98 06/18/22 11:12 71 98 06/18/22 11:07 71 99 06/18/22 11:05 71 125/80 06/18/22 11:02 78 97 06/18/22 10:57 73 98 06/18/22 10:52 82 97 06/18/22 10:50 82 121/76 06/18/22 10:47 71 99 06/18/22 10:42 70 97 06/18/22 10:37 77 97 06/18/22 10:35 71 124/81 06/18/22 10:30 18 06/18/22 10:30 18 06/18/22 10:32 78 97 06/18/22 10:27 79 97 06/18/22 10:22 88 97 06/18/22 10:21 75 128/84 06/18/22 10:17 76 97 06/18/22 10:12 89 95 06/18/22 10:07 82 96 06/18/22 10:05 81 126/86 06/18/22 10:02 77 98 06/18/22 09:57 80 96 06/18/22 09:52 76 97 06/18/22 09:50 82 130/83 06/18/22 09:47 70 97 06/18/22 09:42 85 97 06/18/22 09:30 18 06/18/22 09:30 18 06/18/22 09:37 77 99 06/18/22 09:35 83 119/84 06/18/22 09:32 84 97 06/18/22 09:27 88 97 06/18/22 09:22 84 98 06/18/22 09:20 85 130/90 06/18/22 09:17 79 99 06/18/22 09:12 97 06/18/22 09:12 88 06/18/22 09:12 86 92 06/18/22 09:07 88 97 06/18/22 09:01 18 06/18/22 09:01 18 06/18/22 09:06 87 128/84 06/18/22 09:02 88 97 06/18/22 08:57 105 H 96 06/18/22 08:52 84 98 06/18/22 08:49 107 H 157/93 H 93 06/18/22 08:47 77 99 06/18/22 08:43 74 125/76 06/18/22 08:42 76 98 06/18/22 08:38 78 130/80 06/18/22 08:37 78 99 06/18/22 08:35 18 06/18/22 08:35 18 06/18/22 08:34 71 126/75 06/18/22 08:32 77 99 06/18/22 08:27 74 99 06/18/22 08:28 75 128/87 06/18/22 08:25 74 18 122/76 06/18/22 08:23 75 131/80 06/18/22 08:22 75 98 06/18/22 08:21 82 20 130/80 06/18/22 08:19 82 131/80 06/18/22 08:17 74 20 123/78 98 06/18/22 08:15 81 18 131/81 06/18/22 08:13 74 133/74 06/18/22 08:12 73 18 98 06/18/22 08:11 85 123/69 06/18/22 08:09 74 140/92 06/18/22 08:07 98 06/18/22 08:07 79 06/18/22 08:07 80 138/87 06/18/22 08:05 80 137/89 06/18/22 08:02 80 97 06/18/22 08:03 80 148/88 H 06/18/22 08:01 86 153/93 H 06/18/22 07:59 81 127/77 06/18/22 07:57 90 98 06/18/22 07:52 74 99 06/18/22 07:16 74 139/88
--- NOTE | 2022-06-18 18:43 | Obstetrical Progress Note ---
Date of Service June 18, 2022 Assessment & Plan Admission and Anticipated Discharge Date Admission Date: June 17, 2022 Subjective Patient had another blood show, about 50 ml blood on pads Still comfortable, no pain, nor pressure FHR categ I Ctxs q 1-2 min VE; unchanged, 5/ 80%/ 0, cones head IUP at 41.4 wks with Suspected Macrosomia, EFW: >10 lb, abnormal glucola most likely undiagnosed/ untreated GDM, no cervical change Recommended primary Csection Patient had been for trial of labor and declined CSection I recommended again and she wants to think about it an decide. Results & Data ([facility]) Vital Signs (Past 12 Hours) Vital Signs Temp Pulse Resp BP Pulse Ox 06/18/22 07:15 36.9 C 20 06/18/22 18:30 18 06/18/22 18:30 18 06/18/22 18:37 84 100 06/18/22 18:35 75 147/86 H 06/18/22 18:32 73 100 06/18/22 18:27 78 97 06/18/22 18:22 84 98 06/18/22 18:20 91 H 136/88 06/18/22 18:17 76 99 06/18/22 18:12 98 H 98 06/18/22 18:07 85 96 06/18/22 18:05 74 142/89 H 06/18/22 18:02 80 97 06/18/22 15:45 36.9 C 06/18/22 17:45 37.0 C 06/18/22 18:00 18 06/18/22 18:00 18 06/18/22 17:57 75 95 06/18/22 17:52 74 96 06/18/22 17:51 85 139/89 06/18/22 17:47 78 97 06/18/22 17:30 18 06/18/22 17:30 18 06/18/22 17:42 73 96 06/18/22 17:00 18 06/18/22 17:00 18 06/18/22 17:37 74 96 06/18/22 17:35 71 140/87 06/18/22 17:32 75 97 06/18/22 17:27 101 H 96 06/18/22 17:22 83 97 06/18/22 17:21 83 131/89 06/18/22 17:17 88 98 06/18/22 17:12 84 97 06/18/22 17:07 86 98 06/18/22 17:06 76 139/85 06/18/22 17:02 88 98 06/18/22 16:57 79 97 06/18/22 16:52 86 98 06/18/22 16:51 75 140/85 06/18/22 16:47 75 98 06/18/22 16:42 74 99 06/18/22 16:37 78 99 06/18/22 16:35 67 144/84 H 06/18/22 16:30 16 06/18/22 16:30 16 06/18/22 16:32 76 97 06/18/22 16:27 87 97 06/18/22 16:22 79 99 06/18/22 16:21 73 117/71 06/18/22 16:17 90 98 06/18/22 16:12 71 98 06/18/22 16:07 84 114/71 99 06/18/22 16:00 18 06/18/22 16:00 18 06/18/22 16:02 76 98 06/18/22 15:57 78 98 06/18/22 15:52 75 99 06/18/22 15:51 75 121/77 06/18/22 15:47 83 97 06/18/22 15:42 83 98 06/18/22 15:37 73 96 06/18/22 15:35 82 134/84 06/18/22 15:32 81 95 06/18/22 15:27 73 96 06/18/22 15:24 83 94 06/18/22 15:22 76 96 06/18/22 15:20 81 133/85 06/18/22 15:17 94 H 98 06/18/22 15:12 82 96 06/18/22 15:07 85 96 06/18/22 15:05 82 136/87 06/18/22 15:02 81 96 06/18/22 14:57 83 97 06/18/22 14:30 18 06/18/22 14:30 18 06/18/22 14:52 79 96 06/18/22 14:50 82 130/81 06/18/22 14:47 82 96 06/18/22 14:42 78 96 06/18/22 14:37 76 96 06/18/22 14:36 82 132/77 06/18/22 14:32 82 96 06/18/22 14:27 73 97 06/18/22 14:22 98 06/18/22 14:22 78 06/18/22 14:22 73 136/82 06/18/22 14:17 79 98 06/18/22 14:12 79 97 06/18/22 14:00 18 06/18/22 14:00 18 06/18/22 14:07 80 97 06/18/22 14:06 74 129/84 06/18/22 14:02 73 97 06/18/22 13:57 75 98 06/18/22 13:45 18 06/18/22 13:45 36.9 C 18 06/18/22 13:52 73 97 06/18/22 13:50 76 122/70 06/18/22 13:47 89 98 06/18/22 13:42 86 98 06/18/22 13:37 80 98 06/18/22 13:35 88 134/79 06/18/22 13:00 20 06/18/22 13:00 20 06/18/22 13:32 83 97 06/18/22 13:30 18 06/18/22 13:30 18 06/18/22 13:27 87 97 06/18/22 13:22 77 97 06/18/22 13:20 85 138/77 06/18/22 13:17 79 97 06/18/22 13:12 86 97 06/18/22 13:07 80 97 06/18/22 13:05 86 126/75 06/18/22 13:02 83 96 06/18/22 12:57 80 96 06/18/22 12:52 79 97 06/18/22 12:51 77 129/79 06/18/22 12:47 72 97 06/18/22 12:42 81 96 06/18/22 12:37 94 H 97 06/18/22 12:30 18 06/18/22 12:30 18 06/18/22 12:36 86 124/80 06/18/22 12:32 78 97 06/18/22 12:00 18 06/18/22 12:00 36.9 C 18 06/18/22 12:27 73 98 06/18/22 12:22 86 97 06/18/22 12:20 80 132/82 06/18/22 12:17 85 97 06/18/22 12:12 94 H 99 06/18/22 12:07 76 98 06/18/22 12:05 86 133/88 06/18/22 12:02 78 98 06/18/22 11:57 82 96 06/18/22 11:52 82 99 06/18/22 11:50 82 127/86 06/18/22 11:47 79 98 06/18/22 11:42 69 98 06/18/22 11:37 81 118/71 99 06/18/22 11:30 18 06/18/22 11:30 18 06/18/22 11:32 78 97 06/18/22 11:27 81 98 06/18/22 11:22 77 98 06/18/22 11:21 70 117/74 06/18/22 11:17 72 98 06/18/22 11:12 71 98 06/18/22 11:07 71 99 06/18/22 11:05 71 125/80 06/18/22 11:02 78 97 06/18/22 10:57 73 98 06/18/22 10:52 82 97 06/18/22 10:50 82 121/76 06/18/22 10:47 71 99 06/18/22 10:42 70 97 06/18/22 10:37 77 97 06/18/22 10:35 71 124/81 06/18/22 10:30 18 06/18/22 10:30 18 06/18/22 10:32 78 97 06/18/22 10:27 79 97 06/18/22 10:22 88 97 06/18/22 10:21 75 128/84 06/18/22 10:17 76 97 06/18/22 10:12 89 95 06/18/22 10:07 82 96 06/18/22 10:05 81 126/86 06/18/22 10:02 77 98 06/18/22 09:57 80 96 06/18/22 09:52 76 97 06/18/22 09:50 82 130/83 06/18/22 09:47 70 97 06/18/22 09:42 85 97 06/18/22 09:30 18 06/18/22 09:30 18 10/13/22 09:37 77 99 06/18/22 09:35 83 119/84 06/18/22 09:32 84 97 06/18/22 09:27 88 97 06/18/22 09:22 84 98 06/18/22 09:20 85 130/90 06/18/22 09:17 79 99 06/18/22 09:12 97 06/18/22 09:12 88 06/18/22 09:12 86 92 06/18/22 09:07 88 97 06/18/22 09:01 18 06/18/22 09:01 18 06/18/22 09:06 87 128/84 06/18/22 09:02 88 97 06/18/22 08:57 105 H 96 06/18/22 08:52 84 98 06/18/22 08:49 107 H 157/93 H 93 06/18/22 08:47 77 99 06/18/22 08:43 74 125/76 06/18/22 08:42 76 98 06/18/22 08:38 78 130/80 06/18/22 08:37 78 99 06/18/22 08:35 18 06/18/22 08:35 18 06/18/22 08:34 71 126/75 06/18/22 08:32 77 99 06/18/22 08:27 74 99 06/18/22 08:28 75 128/87 06/18/22 08:25 74 18 122/76 06/18/22 08:23 75 131/80 06/18/22 08:22 75 98 06/18/22 08:21 82 20 130/80 06/18/22 08:19 82 131/80 06/18/22 08:17 74 20 123/78 98 06/18/22 08:15 81 18 131/81 06/18/22 08:13 74 133/74 06/18/22 08:12 73 18 98 06/18/22 08:11 85 123/69 06/18/22 08:09 74 140/92 06/18/22 08:07 98 06/18/22 08:07 79 06/18/22 08:07 80 138/87 06/18/22 08:05 80 137/89 06/18/22 08:02 80 97 06/18/22 08:03 80 148/88 H 06/18/22 08:01 86 153/93 H 06/18/22 07:59 81 127/77 06/18/22 07:57 90 98 06/18/22 07:52 74 99 06/18/22 07:16 74 139/88
--- NOTE | 2022-06-18 19:14 | Obstetrical Progress Note ---
Date of Service June 18, 2022 Assessment & Plan Admission and Anticipated Discharge Date Admission Date: June 17, 2022 Subjective Patient had questions about C section, recovery and breast feeding afterwards. Answered them all. She still wants to think about this and digest before she decides. FHR categ I Continue to monitor closely. Results & Data ([facility]) Vital Signs (Past 12 Hours) Vital Signs Temp Pulse Resp BP Pulse Ox 06/18/22 07:15 36.9 C 20 06/18/22 19:07 86 99 06/18/22 19:05 77 142/83 H 06/18/22 19:02 81 99 06/18/22 18:57 88 99 06/18/22 18:52 89 99 06/18/22 18:50 87 137/101 H 06/18/22 18:47 94 H 98 06/18/22 18:42 83 99 06/18/22 18:30 18 06/18/22 18:30 18 06/18/22 18:37 84 100 06/18/22 18:35 75 147/86 H 06/18/22 18:32 73 100 06/18/22 18:27 78 97 06/18/22 18:22 84 98 06/18/22 18:20 91 H 136/88 06/18/22 18:17 76 99 06/18/22 18:12 98 H 98 06/18/22 18:07 85 96 06/18/22 18:05 74 142/89 H 06/18/22 18:02 80 97 06/18/22 15:45 36.9 C 06/18/22 17:45 37.0 C 06/18/22 18:00 18 06/18/22 18:00 18 06/18/22 17:57 75 95 06/18/22 17:52 74 96 06/18/22 17:51 85 139/89 06/18/22 17:47 78 97 06/18/22 17:30 18 06/18/22 17:30 18 06/18/22 17:42 73 96 06/18/22 17:00 18 06/18/22 17:00 18 06/18/22 17:37 74 96 06/18/22 17:35 71 140/87 06/18/22 17:32 75 97 06/18/22 17:27 101 H 96 06/18/22 17:22 83 97 06/18/22 17:21 83 131/89 06/18/22 17:17 88 98 06/18/22 17:12 84 97 06/18/22 17:07 86 98 06/18/22 17:06 76 139/85 06/18/22 17:02 88 98 06/18/22 16:57 79 97 06/18/22 16:52 86 98 06/18/22 16:51 75 140/85 06/18/22 16:47 75 98 06/18/22 16:42 74 99 06/18/22 16:37 78 99 06/18/22 16:35 67 144/84 H 06/18/22 16:30 16 06/18/22 16:30 16 06/18/22 16:32 76 97 06/18/22 16:27 87 97 06/18/22 16:22 79 99 06/18/22 16:21 73 117/71 06/18/22 16:17 90 98 06/18/22 16:12 71 98 06/18/22 16:07 84 114/71 99 06/18/22 16:00 18 06/18/22 16:00 18 06/18/22 16:02 76 98 06/18/22 15:57 78 98 06/18/22 15:52 75 99 06/18/22 15:51 75 121/77 06/18/22 15:47 83 97 06/18/22 15:42 83 98 06/18/22 15:37 73 96 06/18/22 15:35 82 134/84 06/18/22 15:32 81 95 06/18/22 15:27 73 96 06/18/22 15:24 83 94 06/18/22 15:22 76 96 06/18/22 15:20 81 133/85 06/18/22 15:17 94 H 98 06/18/22 15:12 82 96 06/18/22 15:07 85 96 06/18/22 15:05 82 136/87 06/18/22 15:02 81 96 06/18/22 14:57 83 97 06/18/22 14:30 18 06/18/22 14:30 18 06/18/22 14:52 79 96 06/18/22 14:50 82 130/81 06/18/22 14:47 82 96 10/13/22 14:42 78 96 06/18/22 14:37 76 96 06/18/22 14:36 82 132/77 06/18/22 14:32 82 96 06/18/22 14:27 73 97 06/18/22 14:22 98 06/18/22 14:22 78 06/18/22 14:22 73 136/82 06/18/22 14:17 79 98 06/18/22 14:12 79 97 06/18/22 14:00 18 06/18/22 14:00 18 06/18/22 14:07 80 97 06/18/22 14:06 74 129/84 06/18/22 14:02 73 97 06/18/22 13:57 75 98 06/18/22 13:45 18 06/18/22 13:45 36.9 C 18 06/18/22 13:52 73 97 06/18/22 13:50 76 122/70 06/18/22 13:47 89 98 06/18/22 13:42 86 98 06/18/22 13:37 80 98 06/18/22 13:35 88 134/79 06/18/22 13:00 20 06/18/22 13:00 20 06/18/22 13:32 83 97 06/18/22 13:30 18 06/18/22 13:30 18 06/18/22 13:27 87 97 06/18/22 13:22 77 97 06/18/22 13:20 85 138/77 06/18/22 13:17 79 97 06/18/22 13:12 86 97 06/18/22 13:07 80 97 06/18/22 13:05 86 126/75 06/18/22 13:02 83 96 06/18/22 12:57 80 96 06/18/22 12:52 79 97 06/18/22 12:51 77 129/79 06/18/22 12:47 72 97 06/18/22 12:42 81 96 06/18/22 12:37 94 H 97 06/18/22 12:30 18 06/18/22 12:30 18 06/18/22 12:36 86 124/80 06/18/22 12:32 78 97 06/18/22 12:00 18 06/18/22 12:00 36.9 C 18 06/18/22 12:27 73 98 06/18/22 12:22 86 97 06/18/22 12:20 80 132/82 06/18/22 12:17 85 97 06/18/22 12:12 94 H 99 06/18/22 12:07 76 98 06/18/22 12:05 86 133/88 06/18/22 12:02 78 98 06/18/22 11:57 82 96 06/18/22 11:52 82 99 06/18/22 11:50 82 127/86 06/18/22 11:47 79 98 06/18/22 11:42 69 98 06/18/22 11:37 81 118/71 99 06/18/22 11:30 18 06/18/22 11:30 18 06/18/22 11:32 78 97 06/18/22 11:27 81 98 06/18/22 11:22 77 98 06/18/22 11:21 70 117/74 06/18/22 11:17 72 98 06/18/22 11:12 71 98 06/18/22 11:07 71 99 06/18/22 11:05 71 125/80 06/18/22 11:02 78 97 06/18/22 10:57 73 98 06/18/22 10:52 82 97 06/18/22 10:50 82 121/76 06/18/22 10:47 71 99 06/18/22 10:42 70 97 06/18/22 10:37 77 97 06/18/22 10:35 71 124/81 06/18/22 10:30 18 06/18/22 10:30 18 06/18/22 10:32 78 97 06/18/22 10:27 79 97 06/18/22 10:22 88 97 06/18/22 10:21 75 128/84 06/18/22 10:17 76 97 06/18/22 10:12 89 95 06/18/22 10:07 82 96 06/18/22 10:05 81 126/86 06/18/22 10:02 77 98 06/18/22 09:57 80 96 06/18/22 09:52 76 97 06/18/22 09:50 82 130/83 06/18/22 09:47 70 97 06/18/22 09:42 85 97 06/18/22 09:30 18 06/18/22 09:30 18 06/18/22 09:37 77 99 06/18/22 09:35 83 119/84 06/18/22 09:32 84 97 06/18/22 09:27 88 97 06/18/22 09:22 84 98 06/18/22 09:20 85 130/90 06/18/22 09:17 79 99 06/18/22 09:12 97 06/18/22 09:12 88 06/18/22 09:12 86 92 06/18/22 09:07 88 97 06/18/22 09:01 18 06/18/22 09:01 18 06/18/22 09:06 87 128/84 06/18/22 09:02 88 97 06/18/22 08:57 105 H 96 06/18/22 08:52 84 98 06/18/22 08:49 107 H 157/93 H 93 06/18/22 08:47 77 99 06/18/22 08:43 74 125/76 06/18/22 08:42 76 98 06/18/22 08:38 78 130/80 06/18/22 08:37 78 99 06/18/22 08:35 18 06/18/22 08:35 18 06/18/22 08:34 71 126/75 06/18/22 08:32 77 99 06/18/22 08:27 74 99 06/18/22 08:28 75 128/87 06/18/22 08:25 74 18 122/76 06/18/22 08:23 75 131/80 06/18/22 08:22 75 98 06/18/22 08:21 82 20 130/80 06/18/22 08:19 82 131/80 06/18/22 08:17 74 20 123/78 98 06/18/22 08:15 81 18 131/81 06/18/22 08:13 74 133/74 06/18/22 08:12 73 18 98 06/18/22 08:11 85 123/69 06/18/22 08:09 74 140/92 06/18/22 08:07 98 06/18/22 08:07 79 06/18/22 08:07 80 138/87 06/18/22 08:05 80 137/89 06/18/22 08:02 80 97 06/18/22 08:03 80 148/88 H 06/18/22 08:01 86 153/93 H 06/18/22 07:59 81 127/77 06/18/22 07:57 90 98 06/18/22 07:52 74 99 06/18/22 07:16 74 139/88
--- NOTE | 2022-06-18 20:32 | Obstetrical Progress Note ---
Date of Service June 18, 2022 Assessment & Plan Admission and Anticipated Discharge Date Admission Date: June 17, 2022 Subjective Patient wants ti be checked and decide for Csection VE; unchanged, 5-6 cm/ 80%/ 0, cones head, feels warm FHR categ I Patient decided for Csection Understands the risks and benefits and signed an informed consent. All questions were answered. Results & Data ([facility]) Vital Signs (Past 12 Hours) Vital Signs Temp Pulse Resp BP Pulse Ox 06/18/22 20:27 80 97 06/18/22 20:22 86 97 06/18/22 20:20 88 124/86 06/18/22 20:17 86 97 06/18/22 20:12 81 98 06/18/22 20:07 83 97 06/18/22 20:06 87 115/80 06/18/22 20:02 89 97 06/18/22 19:57 84 98 06/18/22 19:52 85 97 06/18/22 19:50 85 136/88 06/18/22 19:47 82 97 06/18/22 19:42 81 98 06/18/22 19:37 81 150/75 H 98 06/18/22 19:32 83 97 06/18/22 19:27 94 H 98 06/18/22 19:22 93 H 98 06/18/22 19:21 101 H 121/85 06/18/22 19:17 97 H 98 06/18/22 19:12 80 99 06/18/22 19:07 86 99 06/18/22 19:05 37.2 C 77 18 142/83 H 06/18/22 19:02 81 99 06/18/22 18:57 88 99 06/18/22 18:52 89 99 06/18/22 18:50 87 137/101 H 06/18/22 18:47 94 H 98 06/18/22 18:42 83 99 06/18/22 18:30 18 06/18/22 18:30 18 06/18/22 18:37 84 100 06/18/22 18:35 75 147/86 H 06/18/22 18:32 73 100 06/18/22 18:27 78 97 06/18/22 18:22 84 98 06/18/22 18:20 91 H 136/88 06/18/22 18:17 76 99 06/18/22 18:12 98 H 98 06/18/22 18:07 85 96 06/18/22 18:05 74 142/89 H 06/18/22 18:02 80 97 06/18/22 15:45 36.9 C 06/18/22 17:45 37.0 C 06/18/22 18:00 18 06/18/22 18:00 18 06/18/22 17:57 75 95 06/18/22 17:52 74 96 06/18/22 17:51 85 139/89 06/18/22 17:47 78 97 06/18/22 17:30 18 06/18/22 17:30 18 06/18/22 17:42 73 96 06/18/22 17:00 18 06/18/22 17:00 18 06/18/22 17:37 74 96 06/18/22 17:35 71 140/87 06/18/22 17:32 75 97 06/18/22 17:27 101 H 96 06/18/22 17:22 83 97 06/18/22 17:21 83 131/89 06/18/22 17:17 88 98 06/18/22 17:12 84 97 06/18/22 17:07 86 98 06/18/22 17:06 76 139/85 06/18/22 17:02 88 98 06/18/22 16:57 79 97 06/18/22 16:52 86 98 06/18/22 16:51 75 140/85 06/18/22 16:47 75 98 06/18/22 16:42 74 99 06/18/22 16:37 78 99 06/18/22 16:35 67 144/84 H 06/18/22 16:30 16 06/18/22 16:30 16 06/18/22 16:32 76 97 06/18/22 16:27 87 97 06/18/22 16:22 79 99 06/18/22 16:21 73 117/71 06/18/22 16:17 90 98 06/18/22 16:12 71 98 06/18/22 16:07 84 114/71 99 06/18/22 16:00 18 06/18/22 16:00 18 06/18/22 16:02 76 98 06/18/22 15:57 78 98 06/18/22 15:52 75 99 06/18/22 15:51 75 121/77 06/18/22 15:47 83 97 06/18/22 15:42 83 98 06/18/22 15:37 73 96 06/18/22 15:35 82 134/84 06/18/22 15:32 81 95 06/18/22 15:27 73 96 06/18/22 15:24 83 94 06/18/22 15:22 76 96 06/18/22 15:20 81 133/85 06/18/22 15:17 94 H 98 06/18/22 15:12 82 96 06/18/22 15:07 85 96 06/18/22 15:05 82 136/87 06/18/22 15:02 81 96 06/18/22 14:57 83 97 06/18/22 14:30 18 06/18/22 14:30 18 06/18/22 14:52 79 96 06/18/22 14:50 82 130/81 06/18/22 14:47 82 96 06/18/22 14:42 78 96 06/18/22 14:37 76 96 06/18/22 14:36 82 132/77 06/18/22 14:32 82 96 06/18/22 14:27 73 97 06/18/22 14:22 98 06/18/22 14:22 78 06/18/22 14:22 73 136/82 06/18/22 14:17 79 98 06/18/22 14:12 79 97 06/18/22 14:00 18 06/18/22 14:00 18 06/18/22 14:07 80 97 06/18/22 14:06 74 129/84 06/18/22 14:02 73 97 06/18/22 13:57 75 98 06/18/22 13:45 18 06/18/22 13:45 36.9 C 18 06/18/22 13:52 73 97 06/18/22 13:50 76 122/70 06/18/22 13:47 89 98 06/18/22 13:42 86 98 06/18/22 13:37 80 98 06/18/22 13:35 88 134/79 06/18/22 13:00 20 06/18/22 13:00 20 06/18/22 13:32 83 97 10/13/22 13:30 18 06/18/22 13:30 18 06/18/22 13:27 87 97 06/18/22 13:22 77 97 06/18/22 13:20 85 138/77 06/18/22 13:17 79 97 06/18/22 13:12 86 97 06/18/22 13:07 80 97 06/18/22 13:05 86 126/75 06/18/22 13:02 83 96 06/18/22 12:57 80 96 06/18/22 12:52 79 97 06/18/22 12:51 77 129/79 06/18/22 12:47 72 97 06/18/22 12:42 81 96 06/18/22 12:37 94 H 97 06/18/22 12:30 18 06/18/22 12:30 18 06/18/22 12:36 86 124/80 06/18/22 12:32 78 97 06/18/22 12:00 18 06/18/22 12:00 36.9 C 18 06/18/22 12:27 73 98 06/18/22 12:22 86 97 06/18/22 12:20 80 132/82 06/18/22 12:17 85 97 06/18/22 12:12 94 H 99 06/18/22 12:07 76 98 06/18/22 12:05 86 133/88 06/18/22 12:02 78 98 06/18/22 11:57 82 96 06/18/22 11:52 82 99 06/18/22 11:50 82 127/86 06/18/22 11:47 79 98 06/18/22 11:42 69 98 06/18/22 11:37 81 118/71 99 06/18/22 11:30 18 06/18/22 11:30 18 06/18/22 11:32 78 97 06/18/22 11:27 81 98 06/18/22 11:22 77 98 06/18/22 11:21 70 117/74 06/18/22 11:17 72 98 06/18/22 11:12 71 98 06/18/22 11:07 71 99 06/18/22 11:05 71 125/80 06/18/22 11:02 78 97 06/18/22 10:57 73 98 06/18/22 10:52 82 97 06/18/22 10:50 82 121/76 06/18/22 10:47 71 99 06/18/22 10:42 70 97 06/18/22 10:37 77 97 06/18/22 10:35 71 124/81 06/18/22 10:30 18 06/18/22 10:30 18 06/18/22 10:32 78 97 06/18/22 10:27 79 97 06/18/22 10:22 88 97 06/18/22 10:21 75 128/84 06/18/22 10:17 76 97 06/18/22 10:12 89 95 06/18/22 10:07 82 96 06/18/22 10:05 81 126/86 06/18/22 10:02 77 98 06/18/22 09:57 80 96 06/18/22 09:52 76 97 06/18/22 09:50 82 130/83 06/18/22 09:47 70 97 06/18/22 09:42 85 97 06/18/22 09:30 18 06/18/22 09:30 18 06/18/22 09:37 77 99 06/18/22 09:35 83 119/84 06/18/22 09:32 84 97 06/18/22 09:27 88 97 06/18/22 09:22 84 98 06/18/22 09:20 85 130/90 06/18/22 09:17 79 99 06/18/22 09:12 97 06/18/22 09:12 88 06/18/22 09:12 86 92 06/18/22 09:07 88 97 06/18/22 09:01 18 06/18/22 09:01 18 06/18/22 09:06 87 128/84 06/18/22 09:02 88 97 06/18/22 08:57 105 H 96 06/18/22 08:52 84 98 06/18/22 08:49 107 H 157/93 H 93 06/18/22 08:47 77 99 06/18/22 08:43 74 125/76 06/18/22 08:42 76 98 06/18/22 08:38 78 130/80 06/18/22 08:37 78 99 10/13/22 08:35 18 06/18/22 08:35 18 06/18/22 08:34 71 126/75 06/18/22 08:32 77 99
[2022-06-18] MEDS ORDERED: AZITHROMYCIN 500 MG in DEXTROSE 5% 250 ML IV STA (20:36)
[2022-06-18] MEDS ORDERED: CITRIC ACID/SODIUM CITRATE 15 ML UDC PO SCH (20:45)
[2022-06-18] MEDS ORDERED: LACTATED RINGER'S 1,000 ML IV SCH ×3 (20:45→22:30)
[2022-06-18] MEDS ORDERED: ceFAZolin 2000MG 2,000 MG/15 ML SYR IV SCH (20:45)
[2022-06-18] MEDS ORDERED: OXYTOCIN 10 UNITS/ML 10ML VIAL ONE (21:11)
[2022-06-18] MEDS ORDERED: ONDANSETRON INJ 2 MG/ML 2 ML VIAL ONE ×2 (21:29→22:02)
[2022-06-18] MEDS ORDERED: MoRPHine SULFATE PF 1 MG/ML 10 ML AMP/VIAL ONE (21:38)
[2022-06-18] MEDS ORDERED: MEASLES, MUMPS & RUBELLA VIRUS VIAL SQ ONE (22:18)
[2022-06-18] MEDS ORDERED: MAGNESIUM HYDROXIDE SUSP 30 ML UDC PO PRN (22:18)
[2022-06-18] MEDS ORDERED: BENZOCAINE 20% AER SPR 82.5 GM CAN EXT PRN (22:18)
[2022-06-18] MEDS ORDERED: HYDROCORTISONE ACETATE 25 MG SUPP PR PRN (22:18)
[2022-06-18] MEDS ORDERED: DIPHTHERIA/TETANUS/PERTUSSIS 0.5 ML SYR/VIAL IM ONE (22:18)
[2022-06-18] MEDS ORDERED: SENNA 8.6 MG TAB PO PRN (22:18)
--- NOTE | 2022-06-18 22:22 | Post Operative Brief Note ---
Immediate Post Op Note v1 Date of Surgery June 18, 2022 Pre & Post Diagnosis Operation Date: 06/18/22 21:45 Pre-Op Diagnosis: 1.Macrosomia 2.Arrest of dilation 3. Active labor Post-Op Diagnosis: Same as pre operative diagnosis I identified the patient and participated in the time-out.: Yes Procedure Operation Date: 06/18/22 21:45 Actual Procedures p Section in LD - Leeanna Youssef MD Surgeon Leeanna Youssef MD Plating Equipment Tender Dr VENTURA Estimated Blood Loss 600 Findings Consistent with Post-Op Diagnosis Drains Soni Catheter Anesthesia Type Labor Epidural Complications none
[2022-06-18] MEDS ORDERED: MoRPHine SULFATE PF 1 MG/ML 10 ML AMP/VIAL INT SPINAL ONE (22:26)
[2022-06-18] MEDS ORDERED: NALOXONE HCL 0.08 MG in SYRINGE 1.8 ML IV PRN (22:26)
[2022-06-18] MEDS ORDERED: LACTATED RINGER'S 500 ML IV PRN (22:26)
[2022-06-18] MEDS ORDERED: MEPERIDINE HCL 25 MG/ML CARP/VIAL IV PRN (22:26)
--- NOTE | 2022-06-18 22:29 | Anesthesiology Progress Note ---
Date of Service June 18, 2022 Anesthesia Post Procedure Vital Signs Vital Signs: Temp Pulse Resp BP Pulse Ox 06/18/22 07:15 98.4 F 20 06/18/22 22:26 100 H 104/64 06/18/22 22:24 101 H 97 06/18/22 21:18 79 140/87 06/18/22 21:17 77 98 06/18/22 21:12 86 98 06/18/22 21:07 92 H 98 06/18/22 21:06 87 138/92 06/18/22 21:02 87 98 06/18/22 20:57 81 98 06/18/22 20:52 86 97 06/18/22 20:51 86 130/73 06/18/22 20:47 82 99 06/18/22 20:26 18 06/18/22 20:26 99.3 F 18 06/18/22 20:42 82 97 06/18/22 20:37 97 06/18/22 20:37 87 06/18/22 20:37 81 148/86 H 06/18/22 20:32 86 97 06/18/22 20:27 80 97 06/18/22 20:22 86 97 06/18/22 20:20 88 124/86 06/18/22 20:17 86 97 06/18/22 20:12 81 98 06/18/22 20:07 83 97 06/18/22 20:06 87 115/80 06/18/22 20:02 89 97 06/18/22 19:57 84 98 06/18/22 19:52 85 97 06/18/22 19:50 85 136/88 06/18/22 19:47 82 97 06/18/22 19:42 81 98 06/18/22 19:37 81 150/75 H 98 06/18/22 19:32 83 97 06/18/22 19:27 94 H 98 06/18/22 19:22 93 H 98 06/18/22 19:21 101 H 121/85 06/18/22 19:17 97 H 98 06/18/22 19:12 80 99 06/18/22 19:07 86 99 06/18/22 19:05 99.0 F 77 18 142/83 H 06/18/22 19:02 81 99 06/18/22 18:57 88 99 06/18/22 18:52 89 99 06/18/22 18:50 87 137/101 H 06/18/22 18:47 94 H 98 06/18/22 18:42 83 99 06/18/22 18:30 18 06/18/22 18:30 18 06/18/22 18:37 84 100 06/18/22 18:35 75 147/86 H 06/18/22 18:32 73 100 06/18/22 18:27 78 97 06/18/22 18:22 84 98 06/18/22 18:20 91 H 136/88 06/18/22 18:17 76 99 06/18/22 18:12 98 H 98 06/18/22 18:07 85 96 06/18/22 18:05 74 142/89 H 06/18/22 18:02 80 97 06/18/22 15:45 98.4 F 06/18/22 17:45 98.6 F 06/18/22 18:00 18 06/18/22 18:00 18 06/18/22 17:57 75 95 06/18/22 17:52 74 96 06/18/22 17:51 85 139/89 06/18/22 17:47 78 97 06/18/22 17:30 18 06/18/22 17:30 18 06/18/22 17:42 73 96 06/18/22 17:00 18 06/18/22 17:00 18 06/18/22 17:37 74 96 06/18/22 17:35 71 140/87 06/18/22 17:32 75 97 06/18/22 17:27 101 H 96 06/18/22 17:22 83 97 06/18/22 17:21 83 131/89 06/18/22 17:17 88 98 06/18/22 17:12 84 97 06/18/22 17:07 86 98 06/18/22 17:06 76 139/85 06/18/22 17:02 88 98 06/18/22 16:57 79 97 06/18/22 16:52 86 98 06/18/22 16:51 75 140/85 06/18/22 16:47 75 98 06/18/22 16:42 74 99 06/18/22 16:37 78 99 06/18/22 16:35 67 144/84 H 06/18/22 16:30 16 06/18/22 16:30 16 06/18/22 16:32 76 97 06/18/22 16:27 87 97 06/18/22 16:22 79 99 06/18/22 16:21 73 117/71 06/18/22 16:17 90 98 06/18/22 16:12 71 98 06/18/22 16:07 84 114/71 99 06/18/22 16:00 18 06/18/22 16:00 18 06/18/22 16:02 76 98 06/18/22 15:57 78 98 06/18/22 15:52 75 99 06/18/22 15:51 75 121/77 06/18/22 15:47 83 97 06/18/22 15:42 83 98 06/18/22 15:37 73 96 06/18/22 15:35 82 134/84 06/18/22 15:32 81 95 06/18/22 15:27 73 96 06/18/22 15:24 83 94 06/18/22 15:22 76 96 06/18/22 15:20 81 133/85 06/18/22 15:17 94 H 98 06/18/22 15:12 82 96 06/18/22 15:07 85 96 06/18/22 15:05 82 136/87 06/18/22 15:02 81 96 06/18/22 14:57 83 97 06/18/22 14:30 18 06/18/22 14:30 18 06/18/22 14:52 79 96 06/18/22 14:50 82 130/81 06/18/22 14:47 82 96 06/18/22 14:42 78 96 06/18/22 14:37 76 96 06/18/22 14:36 82 132/77 06/18/22 14:32 82 96 06/18/22 14:27 73 97 06/18/22 14:22 98 06/18/22 14:22 78 06/18/22 14:22 73 136/82 06/18/22 14:17 79 98 06/18/22 14:12 79 97 06/18/22 14:00 18 06/18/22 14:00 18 06/18/22 14:07 80 97 06/18/22 14:06 74 129/84 06/18/22 14:02 73 97 06/18/22 13:57 75 98 06/18/22 13:45 18 06/18/22 13:45 98.4 F 18 06/18/22 13:52 73 97 06/18/22 13:50 76 122/70 06/18/22 13:47 89 98 06/18/22 13:42 86 98 06/18/22 13:37 80 98 06/18/22 13:35 88 134/79 06/18/22 13:00 20 06/18/22 13:00 20 06/18/22 13:32 83 97 06/18/22 13:30 18 06/18/22 13:30 18 06/18/22 13:27 87 97 06/18/22 13:22 77 97 06/18/22 13:20 85 138/77 06/18/22 13:17 79 97 06/18/22 13:12 86 97 06/18/22 13:07 80 97 06/18/22 13:05 86 126/75 06/18/22 13:02 83 96 06/18/22 12:57 80 96 06/18/22 12:52 79 97 06/18/22 12:51 77 129/79 06/18/22 12:47 72 97 06/18/22 12:42 81 96 06/18/22 12:37 94 H 97 06/18/22 12:30 18 06/18/22 12:30 18 06/18/22 12:36 86 124/80 06/18/22 12:32 78 97 06/18/22 12:00 18 06/18/22 12:00 98.4 F 18 06/18/22 12:27 73 98 06/18/22 12:22 86 97 06/18/22 12:20 80 132/82 06/18/22 12:17 85 97 06/18/22 12:12 94 H 99 06/18/22 12:07 76 98 06/18/22 12:05 86 133/88 06/18/22 12:02 78 98 06/18/22 11:57 82 96 06/18/22 11:52 82 99 06/18/22 11:50 82 127/86 06/18/22 11:47 79 98 06/18/22 11:42 69 98 06/18/22 11:37 81 118/71 99 06/18/22 11:30 18 06/18/22 11:30 18 06/18/22 11:32 78 97 06/18/22 11:27 81 98 06/18/22 11:22 77 98 06/18/22 11:21 70 117/74 06/18/22 11:17 72 98 06/18/22 11:12 71 98 06/18/22 11:07 71 99 06/18/22 11:05 71 125/80 06/18/22 11:02 78 97 06/18/22 10:57 73 98 06/18/22 10:52 82 97 06/18/22 10:50 82 121/76 06/18/22 10:47 71 99 06/18/22 10:42 70 97 06/18/22 10:37 77 97 06/18/22 10:35 71 124/81 06/18/22 10:30 18 06/18/22 10:30 18 06/18/22 10:32 78 97 06/18/22 10:27 79 97 06/18/22 10:22 88 97 06/18/22 10:21 75 128/84 06/18/22 10:17 76 97 06/18/22 10:12 89 95 06/18/22 10:07 82 96 06/18/22 10:05 81 126/86 06/18/22 10:02 77 98 06/18/22 09:57 80 96 06/18/22 09:52 76 97 06/18/22 09:50 82 130/83 06/18/22 09:47 70 97 06/18/22 09:42 85 97 06/18/22 09:30 18 06/18/22 09:30 18 06/18/22 09:37 77 99 06/18/22 09:35 83 119/84 06/18/22 09:32 84 97 06/18/22 09:27 88 97 06/18/22 09:22 84 98 06/18/22 09:20 85 130/90 06/18/22 09:17 79 99 06/18/22 09:12 97 06/18/22 09:12 88 06/18/22 09:12 86 92 06/18/22 09:07 88 97 06/18/22 09:01 18 06/18/22 09:01 18 06/18/22 09:06 87 128/84 06/18/22 09:02 88 97 06/18/22 08:57 105 H 96 06/18/22 08:52 84 98 06/18/22 08:49 107 H 157/93 H 93 06/18/22 08:47 77 99 06/18/22 08:43 74 125/76 06/18/22 08:42 76 98 06/18/22 08:38 78 130/80 06/18/22 08:37 78 99 06/18/22 08:35 18 06/18/22 08:35 18 06/18/22 08:34 71 126/75 06/18/22 08:32 77 99 06/18/22 08:27 74 99 06/18/22 08:28 75 128/87 06/18/22 08:25 74 18 122/76 06/18/22 08:23 75 131/80 06/18/22 08:22 75 98 06/18/22 08:21 82 20 130/80 06/18/22 08:19 82 131/80 06/18/22 08:17 74 20 123/78 98 06/18/22 08:15 81 18 131/81 06/18/22 08:13 74 133/74 06/18/22 08:12 73 18 98 06/18/22 08:11 85 123/69 06/18/22 08:09 74 140/92 06/18/22 08:07 98 06/18/22 08:07 79 06/18/22 08:07 80 138/87 06/18/22 08:05 80 137/89 06/18/22 08:02 80 97 06/18/22 08:03 80 148/88 H 06/18/22 08:01 86 153/93 H 06/18/22 07:59 81 127/77 06/18/22 07:57 90 98 06/18/22 07:52 74 99 06/18/22 07:16 74 139/88 06/18/22 04:34 98.4 F 82 125/76 06/18/22 04:03 75 126/72 06/17/22 23:51 98.8 F 06/17/22 23:52 85 135/83 Pain Intensity Abdomen: Pain Intensity: 0 Transfer of Care Handoff Completed per policy Notes Mental Status: alert / awake / arousable and participated in evaluation Nausea / Vomiting: adequately controlled Pain: adequately controlled Airway Patency, RR, SpO2: stable & adequate BP & HR: stable & adequate Hydration State: stable & adequate Neuraxial Anesthesia: was administered and sensory block is resolving Anesthetic Complications: no major complications apparent and Pt Satisfied with anesthetic care
--- NOTE | 2022-06-18 22:29 | Anesthesia Procedure Note ---
Date of Service June 18, 2022 Anesthesia Post Epidural Note Vital Signs Vital Signs: Temp Pulse Resp BP Pulse Ox 99.3 F 100 H 18 104/64 97 06/18/22 20:26 06/18/22 22:26 06/18/22 20:26 06/18/22 22:26 06/18/22 22:24 Pain Intensity Abdomen: Pain Intensity: 0 Notes Mental Status: alert / awake / arousable and participated in evaluation Nausea / Vomiting: adequately controlled Pain: adequately controlled Airway Patency, RR, SpO2: stable & adequate BP & HR: stable & adequate Hydration State: stable & adequate Neuraxial Anesthesia: was administered and sensory block is resolving Anesthetic Complications: no major complications apparent and Pt Satisfied with anesthetic care Epidural: Removed without complications and With tip intact
[2022-06-18] MEDS ORDERED: NO NARCOTICS OR SEDATIVES SCH (22:30)
[2022-06-18] MEDS ORDERED: DC INTRASPINAL MORPHINE SCH (22:30)
[2022-06-18] MEDS ORDERED: SODIUM CHLORIDE 0.9% 1000ML 1,000 ML IV SCH (22:30)
[2022-06-18] MEDS ORDERED: OXYTOCIN 20 UNITS in LACTATED RINGER'S 1,000 ML IV SCH (22:30)
[2022-06-18] MEDS: KETOROLAC 30 MG/ML VIAL IV PRN (23:59)
[2022-06-19] MEDS: CLINDAMYCIN/D5W 900 MG/50 ML BAG IV SCH ×3 (01:22→17:21)
[2022-06-19] MEDS: ceFAZolin 2000MG 2,000 MG/15 ML SYR IV SCH ×3 (04:56→20:54)
--- NOTE | 2022-06-19 05:04 | Operative Report (OR) ---
DATE OF SURGERY: 06/18/2022. PREOPERATIVE DIAGNOSES: The patient is a 27-year-old G1, P0 at 41 weeks and 4 days of gestation, who presented with early labor, desired trial of vaginal , suspected macrosomia, abnormal glucose testing during , arrest of dilatation in active phase of labor. POSTOPERATIVE DIAGNOSES: The patient is a 27-year-old G1, P0 at 41 weeks and 4 days of gestation, who presented with early labor, desires trial of vaginal , macrosomia, abnormal glucose testing during , arrest of dilatation in active phase of labor. PROCEDURE: Primary low transverse with Pfannenstiel skin incision. SURGEON: Leeanna Youssef MD STEREOTYPE CASTER: Karlene Ferrer MD ESTIMATED BLOOD LOSS: 600 mL. ANESTHESIA: Labor epidural. ANESTHESIOLOGIST: Dr. Ann. COMPLICATIONS: None. FINDINGS: Baby was a viable male infant delivered in cephalic presentation, facing up, occiput posterior at 2141 hours. Apgars were 8/9, weight was 4468 grams. Maternal findings, normal uterus, fallopian tubes, and ovaries. DESCRIPTION OF PROCEDURE: The patient was taken to the operating room where epidural anesthesia was found to be adequate. She was placed in dorsal supine position with a leftward tilt. She was prepared and draped in the usual sterile fashion. A Pfannenstiel skin incision was made and carried through to the underlying layer of fascia with the Bovie. Fascia was incised in the midline and incision was extended laterally with the help of Echeverria scissors and the fascial incision was again dissected off with Echeverria scissors superior and inferiorly. Rectus muscles were in the midline and peritoneum was entered bluntly. Peritoneal incision was extended superiorly and inferiorly with good visualization of the bladder. Bladder blade was inserted. Vesicouterine peritoneum was identified, grasped with pickups, and entered sharply with Metzenbaum scissors. Bladder blade was created digitally and bladder blade was reinserted. Lower uterine segment was incised in transverse fashion. The incision was extended laterally with the help of bandage scissors. Membranes were ruptured and clear fluid was obtained. Baby came across with the baby's face. The head was brought to the incision and delivered without difficulty. There was a nuchal cord around the neck x1, which was reduced. Shoulders were delivered with minimal traction. Mouth and nose were suctioned. Cord was clamped x2 and cut at 1-minute delay. Baby was vigorously moving and crying at that point. Baby was handed off to the waiting pediatric team and placenta was delivered manually as intact and complete. Uterus was exteriorized and cleared of all clots and debris. Uterine incision was repaired with 0 Vicryl in a running locked fashion. Second imbricating layer was placed with another 0 Vicryl in a running locked fashion. Excellent hemostasis was achieved. Cul-de-sac was irrigated with warm normal saline and suctioned. Normal ovaries, fallopian tubes, normal cul-de-sac was seen. Uterus was returned to the abdomen. Pelvis was irrigated with warm normal saline and suctioned. Incision was checked to be hemostatic again. Parietal peritoneum was reapproximated with 3-0 Vicryl in a running fashion. Rectus muscles were reapproximated with the same suture in a running fashion. Excellent hemostasis was achieved. Rectus fascia was reapproximated with 0 Vicryl in a running fashion starting from both corners and meeting in the midline and the subcuticular fat tissue was brought together with 3-0 Vicryl in a running fashion. The skin was closed with jorge. Mom and baby tolerated the procedure well. Sponge, lap, and needle count was correct x3. The patient received 2 g of cefazolin before surgery and 500 mg of azithromycin during surgery. She was taken to recovery room in stable condition. I was and Dr. Ferrer was present during whole procedure. My assistant professor of religion, Dr. Ferrer, was needed for retraction, aid during delivery of infant, and hemostasis control during procedure. Job ID: [id number] [facility]
[2022-06-19] MEDS ORDERED: GENTAMICIN CONSULT ACTIVE PRN (07:26)
[2022-06-19 07:28] LABS: Basophils # (auto) 0.02 K/uL (0-0.2); Basophils % (auto) 0.2 %; Eosinophils # (auto) 0.03 K/uL (0-0.50); Eosinophils % (auto) 0.3 %; Hematocrit (blood only) 34.4 % (34.1-44.9); Hemoglobin 11.8 g/dl (12.0-16.0); Immature Granulocytes # (auto) 0.05 K/uL (0.00-0.02); Immature Granulocytes % (auto) 0.5 %; Lymphocytes % (auto) 10.9 %; Mean Corpuscular Hemoglobin 31.1 pg (25.0-34.0); Mean Corpuscular Hgb Conc 34.3 g/dL (32.0-36.0); Mean Corpuscular Volume 90.8 fL (80.0-100.0); Mean Platelet Volume 10.8 fL (9.4-12.3); Monocytes # (auto) 0.54 K/uL (0.24-0.82); Monocytes % (auto) 5.4 %; Neutrophils # (auto) 8.32 K/uL (1.4-6.5); Neutrophils % (auto) 82.7 %; Platelet Count 131 K/uL (130-400); RDW Coefficient of Variation 13.7 % (11.5-14.5); RDW Standard Deviation 45.1 fL (36.4-46.3); Red Blood Count 3.79 M/uL (3.93-5.22); White Blood Count 10.06 K/ul (4.8-10.8)
[2022-06-19] MEDS: FERROUS SULFATE 325 MG TAB PO SCH (08:06)
[2022-06-19] MEDS: PRENATAL VITAMIN 1 TAB PO SCH (08:06)
[2022-06-19] MEDS: DOCUSATE SODIUM 100 MG CAP PO SCH ×2 (08:06→20:55)
[2022-06-19] MEDS: SIMETHICONE 80 MG CHEW PO SCH ×4 (08:06→20:54)
--- NOTE | 2022-06-19 08:28 | XRay Report ---
XR chest 1V portable HISTORY: 27 years-old Female fever acute fever COMPARISON: Chest radiograph and CTA chest 09/28/2021 TECHNIQUE: AP view of the chest FINDINGS: Cardiomediastinal and hilar silhouettes are within normal limits. There is no pneumothorax, pleural e ffusion, airspace consolidation or overt pulmonary edema. Bones of the chest appear grossly intact. IMPRESSION: No acute process. ACT 112: Negative or not required by law. The above report was generated using voice recognition software. It may contain grammatical, syntax o r spelling errors. Electronically signed by: Niko Monreal M.D. 06/19/2022 8:26 AM
[2022-06-19] MEDS: KETOROLAC 30 MG/ML VIAL IV PRN ×2 (08:30→15:37)
[2022-06-19] MEDS: GENTAMICIN SULFATE 420 MG in DEXTROSE 5% 100 ML IV SCH (08:46)
--- NOTE | 2022-06-19 08:59 | Obstetrical Progress Note ---
Date of Service June 19, 2022 Subjective Ambulation: limited ambulation Voiding: lynn catheter in place Passing Gas:: Yes Diet Tolerance:: regular diet Lochia:: Small Feeding Type:: breast feeding Current Pain Level(1-10): 0 doing well no SOB or difficult breathing Physical Exam Constitutional WD/WN, vitals as above Gastrointestinal (Abdomen) Inspection/Auscultation: abdomen normal to inspection and + abdominal surgical incision Percussion/Palpation: abdomen soft incisio c/d/i Musculoskeletal Extremities: extremities normal to inspection Skin no rashes, warm and dry Neurologic patellar DTR's 2+ bilat, sensation intact Psychiatric A+Ox3, euthymic affect Results & Data ([facility]) Vital Signs (Past 12 Hours) Vital Signs Temp Pulse Pulse Resp BP BP Pulse Ox 06/19/22 03:00 16 96 06/19/22 02:00 16 94 06/19/22 05:31 16 96 06/19/22 05:15 38.2 C H 87 18 119/79 98 06/19/22 05:00 18 97 06/19/22 04:00 18 97 06/19/22 01:30 16 96 06/19/22 01:30 38 C H 93 H 16 121/76 06/18/22 23:25 38.6 C H 16 06/18/22 23:15 16 06/18/22 23:05 16 06/18/22 22:55 16 06/19/22 00:25 16 06/18/22 23:55 16 06/18/22 22:45 16 06/18/22 22:35 16 06/18/22 22:25 37.3 C 16 06/19/22 01:26 88 110/60 06/19/22 01:24 90 95 06/19/22 01:19 84 94 06/19/22 01:14 90 93 06/19/22 01:09 85 94 06/19/22 01:04 103 H 95 06/19/22 00:59 90 95 06/19/22 00:56 107 H 132/70 06/19/22 00:54 102 H 95 06/19/22 00:49 91 H 95 06/19/22 00:44 84 94 06/19/22 00:39 84 94 06/19/22 00:34 86 95 06/19/22 00:29 82 94 06/19/22 00:28 81 94 06/19/22 00:26 83 110/60 06/19/22 00:24 79 95 06/19/22 00:23 93 H 94 06/19/22 00:19 85 95 06/19/22 00:14 83 96 06/19/22 00:09 80 95 06/19/22 00:07 78 94 06/19/22 00:04 83 96 06/18/22 23:59 90 98 06/18/22 23:55 82 138/75 06/18/22 23:54 87 98 06/18/22 23:49 89 97 06/18/22 23:44 87 98 06/18/22 23:39 93 H 99 06/18/22 23:34 81 97 06/18/22 23:29 94 H 98 06/18/22 23:25 38.6 C H 86 16 117/70 06/18/22 23:24 92 H 97 06/18/22 23:19 92 H 98 06/18/22 23:14 104 H 98 06/18/22 23:15 100 H 122/71 06/18/22 23:09 88 99 06/18/22 23:10 89 122/59 L 06/18/22 23:08 78 193/113 H 06/18/22 23:06 111 H 91/48 L 06/18/22 23:04 92 H 99 06/18/22 22:59 85 97 06/18/22 22:55 77 109/58 L 06/18/22 22:54 90 98 06/18/22 22:49 97 H 99 06/18/22 22:48 93 H 111/62 06/18/22 22:46 93 H 93 06/18/22 22:44 91 H 100 06/18/22 22:39 94 H 98 06/18/22 22:34 97 H 98 06/18/22 22:35 92 H 109/65 06/18/22 22:29 93 H 97 06/18/22 22:26 100 H 104/64 06/18/22 22:24 101 H 97 06/18/22 21:18 79 140/87 06/18/22 21:17 77 98 06/18/22 21:12 86 98 06/18/22 21:07 92 H 98 06/18/22 21:06 87 138/92 06/18/22 21:02 87 98 O2 Del Method 06/19/22 03:00 06/19/22 02:00 06/19/22 05:31 06/19/22 05:15 Room Air 06/19/22 05:00 06/19/22 04:00 06/19/22 01:30 06/19/22 01:30 06/18/22 23:25 06/18/22 23:15 06/18/22 23:05 06/18/22 22:55 06/19/22 00:25 06/18/22 23:55 06/18/22 22:45 06/18/22 22:35 06/18/22 22:25 06/19/22 01:26 06/19/22 01:24 06/19/22 01:19 06/19/22 01:14 06/19/22 01:09 06/19/22 01:04 06/19/22 00:59 06/19/22 00:56 06/19/22 00:54 06/19/22 00:49 06/19/22 00:44 06/19/22 00:39 06/19/22 00:34 06/19/22 00:29 06/19/22 00:28 06/19/22 00:26 06/19/22 00:24 06/19/22 00:23 06/19/22 00:19 06/19/22 00:14 06/19/22 00:09 06/19/22 00:07 06/19/22 00:04 06/18/22 23:59 06/18/22 23:55 06/18/22 23:54 06/18/22 23:49 06/18/22 23:44 06/18/22 23:39 06/18/22 23:34 06/18/22 23:29 06/18/22 23:25 06/18/22 23:24 06/18/22 23:19 06/18/22 23:14 06/18/22 23:15 06/18/22 23:09 06/18/22 23:10 06/18/22 23:08 06/18/22 23:06 06/18/22 23:04 06/18/22 22:59 06/18/22 22:55 06/18/22 22:54 06/18/22 22:49 06/18/22 22:48 06/18/22 22:46 06/18/22 22:44 06/18/22 22:39 06/18/22 22:34 06/18/22 22:35 06/18/22 22:29 06/18/22 22:26 06/18/22 22:24 06/18/22 21:18 06/18/22 21:17 06/18/22 21:12 06/18/22 21:07 06/18/22 21:06 06/18/22 21:02 Laboratory Results Laboratory Results - last 72 hr 06/17/22 06/17/22 06/17/22 22:32 22:41 22:41 WBC 7.50 RBC 4.65 Hgb 14.6 Hct 41.9 MCV 90.1 MCH 31.4 MCHC 34.8 RDW Std Deviation 44.3 RDW Coeff of Jorden 13.6 Plt Count 163 MPV 10.9 Immature Gran % (Auto) Neut % (Auto) Lymph % (Auto) Jessamine % (Auto) Eos % (Auto) Baso % (Auto) Neut # (Auto) Lymph # (Auto) Jessamine # (Auto) Eos # (Auto) Baso # (Auto) Immature Gran # (Auto) Sodium Potassium Chloride Carbon Dioxide Anion Gap BUN Creatinine Est Cr Clr Drug Dosing Est GFR ( Amer) Est GFR (Non-Af Amer) BUN/Creatinine Ratio Glucose Calcium Total Bilirubin AST ALT Alkaline Phosphatase Total Protein Albumin Globulin Albumin/Globulin Ratio SARS-CoV-2, RNA, NAAT NEGATIVE Blood Type O Positive Antibody Screen NEGATIVE 06/18/22 06/19/22 09:29 07:16 WBC 10.06 RBC 3.79 L Hgb 11.8 L Hct 34.4 MCV 90.8 MCH 31.1 MCHC 34.3 RDW Std Deviation 45.1 RDW Coeff of Jorden 13.7 Plt Count 131 MPV 10.8 Immature Gran % (Auto) 0.5 Neut % (Auto) 82.7 Lymph % (Auto) 10.9 Jessamine % (Auto) 5.4 Eos % (Auto) 0.3 Baso % (Auto) 0.2 Neut # (Auto) 8.32 H Lymph # (Auto) 1.10 L Jessamine # (Auto) 0.54 Eos # (Auto) 0.03 Baso # (Auto) 0.02 Immature Gran # (Auto) 0.05 H Sodium 138 Potassium 3.9 Chloride 107 Carbon Dioxide 21 Anion Gap 10 BUN 7 Creatinine 0.57 L Est Cr Clr Drug Dosing 153.4 Est GFR ( Amer) 147.2 Est GFR (Non-Af Amer) 127.0 BUN/Creatinine Ratio 12.3 Glucose 80 Calcium 9.0 Total Bilirubin 0.6 AST 16 ALT 8 Alkaline Phosphatase 161 H Total Protein 6.2 Albumin 3.3 L Globulin 2.9 Albumin/Globulin Ratio 1.1 SARS-CoV-2, RNA, NAAT Blood Type Antibody Screen Diagnostic Findings CXR normal
--- NOTE | 2022-06-19 12:16 | Pharmacy Report ---
Pharmacy PK ABX Note - Date of Service June 19, 2022 - Assessment and Plan Assessment 27 year old F receiving gentamicin and clindamycin for treatment of post fever. Day # 1 of antimicrobial therapy. Plan Gentamicin * gentamicin 420 mg IV q24 hours --> gentamicin 5 mg/kg of actual body weight since * check trough if continued > 48 hours Pharmacy will continue to follow and will adjust dose/frequency as necessary. Thank you.
[2022-06-19 12:57] LABS: Appearance Urine Cloudy (Clear); Bacteria Urine Automated Negative (Negative); Blood Urine 1+ (Negative); Color Urine Orange; Epithelial Cell Urine Auto >30 /lpf (0-5); Glucose Urine UA Trace (Negative); Ketones Urine Trace (Negative); Leukocyte Esterase Urine Trace (Negative); Nitrite Urine Positive (Negative); Protein Urine 2+ (Negative); Specific Gravity Urine 1.038 (1.000-1.030); Urobilinogen Urine Negative (Negative); WBC Urine Automated >30 /hpf (0-5); pH Urine 5.5 (4.5-7.5)
[2022-06-19 13:01] LABS: Bilirubin Urine 1+ (Negative)
[2022-06-19 13:21] LABS: Cast Urine Automated >30 /lpf (0-5); Granular Casts Urine 20-30 /lpf (0)
[2022-06-19] MEDS ORDERED: LACTATED RINGER'S 1,000 ML IV ONE (14:44)
[2022-06-19] MEDS ORDERED: diphenhydrAMINE 50 MG/ML VIAL IV PRN (16:26)
[2022-06-19] MEDS ORDERED: KETOROLAC 30 MG/ML VIAL IV PRN (16:26)
[2022-06-19] MEDS ORDERED: PROMETHAZINE HCL 25 MG in SODIUM CHLORIDE 0.9% 50 ML IV PRN (16:26)
[2022-06-19] MEDS ORDERED: MEPERIDINE HCL 50 MG/ML CARP IV PRN (16:26)
[2022-06-19] MEDS ORDERED: diphenhydrAMINE Capsule 25 MG CAP PO PRN (16:26)
[2022-06-19] MEDS ORDERED: ONDANSETRON INJ 2 MG/ML 2 ML VIAL IV PRN (16:26)
[2022-06-19] MEDS ORDERED: bisacodyL 5 MG TABEC PO SCH (20:00)
[2022-06-19] MEDS: oxyCODONE/ACETAMINOPHEN 5mg/325mg TAB PO PRN (21:29)
[2022-06-19] MEDS: IBUPROFEN 600 MG TAB PO PRN (21:30)
[2022-06-20] MEDS: CLINDAMYCIN/D5W 900 MG/50 ML BAG IV SCH ×3 (01:29→16:47)
[2022-06-20] MEDS: oxyCODONE/ACETAMINOPHEN 5mg/325mg TAB PO PRN ×5 (02:16→22:38)
[2022-06-20] MEDS: ceFAZolin 2000MG 2,000 MG/15 ML SYR IV SCH ×3 (05:42→20:55)
[2022-06-20 06:21] LABS: Hematocrit (blood only) 31.7 % (34.1-44.9); Hemoglobin 11.1 g/dl (12.0-16.0)
[2022-06-20 07:21] LABS: Creatinine Clr Calc Pharmacy 118.2 ml/min; Est GFR (African American) 128.7 ml/min
[2022-06-20] MEDS: SIMETHICONE 80 MG CHEW PO SCH ×4 (08:54→20:57)
[2022-06-20] MEDS: FERROUS SULFATE 325 MG TAB PO SCH (08:58)
[2022-06-20] MEDS: PRENATAL VITAMIN 1 TAB PO SCH (08:58)
[2022-06-20] MEDS: DOCUSATE SODIUM 100 MG CAP PO SCH ×2 (08:58→20:58)
[2022-06-20] MEDS: IBUPROFEN 600 MG TAB PO PRN ×4 (08:59→22:37)
[2022-06-20] MEDS: GENTAMICIN SULFATE 420 MG in DEXTROSE 5% 100 ML IV SCH (10:11)
--- NOTE | 2022-06-20 12:13 | Obstetrical Progress Note ---
Date of Service June 20, 2022 Assessment & Plan Admission and Anticipated Discharge Date Admission Date: June 17, 2022 Subjective Patient is seen and examined. She feels well, no complaints. Pain is under control with oral meds. Ambulating without dizziness Voiding without difficulty Tolerating regular diet with out N&V Flatus + BM neg Bleeding is minimal No fever/ chills/ CP/ SOB/ N&V/ Leg pain Breast feeding without problems Vital Signs Temp Pulse Resp BP Pulse Ox O2 Del Method 06/20/22 08:30 36.5 C 74 16 118/78 06/19/22 23:15 37.2 C 88 18 95/62 L 06/19/22 20:36 37.6 C H 111 H 18 110/74 Room Air 06/19/22 15:15 Room Air 06/19/22 15:15 38 C H 99 H 16 105/70 99 Room Air 06/19/22 17:00 16 97 06/19/22 16:00 16 95 06/19/22 15:00 16 99 06/19/22 16:48 37.5 C 06/19/22 12:45 37.5 C 19 124/88 Room Air 06/19/22 14:00 19 99 06/19/22 13:00 17 100 Intake and Output 06/19/22 06/20/22 06/20/22 22:59 06:59 14:59 Intake Total 1050 / 2262.5 50 / 2262.5 160.5 / 160.5 Output Total 2059 / 2324 Balance -1010 / -62.5 50 / -62.5 160.5 / 160.5 Intake: IV 1050 / 2262.5 50 / 2262.5 160.5 / 160.5 Clindamycin/D5w 900 mg In 50 ml 50 / 150 50 / 150 50 / 50 @ 100 mls/hr IV Q8H [facility] Rx#: [id number] Gentamicin Sulfate 420 mg In 110.5 / 110.5 Dextrose 5% 100 ml @ 100 mls/hr IV Q24H [facility] Rx#:[id number] Lactated Ringer's 1,000 ml @ 1000 / 1000 125 mls/hr IV .Q8H [facility] Rx#: [id number] Output: Urine 500 / 500 Urine Amount (Catheter) 1560 / 1825 Soni/Indwelling 1560 / 1825 Lab Results 06/17/22 06/17/22 06/17/22 Range/Units 22:32 22:41 22:41 WBC 7.50 (4.8-10.8) K/ul RBC 4.65 (3.93-5.22) M/uL Hgb 14.6 (12.0-16.0) g/dl Hct 41.9 (34.1-44.9) % MCV 90.1 (80.0-100.0) fL MCH 31.4 (25.0-34.0) pg MCHC 34.8 (32.0-36.0) g/dL RDW Std Deviation 44.3 (36.4-46.3) fL RDW Coeff of Jorden 13.6 (11.5-14.5) % Plt Count 163 (130-400) K/uL MPV 10.9 (9.4-12.3) fL Immature Gran % (Auto) % Neut % (Auto) % Lymph % (Auto) % [place] % (Auto) % Eos % (Auto) % Baso % (Auto) % Neut # (Auto) (1.4-6.5) K/uL Lymph # (Auto) (1.2-3.4) K/uL [place] # (Auto) (0.24-0.82) K/uL Eos # (Auto) (0-0.50) K/uL Baso # (Auto) (0-0.2) K/uL Immature Gran # (Auto) (0.00-0.02) K/uL Sodium (136-145) mmol/L Potassium (3.5-5.1) mmol/L Chloride (98-107) mmol/L Carbon Dioxide (21-32) mmol/L Anion Gap (3-11) BUN (6-23) mg/dl Creatinine (0.6-1.2) mg/dl Est Cr Clr Drug Dosing ml/min Est GFR ( Amer) ml/min Est GFR (Non-Af Amer) ml/min BUN/Creatinine Ratio (10-20) Glucose (70-99(Fasting)) mg/dl Calcium (8.5-10.1) mg/dl Total Bilirubin (0.2-1.0) mg/dl AST (13-39) U/L ALT (7-52) U/L Alkaline Phosphatase (34-104) U/L Total Protein (6.0-8.3) gm/dl Albumin (3.4-5.0) gm/dl Globulin (2.5-4.0) gm/dl Albumin/Globulin Ratio (0.9-2) Urine Color Urine Appearance (Clear) Urine pH (4.5-7.5) Ur Specific [place] (1.000-1.030) Urine Protein (Negative) Urine Glucose (UA) (Negative) Urine Ketones (Negative) Urine Blood (Negative) Urine Nitrite (Negative) Urine Bilirubin (Negative) Urine Urobilinogen (Negative) Ur Leukocyte Esterase (Negative) Urine WBC (Auto) (0-5) /hpf Urine RBC (Auto) (0-4) /hpf U Hyaline Cast (Auto) (0-5) /lpf U Epithel Cells (Auto) (0-5) /lpf Urine Bacteria (Auto) (Negative) Granular Casts (0) /lpf WBC Casts (0) /lpf SARS-CoV-2, RNA, NAAT NEGATIVE (NEGATIVE) Blood Type O Positive Antibody Screen NEGATIVE 06/18/22 06/19/22 06/19/22 Range/Units 09:29 07:16 12:40 WBC 10.06 (4.8-10.8) K/ul RBC 3.79 L (3.93-5.22) M/uL Hgb 11.8 L (12.0-16.0) g/dl Hct 34.4 (34.1-44.9) % MCV 90.8 (80.0-100.0) fL MCH 31.1 (25.0-34.0) pg MCHC 34.3 (32.0-36.0) g/dL RDW Std Deviation 45.1 (36.4-46.3) fL RDW Coeff of Jorden 13.7 (11.5-14.5) % Plt Count 131 (130-400) K/uL MPV 10.8 (9.4-12.3) fL Immature Gran % (Auto) 0.5 % Neut % (Auto) 82.7 % Lymph % (Auto) 10.9 % [place] % (Auto) 5.4 % Eos % (Auto) 0.3 % Baso % (Auto) 0.2 % Neut # (Auto) 8.32 H (1.4-6.5) K/uL Lymph # (Auto) 1.10 L (1.2-3.4) K/uL [place] # (Auto) 0.54 (0.24-0.82) K/uL Eos # (Auto) 0.03 (0-0.50) K/uL Baso # (Auto) 0.02 (0-0.2) K/uL Immature Gran # (Auto) 0.05 H (0.00-0.02) K/uL Sodium 138 (136-145) mmol/L Potassium 3.9 (3.5-5.1) mmol/L Chloride 107 (98-107) mmol/L Carbon Dioxide 21 (21-32) mmol/L Anion Gap 10 (3-11) BUN 7 (6-23) mg/dl Creatinine 0.57 L (0.6-1.2) mg/dl Est Cr Clr Drug Dosing 153.4 ml/min Est GFR ( Amer) 147.2 ml/min Est GFR (Non-Af Amer) 127.0 ml/min BUN/Creatinine Ratio 12.3 (10-20) Glucose 80 (70-99(Fasting)) mg/dl Calcium 9.0 (8.5-10.1) mg/dl Total Bilirubin 0.6 (0.2-1.0) mg/dl AST 16 (13-39) U/L ALT 8 (7-52) U/L Alkaline Phosphatase 161 H (34-104) U/L Total Protein 6.2 (6.0-8.3) gm/dl Albumin 3.3 L (3.4-5.0) gm/dl Globulin 2.9 (2.5-4.0) gm/dl Albumin/Globulin Ratio 1.1 (0.9-2) Urine Color [place] Urine Appearance Cloudy A (Clear) Urine pH 5.5 (4.5-7.5) Ur Specific [place] 1.038 H (1.000-1.030) Urine Protein 2+ H (Negative) Urine Glucose (UA) Trace H (Negative) Urine Ketones Trace H (Negative) Urine Blood 1+ H (Negative) Urine Nitrite Positive A (Negative) Urine Bilirubin 1+ H (Negative) Urine Urobilinogen Negative (Negative) Ur Leukocyte Esterase Trace H (Negative) Urine WBC (Auto) >30 H (0-5) /hpf Urine RBC (Auto) 10-30 H (0-4) /hpf U Hyaline Cast (Auto) >30 H (0-5) /lpf U Epithel Cells (Auto) >30 H (0-5) /lpf Urine Bacteria (Auto) Negative (Negative) Granular Casts 20-30 H (0) /lpf WBC Casts 5-10 H (0) /lpf SARS-CoV-2, RNA, NAAT (NEGATIVE) Blood Type Antibody Screen 06/20/22 06/20/22 Range/Units 06:12 06:12 WBC (4.8-10.8) K/ul RBC (3.93-5.22) M/uL Hgb 11.1 L (12.0-16.0) g/dl Hct 31.7 L (34.1-44.9) % MCV (80.0-100.0) fL MCH (25.0-34.0) pg MCHC (32.0-36.0) g/dL RDW Std Deviation (36.4-46.3) fL RDW Coeff of Jorden (11.5-14.5) % Plt Count (130-400) K/uL MPV (9.4-12.3) fL Immature Gran % (Auto) % Neut % (Auto) % Lymph % (Auto) % [place] % (Auto) % Eos % (Auto) % Baso % (Auto) % Neut # (Auto) (1.4-6.5) K/uL Lymph # (Auto) (1.2-3.4) K/uL [place] # (Auto) (0.24-0.82) K/uL Eos # (Auto) (0-0.50) K/uL Baso # (Auto) (0-0.2) K/uL Immature Gran # (Auto) (0.00-0.02) K/uL Sodium (136-145) mmol/L Potassium (3.5-5.1) mmol/L Chloride (98-107) mmol/L Carbon Dioxide (21-32) mmol/L Anion Gap (3-11) BUN (6-23) mg/dl Creatinine 0.74 (0.6-1.2) mg/dl Est Cr Clr Drug Dosing 118.2 ml/min Est GFR ( Amer) 128.7 ml/min Est GFR (Non-Af Amer) 111.0 ml/min BUN/Creatinine Ratio (10-20) Glucose (70-99(Fasting)) mg/dl Calcium (8.5-10.1) mg/dl Total Bilirubin (0.2-1.0) mg/dl AST (13-39) U/L ALT (7-52) U/L Alkaline Phosphatase (34-104) U/L Total Protein (6.0-8.3) gm/dl Albumin (3.4-5.0) gm/dl Globulin (2.5-4.0) gm/dl Albumin/Globulin Ratio (0.9-2) Urine Color Urine Appearance (Clear) Urine pH (4.5-7.5) Ur Specific [place] (1.000-1.030) Urine Protein (Negative) Urine Glucose (UA) (Negative) Urine Ketones (Negative) Urine Blood (Negative) Urine Nitrite (Negative) Urine Bilirubin (Negative) Urine Urobilinogen (Negative) Ur Leukocyte Esterase (Negative) Urine WBC (Auto) (0-5) /hpf Urine RBC (Auto) (0-4) /hpf U Hyaline Cast (Auto) (0-5) /lpf U Epithel Cells (Auto) (0-5) /lpf Urine Bacteria (Auto) (Negative) Granular Casts (0) /lpf WBC Casts (0) /lpf SARS-CoV-2, RNA, NAAT (NEGATIVE) Blood Type Antibody Screen PE: General: Alert, orientedx3, NAD CVS: S1S2 RRR Lungs; CTAB Abd: soft, NT, ND, BS+, fundus firm, below Umbilicus Incision: Clean, dry, intact Perineum intact, Lochia rubra minimal Ext; NT, no edema, Homans neg/ neg AP: 27 yo s/p C Section, pod# 2 VSS had postop fevers, Afebrile since yesterday afternoon, clinically doing well On triple AB, blood culture neg for 24 hours, CXR WNL, urine culture pending Continue routine postop care Encourage ambulation, PO intake All questions were answered D/C home tomorrow Results & Data ([facility]) Vital Signs (Past 12 Hours) Vital Signs Temp Pulse Resp BP 06/20/22 08:30 36.5 C 74 16 118/78
[2022-06-20] MEDS ORDERED: bisacodyL 10 MG SUPP PR PRN (22:18)
[2022-06-21] MEDS: CLINDAMYCIN/D5W 900 MG/50 ML BAG IV SCH ×3 (01:22→18:51)
[2022-06-21] MEDS: ceFAZolin 2000MG 2,000 MG/15 ML SYR IV SCH (05:03)
[2022-06-21 05:37] LABS: Creatinine Clr Calc Pharmacy 110.7 ml/min; Est GFR (African American) 118.9 ml/min; Est GFR (Non-African American) 102.6 ml/min
[2022-06-21] MEDS: oxyCODONE/ACETAMINOPHEN 5mg/325mg TAB PO PRN ×3 (06:49→18:11)
[2022-06-21] MEDS: PRENATAL VITAMIN 1 TAB PO SCH (08:10)
[2022-06-21] MEDS: FERROUS SULFATE 325 MG TAB PO SCH (08:10)
[2022-06-21] MEDS: DOCUSATE SODIUM 100 MG CAP PO SCH ×2 (08:10→19:53)
[2022-06-21] MEDS: AMOXICILLIN/CLAVULANATE 875 MG TAB PO SCH ×2 (08:10→18:11)
[2022-06-21] MEDS: SIMETHICONE 80 MG CHEW PO SCH ×4 (08:10→19:54)
[2022-06-21] MEDS ORDERED: Nursing to Pharmacy Communication SCH (08:45)
[2022-06-21] MEDS: IBUPROFEN 600 MG TAB PO PRN ×3 (12:48→23:44)
--- NOTE | 2022-06-21 13:21 | Obstetrical Progress Note ---
Date of Service June 21, 2022 Assessment & Plan Admission and Anticipated Discharge Date Admission Date: June 17, 2022 Subjective Patient is seen and examined. She feels well, no complaints. Pain is under control with oral meds. Ambulating without dizziness She has not walked in hallways yet. Voiding without difficulty Tolerating regular diet with out N&V Flatus + BM neg Bleeding is minimal No fever/ chills/ CP/ SOB/ N&V/ Leg pain Breast and bottle feeding without problems Vital Signs Temp 06/21/22 03:40 36.7 C Vital Signs Temp Pulse Resp BP O2 Del Method 06/21/22 03:40 36.7 C 06/20/22 23:25 36.6 C 80 18 110/72 06/20/22 19:15 36.6 C 82 18 114/75 06/20/22 15:37 36.6 C 89 19 135/81 Room Air Intake and Output 06/20/22 06/21/22 06/21/22 22:59 06:59 14:59 Intake Total 50 / 210.5 Balance 50 / 210.5 Intake: IV 50 / 210.5 Clindamycin/D5w 900 mg In 50 ml 50 / 100 @ 100 mls/hr IV Q8H [facility] Rx#: [id number] Lab Results 06/17/22 06/17/22 06/17/22 Range/Units 22:32 22:41 22:41 WBC 7.50 (4.8-10.8) K/ul RBC 4.65 (3.93-5.22) M/uL Hgb 14.6 (12.0-16.0) g/dl Hct 41.9 (34.1-44.9) % MCV 90.1 (80.0-100.0) fL MCH 31.4 (25.0-34.0) pg MCHC 34.8 (32.0-36.0) g/dL RDW Std Deviation 44.3 (36.4-46.3) fL RDW Coeff of Jorden 13.6 (11.5-14.5) % Plt Count 163 (130-400) K/uL MPV 10.9 (9.4-12.3) fL Immature Gran % (Auto) % Neut % (Auto) % Lymph % (Auto) % [place] % (Auto) % Eos % (Auto) % Baso % (Auto) % Neut # (Auto) (1.4-6.5) K/uL Lymph # (Auto) (1.2-3.4) K/uL [place] # (Auto) (0.24-0.82) K/uL Eos # (Auto) (0-0.50) K/uL Baso # (Auto) (0-0.2) K/uL Immature Gran # (Auto) (0.00-0.02) K/uL Sodium (136-145) mmol/L Potassium (3.5-5.1) mmol/L Chloride (98-107) mmol/L Carbon Dioxide (21-32) mmol/L Anion Gap (3-11) BUN (6-23) mg/dl Creatinine (0.6-1.2) mg/dl Est Cr Clr Drug Dosing ml/min Est GFR ( Amer) ml/min Est GFR (Non-Af Amer) ml/min BUN/Creatinine Ratio (10-20) Glucose (70-99(Fasting)) mg/dl Calcium (8.5-10.1) mg/dl Total Bilirubin (0.2-1.0) mg/dl AST (13-39) U/L ALT (7-52) U/L Alkaline Phosphatase (34-104) U/L Total Protein (6.0-8.3) gm/dl Albumin (3.4-5.0) gm/dl Globulin (2.5-4.0) gm/dl Albumin/Globulin Ratio (0.9-2) Urine Color Urine Appearance (Clear) Urine pH (4.5-7.5) Ur Specific [place] (1.000-1.030) Urine Protein (Negative) Urine Glucose (UA) (Negative) Urine Ketones (Negative) Urine Blood (Negative) Urine Nitrite (Negative) Urine Bilirubin (Negative) Urine Urobilinogen (Negative) Ur Leukocyte Esterase (Negative) Urine WBC (Auto) (0-5) /hpf Urine RBC (Auto) (0-4) /hpf U Hyaline Cast (Auto) (0-5) /lpf U Epithel Cells (Auto) (0-5) /lpf Urine Bacteria (Auto) (Negative) Granular Casts (0) /lpf WBC Casts (0) /lpf SARS-CoV-2, RNA, NAAT NEGATIVE (NEGATIVE) Blood Type O Positive Antibody Screen NEGATIVE 06/18/22 06/19/22 06/19/22 Range/Units 09:29 07:16 12:40 WBC 10.06 (4.8-10.8) K/ul RBC 3.79 L (3.93-5.22) M/uL Hgb 11.8 L (12.0-16.0) g/dl Hct 34.4 (34.1-44.9) % MCV 90.8 (80.0-100.0) fL MCH 31.1 (25.0-34.0) pg MCHC 34.3 (32.0-36.0) g/dL RDW Std Deviation 45.1 (36.4-46.3) fL RDW Coeff of Jorden 13.7 (11.5-14.5) % Plt Count 131 (130-400) K/uL MPV 10.8 (9.4-12.3) fL Immature Gran % (Auto) 0.5 % Neut % (Auto) 82.7 % Lymph % (Auto) 10.9 % [place] % (Auto) 5.4 % Eos % (Auto) 0.3 % Baso % (Auto) 0.2 % Neut # (Auto) 8.32 H (1.4-6.5) K/uL Lymph # (Auto) 1.10 L (1.2-3.4) K/uL [place] # (Auto) 0.54 (0.24-0.82) K/uL Eos # (Auto) 0.03 (0-0.50) K/uL Baso # (Auto) 0.02 (0-0.2) K/uL Immature Gran # (Auto) 0.05 H (0.00-0.02) K/uL Sodium 138 (136-145) mmol/L Potassium 3.9 (3.5-5.1) mmol/L Chloride 107 (98-107) mmol/L Carbon Dioxide 21 (21-32) mmol/L Anion Gap 10 (3-11) BUN 7 (6-23) mg/dl Creatinine 0.57 L (0.6-1.2) mg/dl Est Cr Clr Drug Dosing 153.4 ml/min Est GFR ( Amer) 147.2 ml/min Est GFR (Non-Af Amer) 127.0 ml/min BUN/Creatinine Ratio 12.3 (10-20) Glucose 80 (70-99(Fasting)) mg/dl Calcium 9.0 (8.5-10.1) mg/dl Total Bilirubin 0.6 (0.2-1.0) mg/dl AST 16 (13-39) U/L ALT 8 (7-52) U/L Alkaline Phosphatase 161 H (34-104) U/L Total Protein 6.2 (6.0-8.3) gm/dl Albumin 3.3 L (3.4-5.0) gm/dl Globulin 2.9 (2.5-4.0) gm/dl Albumin/Globulin Ratio 1.1 (0.9-2) Urine Color [place] Urine Appearance Cloudy A (Clear) Urine pH 5.5 (4.5-7.5) Ur Specific [place] 1.038 H (1.000-1.030) Urine Protein 2+ H (Negative) Urine Glucose (UA) Trace H (Negative) Urine Ketones Trace H (Negative) Urine Blood 1+ H (Negative) Urine Nitrite Positive A (Negative) Urine Bilirubin 1+ H (Negative) Urine Urobilinogen Negative (Negative) Ur Leukocyte Esterase Trace H (Negative) Urine WBC (Auto) >30 H (0-5) /hpf Urine RBC (Auto) 10-30 H (0-4) /hpf U Hyaline Cast (Auto) >30 H (0-5) /lpf U Epithel Cells (Auto) >30 H (0-5) /lpf Urine Bacteria (Auto) Negative (Negative) Granular Casts 20-30 H (0) /lpf WBC Casts 5-10 H (0) /lpf SARS-CoV-2, RNA, NAAT (NEGATIVE) Blood Type Antibody Screen 06/20/22 06/20/22 06/21/22 Range/Units 06:12 06:12 05:08 WBC (4.8-10.8) K/ul RBC (3.93-5.22) M/uL Hgb 11.1 L (12.0-16.0) g/dl Hct 31.7 L (34.1-44.9) % MCV (80.0-100.0) fL MCH (25.0-34.0) pg MCHC (32.0-36.0) g/dL RDW Std Deviation (36.4-46.3) fL RDW Coeff of Jorden (11.5-14.5) % Plt Count (130-400) K/uL MPV (9.4-12.3) fL Immature Gran % (Auto) % Neut % (Auto) % Lymph % (Auto) % [place] % (Auto) % Eos % (Auto) % Baso % (Auto) % Neut # (Auto) (1.4-6.5) K/uL Lymph # (Auto) (1.2-3.4) K/uL [place] # (Auto) (0.24-0.82) K/uL Eos # (Auto) (0-0.50) K/uL Baso # (Auto) (0-0.2) K/uL Immature Gran # (Auto) (0.00-0.02) K/uL Sodium (136-145) mmol/L Potassium (3.5-5.1) mmol/L Chloride (98-107) mmol/L Carbon Dioxide (21-32) mmol/L Anion Gap (3-11) BUN (6-23) mg/dl Creatinine 0.74 0.79 (0.6-1.2) mg/dl Est Cr Clr Drug Dosing 118.2 110.7 ml/min Est GFR ( Amer) 128.7 118.9 ml/min Est GFR (Non-Af Amer) 111.0 102.6 ml/min BUN/Creatinine Ratio (10-20) Glucose (70-99(Fasting)) mg/dl Calcium (8.5-10.1) mg/dl Total Bilirubin (0.2-1.0) mg/dl AST (13-39) U/L ALT (7-52) U/L Alkaline Phosphatase (34-104) U/L Total Protein (6.0-8.3) gm/dl Albumin (3.4-5.0) gm/dl Globulin (2.5-4.0) gm/dl Albumin/Globulin Ratio (0.9-2) Urine Color Urine Appearance (Clear) Urine pH (4.5-7.5) Ur Specific [place] (1.000-1.030) Urine Protein (Negative) Urine Glucose (UA) (Negative) Urine Ketones (Negative) Urine Blood (Negative) Urine Nitrite (Negative) Urine Bilirubin (Negative) Urine Urobilinogen (Negative) Ur Leukocyte Esterase (Negative) Urine WBC (Auto) (0-5) /hpf Urine RBC (Auto) (0-4) /hpf U Hyaline Cast (Auto) (0-5) /lpf U Epithel Cells (Auto) (0-5) /lpf Urine Bacteria (Auto) (Negative) Granular Casts (0) /lpf WBC Casts (0) /lpf SARS-CoV-2, RNA, NAAT (NEGATIVE) Blood Type Antibody Screen PE: General: Alert, orientedx3, NAD CVS: S1S2 RRR Lungs; CTAB Abd: soft, NT, ND, BS+, fundus firm, below Umbilicus Incision: Clean, dry, intact Perineum intact, Lochia rubra minimal Ext; NT, 1+/1+ edema, Homans neg/ neg AP: 27 yo s/p C Section, pod# 3 VSS Afebrile doing well Continue routine postop care Encourage ambulation, PO intake All questions were answered Encouraged to ambulate, take MOM for BM and D/C home tonight but she wants to stay another night Results & Data ([facility]) Vital Signs (Past 12 Hours) Vital Signs Temp 06/21/22 03:40 36.7 C
[2022-06-21] MEDS: ACETAMINOPHEN 325 MG TAB PO PRN (23:44)
[2022-06-22] MEDS: IBUPROFEN 600 MG TAB PO PRN ×3 (05:03→12:57)
[2022-06-22] MEDS: ACETAMINOPHEN 325 MG TAB PO PRN (05:03)
[2022-06-22 07:44] LABS: Creatinine Clr Calc Pharmacy 143.4 ml/min; Est GFR (Non-African American) 124.2 ml/min
[2022-06-22] MEDS: DOCUSATE SODIUM 100 MG CAP PO SCH (08:56)
[2022-06-22] MEDS: SIMETHICONE 80 MG CHEW PO SCH ×2 (08:56→12:56)
[2022-06-22] MEDS: PRENATAL VITAMIN 1 TAB PO SCH (08:56)
[2022-06-22] MEDS: FERROUS SULFATE 325 MG TAB PO SCH (08:56)
[2022-06-22] MEDS: AMOXICILLIN/CLAVULANATE 875 MG TAB PO SCH (08:57)
[2022-06-22] MEDS: oxyCODONE/ACETAMINOPHEN 5mg/325mg TAB PO PRN ×2 (08:57→12:56)
--- NOTE | 2022-06-22 10:14 | Obstetrical Progress Note ---
Date of Service June 22, 2022 Subjective Ambulation: ambulating normally Voiding: no voiding problems Passing Gas:: Yes Diet Tolerance:: regular diet Feeding Type:: breast feeding Current Pain Level(1-10): 0 plans for d/c today Physical Exam Constitutional WD/WN, vitals as above Gastrointestinal (Abdomen) Inspection/Auscultation: abdomen normal to inspection and + abdominal surgical incision incision c/d/i Musculoskeletal Extremities: extremities normal to inspection neg Alex's Skin no rashes, warm and dry Neurologic patellar DTR's 2+ bilat, sensation intact Psychiatric A+Ox3, euthymic affect Results & Data ([facility]) Vital Signs (Past 12 Hours) Vital Signs Temp Pulse Resp BP Pulse Ox O2 Del Method 06/22/22 08:40 36.8 C 80 16 123/82 99 Room Air 06/21/22 23:40 36.8 C 82 16 123/78 96 Room Air Laboratory Results 06/17/22 06/17/22 06/17/22 22:32 22:41 22:41 WBC 7.50 RBC 4.65 Hgb 14.6 Hct 41.9 MCV 90.1 MCH 31.4 MCHC 34.8 RDW Std Deviation 44.3 RDW Coeff of Jorden 13.6 Plt Count 163 MPV 10.9 Immature Gran % (Auto) Neut % (Auto) Lymph % (Auto) [place] % (Auto) Eos % (Auto) Baso % (Auto) Neut # (Auto) Lymph # (Auto) [place] # (Auto) Eos # (Auto) Baso # (Auto) Immature Gran # (Auto) Sodium Potassium Chloride Carbon Dioxide Anion Gap BUN Creatinine Est Cr Clr Drug Dosing Est GFR ( Amer) Est GFR (Non-Af Amer) BUN/Creatinine Ratio Glucose Calcium Total Bilirubin AST ALT Alkaline Phosphatase Total Protein Albumin Globulin Albumin/Globulin Ratio Urine Color Urine Appearance Urine pH Ur Specific [place] Urine Protein Urine Glucose (UA) Urine Ketones Urine Blood Urine Nitrite Urine Bilirubin Urine Urobilinogen Ur Leukocyte Esterase Urine WBC (Auto) Urine RBC (Auto) U Hyaline Cast (Auto) U Epithel Cells (Auto) Urine Bacteria (Auto) Granular Casts WBC Casts SARS-CoV-2, RNA, NAAT NEGATIVE Blood Type O Positive Antibody Screen NEGATIVE 06/18/22 06/19/22 06/19/22 09:29 07:16 12:40 WBC 10.06 RBC 3.79 L Hgb 11.8 L Hct 34.4 MCV 90.8 MCH 31.1 MCHC 34.3 RDW Std Deviation 45.1 RDW Coeff of Jorden 13.7 Plt Count 131 MPV 10.8 Immature Gran % (Auto) 0.5 Neut % (Auto) 82.7 Lymph % (Auto) 10.9 [place] % (Auto) 5.4 Eos % (Auto) 0.3 Baso % (Auto) 0.2 Neut # (Auto) 8.32 H Lymph # (Auto) 1.10 L [place] # (Auto) 0.54 Eos # (Auto) 0.03 Baso # (Auto) 0.02 Immature Gran # (Auto) 0.05 H Sodium 138 Potassium 3.9 Chloride 107 Carbon Dioxide 21 Anion Gap 10 BUN 7 Creatinine 0.57 L Est Cr Clr Drug Dosing 153.4 Est GFR ( Amer) 147.2 Est GFR (Non-Af Amer) 127.0 BUN/Creatinine Ratio 12.3 Glucose 80 Calcium 9.0 Total Bilirubin 0.6 AST 16 ALT 8 Alkaline Phosphatase 161 H Total Protein 6.2 Albumin 3.3 L Globulin 2.9 Albumin/Globulin Ratio 1.1 Urine Color [place] Urine Appearance Cloudy A Urine pH 5.5 Ur Specific [place] 1.038 H Urine Protein 2+ H Urine Glucose (UA) Trace H Urine Ketones Trace H Urine Blood 1+ H Urine Nitrite Positive A Urine Bilirubin 1+ H Urine Urobilinogen Negative Ur Leukocyte Esterase Trace H Urine WBC (Auto) >30 H Urine RBC (Auto) 10-30 H U Hyaline Cast (Auto) >30 H U Epithel Cells (Auto) >30 H Urine Bacteria (Auto) Negative Granular Casts 20-30 H WBC Casts 5-10 H SARS-CoV-2, RNA, NAAT Blood Type Antibody Screen 06/20/22 06/20/22 06/21/22 06:12 06:12 05:08 WBC RBC Hgb 11.1 L Hct 31.7 L MCV MCH MCHC RDW Std Deviation RDW Coeff of Jorden Plt Count MPV Immature Gran % (Auto) Neut % (Auto) Lymph % (Auto) [place] % (Auto) Eos % (Auto) Baso % (Auto) Neut # (Auto) Lymph # (Auto) [place] # (Auto) Eos # (Auto) Baso # (Auto) Immature Gran # (Auto) Sodium Potassium Chloride Carbon Dioxide Anion Gap BUN Creatinine 0.74 0.79 Est Cr Clr Drug Dosing 118.2 110.7 Est GFR ( Amer) 128.7 118.9 Est GFR (Non-Af Amer) 111.0 102.6 BUN/Creatinine Ratio Glucose Calcium Total Bilirubin AST ALT Alkaline Phosphatase Total Protein Albumin Globulin Albumin/Globulin Ratio Urine Color Urine Appearance Urine pH Ur Specific [place] Urine Protein Urine Glucose (UA) Urine Ketones Urine Blood Urine Nitrite Urine Bilirubin Urine Urobilinogen Ur Leukocyte Esterase Urine WBC (Auto) Urine RBC (Auto) U Hyaline Cast (Auto) U Epithel Cells (Auto) Urine Bacteria (Auto) Granular Casts WBC Casts SARS-CoV-2, RNA, NAAT Blood Type Antibody Screen 06/22/22 06:42 WBC RBC Hgb Hct MCV MCH MCHC RDW Std Deviation RDW Coeff of Jorden Plt Count MPV Immature Gran % (Auto) Neut % (Auto) Lymph % (Auto) [place] % (Auto) Eos % (Auto) Baso % (Auto) Neut # (Auto) Lymph # (Auto) [place] # (Auto) Eos # (Auto) Baso # (Auto) Immature Gran # (Auto) Sodium Potassium Chloride Carbon Dioxide Anion Gap BUN Creatinine 0.61 Est Cr Clr Drug Dosing 143.4 Est GFR ( Amer) 144.0 Est GFR (Non-Af Amer) 124.2 BUN/Creatinine Ratio Glucose Calcium Total Bilirubin AST ALT Alkaline Phosphatase Total Protein Albumin Globulin Albumin/Globulin Ratio Urine Color Urine Appearance Urine pH Ur Specific [place] Urine Protein Urine Glucose (UA) Urine Ketones Urine Blood Urine Nitrite Urine Bilirubin Urine Urobilinogen Ur Leukocyte Esterase Urine WBC (Auto) Urine RBC (Auto) U Hyaline Cast (Auto) U Epithel Cells (Auto) Urine Bacteria (Auto) Granular Casts WBC Casts SARS-CoV-2, RNA, NAAT Blood Type Antibody Screen
== END 2022-06-22 14:49 | disposition home or self-care (01) | DRG 788 ==
LOC: OPB 21:48 → 4S1 21:50 → 4E2 06-19 01:30

== ENCOUNTER 2024-03-23 10:51 | Inpatient (IN) ==
--- NOTE | 2024-03-08 12:17 | Anesthesiology Consultation ---
Date of Service March 08, 2024 Assessment & Plan (1) Encounter for pre-operative examination: - Per clinical assessment manager on 03/08/24: No known infectious disease contacts, current infectious disease symptoms in past 10 days or COVID positive test result in the past 30 days. 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 History Surgery Operation Date: 03/24/24 07:30 Proposed Procedures p Section (Delivery of Baby Through Abdominal Incision) - Cat Rehman MD Height/Weight Height: 5 ft 2 in Weight: 81.647 kg Allergies Allergy/AdvReac Type Severity Reaction Status Date / Time No Known Allergies Allergy Verified 03/08/24 11:15 Medications Home Medications Medication Instructions Recorded Confirmed Last Taken albuterol sulfate 90 mcg/actuation 2 puff inhalation Q6H PRN Allergy 08/05/23 03/08/24 Unknown aerosol inhaler Symptoms #6.7 grams 21-iron fu-folic acid 1 tab PO UD 08/18/23 03/08/24 11/20/23 [ Complete] inhaler,assist devices,access #1 ea 11/09/23 03/03/24 Unknown beclomethasone dipropionate 40 2 inh inhalation BID #10.6 grams 11/22/23 03/08/24 Unknown mcg/actuation HFA breath activated aerosol (Qvar RediHaler) acetone (urine) test (Ketone Urine #50 ea 02/04/24 03/03/24 Unknown Test strips) blood sugar diagnostic (OneTouch #150 ea 02/04/24 03/03/24 Unknown Verio test strips) blood-glucose meter (OneTouch #1 ea 02/04/24 03/03/24 Unknown Verio Reflect Meter) lancets 33 gauge (OneTouch Delica #150 ea 02/04/24 03/03/24 Unknown Plus Lancet) Past Medical History Medical History Asthma Allergy induced. not using daily inhaler currently, rare prn inhaler use Environmental allergies Gestational diabetes History of COVID-19 (2021) no hosp; resolved Ruptured right tubal ectopic causing hemoperitoneum (2020) hx Past Family History Family History Aunt Ovarian cancer Grandmother Hypertension Diabetes Mother Facial nerve disorder Hematoma of kidney Denies family history of Prostate cancer Myocardial infarction Breast cancer Colorectal cancer Past Surgical History Surgical History S/P section S/P unilateral salpingo-oophorectomy S/P wisdom tooth extraction Social History Smoking Status: Never smoker Do You Dip or Chew Tobacco: No Hx Alcohol Use: No Hx Substance Use: No substance use type: does not use Lab Results Anesthesia Preop Results Results Anesthesia Widget: WBC 8.45 K/ul (4.8-10.8) 01/16/24 Hgb 13.4 g/dl (12.0-16.0) 01/16/24 Hct 40.2 % (37.0-47.0) 01/16/24 Plt 180 K/uL (130-400) 01/16/24 Na 136 mmol/L (136-145) 01/16/24 K 3.5 mmol/L (3.5-5.1) 01/16/24 Cl 106 mmol/L (98-107) 01/16/24 CO2 22 mmol/L (21-32) 01/16/24 BUN 9 mg/dl (6-23) 01/16/24 Creat 0.44 mg/dl (0.6-1.2) L 01/16/24 Glucose Level 95 mg/dl (70-99(Fasting)) 01/16/24 POC Glucose 95 mg/dl (70-99) 01/16/24 TSH 2.324 uIu/ml (0.300-4.500) 01/16/24 Testing Electrocardiogram Date: 01/16/24 Sinus rhythm with sinus arrhythmia, rate 80 bpm Chest X-Ray Date: 01/16/24 *1view* No acute chest disease.
[2024-03-23] MEDS ORDERED: ALBUTEROL HFA 8 GM INHALER INH PRN (11:23)
[2024-03-23] MEDS: LACTATED RINGER'S 1,000 ML IV SCH (11:56)
[2024-03-23] MEDS: FLUTICASONE FUROATE 100MCG 14 PUFFS/INHALER INH SCH (11:57)
[2024-03-23] MEDS ORDERED: NALOXONE HCL 0.4 MG/1 ML VIAL/CARP IV PRN (12:00)
[2024-03-23] MEDS ORDERED: HYDROmorphone INJ 0.5 MG/0.5 ML SYR IV PRN (12:00)
[2024-03-23] MEDS ORDERED: ACETAMINOPHEN 1,000 MG/100 ML VIAL IV PRN (12:00)
[2024-03-23] MEDS ORDERED: METOCLOPRAMIDE HCL 10 MG in SODIUM CHLORIDE 0.9% 50 ML IV PRN (12:00)
[2024-03-23] MEDS ORDERED: ePHEDrine sulfate 50 MG/ML AMP IV PRN (12:00)
[2024-03-23] MEDS ORDERED: DC INTRASPINAL MORPHINE SCH (12:00)
[2024-03-23] MEDS ORDERED: NALBUPHINE HCL 5 MG in SYRINGE 0 ML IV PRN (12:00)
[2024-03-23] MEDS ORDERED: NALOXONE HCL 0.08 MG in SYRINGE 1.8 ML IV PRN (12:00)
[2024-03-23] MEDS ORDERED: DROPERIDOL 5 MG/2 ML VIAL IV PRN (12:00)
[2024-03-23] MEDS ORDERED: NALOXONE HCL 1 MG in SODIUM CHLORIDE 0.9% 1,000 ML IV PRN (12:00)
[2024-03-23] MEDS ORDERED: MoRPHine SULFATE 2 MG/ML CARP IV PRN (12:00)
[2024-03-23] MEDS ORDERED: MEPERIDINE HCL 25 MG/ML CARP/VIAL IV PRN (12:00)
[2024-03-23] MEDS ORDERED: LACTATED RINGER'S 500 ML IV PRN (12:00)
[2024-03-23] MEDS ORDERED: PROMETHAZINE HCL 6.25 MG in SODIUM CHLORIDE 0.9% 50 ML IV PRN (12:00)
[2024-03-23] MEDS ORDERED: ONDANSETRON INJ 2 MG/ML 2 ML VIAL IV PRN (12:00)
[2024-03-23] MEDS ORDERED: diphenhydrAMINE 50 MG/ML VIAL IV PRN (12:00)
[2024-03-23] MEDS ORDERED: NO NARCOTICS OR SEDATIVES SCH (12:00)
[2024-03-23] MEDS ORDERED: SODIUM CHLORIDE 0.9% 1,000 ML IV SCH (12:00)
[2024-03-23 12:05] LABS: Basophils # (auto) 0.04 K/uL (0.00-0.20); Basophils % (auto) 0.6 %; Eosinophils % (auto) 1.4 %; Hematocrit (blood only) 40.7 % (37.0-47.0); Hemoglobin 13.5 g/dl (12.0-16.0); Immature Granulocytes # (auto) 0.18 K/uL (0.01-0.20); Immature Granulocytes % (auto) 2.5 %; Lymphocytes # (auto) 1.24 K/uL (1.20-3.40); Lymphocytes % (auto) 17.5 %; Mean Corpuscular Hemoglobin 30.5 pg (25.0-34.0); Mean Corpuscular Hgb Conc 33.2 g/dL (32.0-36.0); Mean Corpuscular Volume 91.9 fL (80.0-100.0); Mean Platelet Volume 10.4 fL (9.4-12.4); Monocytes # (auto) 0.61 K/uL (0.11-0.59); Monocytes % (auto) 8.6 %; Neutrophils % (auto) 69.4 %; Platelet Count 147 K/uL (130-400); RDW Coefficient of Variation 14.2 % (11.5-14.5); RDW Standard Deviation 47.8 fL (36.4-46.3); Red Blood Count 4.43 M/uL (4.20-5.40); White Blood Count 7.07 K/ul (4.8-10.8)
--- NOTE | 2024-03-23 12:18 | History & Physical Report ---
Date of Service March 23, 2024 Assessment & Plan (1) Previous delivery affecting , antepartum: Plan: Intrauterine at 39-6/7 weeks with prior section now in early labor as confirmed by cervical dilation change. Patient requesting repeat section. The procedure and its risks were reviewed with the patient and all her questions were answered to her satisfaction. She had eaten a full breakfast at 9 AM this morning, as she is still in early labor, we will delay the section until approximately 1 PM today. Admission and Anticipated Discharge Date Admission Date: March 23, 2024 History of Present Illness Primary Care Provider: Byron العلي DO Patient is a 28-year-old 3 para 1-0-1-1 female EDC of 03/24/2024 who presents at 39-6/7 weeks with regular contractions starting yesterday. She is scheduled for repeat section tomorrow. Her prior section was done because of failure to progress. The contractions have become more painful and she was noted to have a change in cervical exam from 2 cm to 4 cm dilated. As a result, we will proceed with section today. had also been complicated by diet-controlled GDM. testing was reassuring. There was dilation of the renal pelvis noted on her growth scans but this is remained in the mild range. GBS is negative Allergies Allergy/AdvReac Type Severity Reaction Status Date / Time No Known Allergies Allergy Verified 03/23/24 09:40 Home Medications Medication Instructions Recorded Confirmed Type albuterol sulfate 90 mcg/actuation 2 puff inhalation Q6H PRN Allergy 08/05/23 03/23/24 Rx aerosol inhaler Symptoms #6.7 grams inhaler,assist devices,access #1 ea 11/09/23 03/23/24 Rx beclomethasone dipropionate 40 2 inh inhalation BID #10.6 grams 11/22/23 03/23/24 Rx mcg/actuation HFA breath activated aerosol (Qvar RediHaler) acetone (urine) test (Ketone Urine #50 ea 02/04/24 03/23/24 Rx Test strips) blood sugar diagnostic (Ticketbuduch #150 ea 02/04/24 03/23/24 Rx Verio test strips) blood-glucose meter (OneTouch #1 ea 02/04/24 03/23/24 Rx Verio Reflect Meter) lancets 33 gauge (OneToAdaptiveBlue DelStream5 #150 ea 02/04/24 03/23/24 Rx Plus Lancet) vit no.95-ferrous 1 tab PO DAILY 03/23/24 03/23/24 History fumarate 28 mg-folic acid 800 mcg tablet () Patient History Medical History Asthma Allergy induced. not using daily inhaler currently, rare prn inhaler use Environmental allergies Gestational diabetes History of COVID-19 (2021) no hosp; resolved Ruptured right tubal ectopic causing hemoperitoneum (2020) hx Surgical History S/P section S/P unilateral salpingo-oophorectomy S/P wisdom tooth extraction Family History Aunt Ovarian cancer Grandmother Hypertension Diabetes Mother Facial nerve disorder Hematoma of kidney Denies family history of Prostate cancer Myocardial infarction Breast cancer Colorectal cancer Social History Smoking Status: Never smoker Second Hand Exposure: No; Do You Dip or Chew Tobacco: No; Tobacco Cessation Education Requested by Patient: No Hx Alcohol Use: No Hx Substance Use: No Preferred Language: Chinese Communication Ability: Effective Visual Impairment: No Limitations Hearing Ability: Normal Linen Sorter Required: No Beliefs That Will Affect Care: None marital status: marital status details: Shannan Rothman (28) [phone] Current Living Situation: Spouse Current Living Situation Comment: lives with spouse, child current occupational status: unemployed 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 Other Information That Helps Us Care for You: No Feels Safe at Home: Yes Safety Concerns: Feels Safe At This Time Childhood Exposure to Second-Hand Smoke: Yes Diet: regular Dental Care, Regularly: Yes Physical Activity Frequency: 3-4 Times per Week Seatbelt Use: always Sunscreen Use: Yes Do you think of yourself as: straight/heterosexual Gender Identity: Female Assistive Devices: None Review of Systems All systems reviewed & are unremarkable except as noted in HPI & below Physical Exam Constitutional: WD/WN, vitals as above Gastrointestinal (Abdomen): well healed low transverse scar Psychiatric: A+Ox3, euthymic affect Genitourinary: OB Exam Abdomen: + fundal height (term), + vertex and + irregular contractions Manual OB Exam: + cervical dilation 4 cm, + cervical effacement 80% and + station -2 Results & Data Vital Signs (Past 12 Hours) Vital Signs Temp Pulse Resp BP 03/23/24 11:01 98.8 F 79 20 121/72 Coding Level of Care Code 51295 INT INP/OBS CARE 1/40MIN Diagnoses Previous delivery affecting , antepartum O34.219
[2024-03-23] MEDS ORDERED: MoRPHine SULFATE PF 1 MG/ML 10 ML AMP/VIAL ONE (13:04)
[2024-03-23] MEDS: CITRIC ACID/SODIUM CITRATE 15 ML UDC PO STA (13:30)
[2024-03-23] MEDS: ceFAZolin 2000MG 2,000 MG/15 ML SYR IV SCH (13:32)
[2024-03-23] MEDS: ceFAZolin 2000MG 2,000 MG/15 ML SYR IV STA (13:32)
[2024-03-23] MEDS: CITRIC ACID/SODIUM CITRATE 15 ML UDC ONE (13:43)
[2024-03-23] MEDS: MoRPHine SULFATE PF 1 MG/ML 10 ML AMP/VIAL INT SPINAL ONE (13:58)
[2024-03-23] MEDS ORDERED: fentaNYL citrate PF 100 MCG/2 ML VIAL ONE (14:14)
[2024-03-23] MEDS ORDERED: PHENYLEPHRINE 100MCG/ML 10ML SYR IV ONE (14:15)
[2024-03-23] MEDS ORDERED: ONDANSETRON INJ 2 MG/ML 2 ML VIAL ONE (14:15)
--- NOTE | 2024-03-23 15:06 | Post Operative Brief Note ---
Immediate Post Op Note Date of Surgery March 23, 2024 Pre & Post Diagnosis Operation Date: 03/24/24 07:30 PRe-OP DX- IUP at term in labor prior LTCS desires repeat LTCS Post-OP DX- same I identified the patient and participated in the time-out.: Yes Procedure Operation Date: 03/24/24 07:30 repeat low transverse section Surgeon Evelin Zhong MD, FACOG Sports Equipment Racker Ivette Alberto RN Quantitative Blood Loss (QBL) 466 Findings Consistent with Post-Op Diagnosis gravid uterus ovaries grossly normal bilaterally- ;eft fallopian tube normal right fallopian tube with partial salpingectomy Specimens Specimen Description: A: cord blood B: placenta-hold Drains Lynn Catheter (inserted without difficulty following spinal. lynn draining clear yellow urine and output to be monitored by anesthesia intraoperatively) Anesthesia Type Spinal Complications none Disposition Accompanied Patient To Recovery: Yes
[2024-03-23] MEDS ORDERED: HYDROCORTISONE ACETATE 25 MG SUPP PR PRN (15:11)
[2024-03-23] MEDS ORDERED: ACETAMINOPHEN 325 MG TAB PO PRN (15:11)
[2024-03-23] MEDS ORDERED: MAGNESIUM HYDROXIDE SUSP 30 ML UDC PO PRN (15:11)
[2024-03-23] MEDS ORDERED: BENZOCAINE 20% SPRY 85 APPLN/85 GM CAN EXT PRN (15:11)
[2024-03-23] MEDS ORDERED: LACTATED RINGER'S 1,000 ML IV SCH (15:15)
[2024-03-23] MEDS: DIPHTHER/TETAN/PERTUS Vaccine (Tdap, Adol/Adult) 0.5mL IM ONE (15:45)
[2024-03-23] MEDS: OXYTOCIN 20 UNITS/LR 1,002 ML IV SCH (15:48)
--- NOTE | 2024-03-23 15:53 | Operative Report ---
Post Operative Report Pre & Post Diagnosis Operation Date: 03/24/24 07:30 Pre-OP DX- IUP at term in labor prior LTCS requests repeat LTCS Post-OP DX- same plus delivery of a viable male infant I identified the patient and participated in the time-out.: Yes Procedure Operation Date: 03/24/24 07:30 repeat low transverse section Surgeon Evelin Zhong MD, FACOG Sales Operations Director Ivette Alberto RN Quantitative Blood Loss (QBL) 466 Findings Consistent with Post-Op Diagnosis Uterus is gravid and consistent with a term in size. Bilateral ovaries appear to be grossly normal. The left fallopian tube is intact and normal. The right fallopian tube has been resected from the cornua to the mid portion of the tube. Specimens Placenta to hold Drains Soni catheter to straight drainage. Clear urine at the end of the case. Anesthesia Type Spinal Complications none Disposition Accompanied Patient To Recovery: Yes Disposition: L&D Indications Patient is a 28-year-old 3 para 1-0-1-1 female EDC 03/24/2024 who presented in labor the day prior to her scheduled repeat section. She made cervical private branch exchange installer several hours and therefore we will proceed with repeat section now. Description of Procedure After the patient received adequate subarachnoid block she was prepped and draped in usual sterile fashion. A low transverse incision was made through her prior scar and carried to the fascia with the same scalpel. The fascial incision was then extended with Echeverria scissors and the edges were grasped with Adam clamps and the underlying rectus muscles bluntly sharply dissected off of the overlying fascia. The rectus muscles were divided on the midline with a hemostat. The underlying peritoneum was elevated and entered sharply. The rest of the rectus muscle were then divided with blunt and sharp dissection. The bladder was then taken down off of the anterior surface of the uterus and placed behind the bladder blade. The uterus was entered with a scalpel. The incision was then extended transversely by stretching both cephalad and caudad directions. Membranes were ruptured for clear fluid. The infant was delivered from the vertex presentation with moderate fundal pressure. The male infant was vigorous crying and moving all 4 limbs upon delivery. The cord was then clamped and cut and handed off to Dr. Kumar and nursery staff in attendance at the delivery. After cord blood was obtained, the placenta was manually extracted. The uterus was then exteriorized to cover the clean lap sponge. Uterine cavity was explored and some retained membranes were removed. The uterus was then closed in 2 layers in a running locking imbricating fashion with 0 Monocryl. Bleeding on the right side of the incision was secured with a [id number] stitch of the same suture. At this point hemostasis appeared to be excellent. The posterior cul-de-sac was suctioned for small amount of blood. After examining the uterine incision once more the uterus was placed back inside the abdominal cavity. There continue be some bleeding from the right edge of the incision. A second [id number] stitch was placed and down hemostasis was noted to be excellent. The gutters were explored and found to be free of any clot or fluid. The rectus muscles were then brought together on the midline with individual stitches of 0 Monocryl. The fascia was closed in running fashion with 0 Vicryl. After irrigating the subcutaneous layer, and excising the prior keloid scar with a scalpel, the skin edges were reapproximated with a subcuticular stitch of 4-0 Vicryl. Patient tolerated the procedure well and was stable upon arrival in recovery. I attest to the content of the Intraoperative Record and any orders documented therein. Any exceptions are noted below. OB Procedure Charges 61109
--- NOTE | 2024-03-23 15:54 | Anesthesiology Progress Note ---
Date of Service March 23, 2024 Anesthesia Post Procedure Vital Signs Vital Signs: Temp Pulse Resp BP Pulse Ox 03/23/24 15:51 95 03/23/24 15:51 70 03/23/24 15:51 75 117/77 03/23/24 15:50 18 03/23/24 15:46 68 95 03/23/24 15:44 73 94 03/23/24 15:41 80 121/73 97 03/23/24 15:40 20 03/23/24 15:39 75 94 03/23/24 15:36 75 98 03/23/24 15:31 72 117/71 95 03/23/24 15:30 18 03/23/24 15:26 81 97 03/23/24 15:21 75 116/66 96 03/23/24 15:20 18 03/23/24 15:19 73 94 03/23/24 15:16 83 97 03/23/24 15:11 95 03/23/24 15:11 76 03/23/24 15:11 74 113/63 03/23/24 15:10 36.5 C 18 03/23/24 15:09 88 87 L 03/23/24 12:50 84 121/70 03/23/24 11:01 37.1 C 79 20 121/72 Transfer of Care Handoff Completed per policy Notes Mental Status: alert / awake / arousable and participated in evaluation Nausea / Vomiting: adequately controlled Pain: adequately controlled Airway Patency, RR, SpO2: stable & adequate BP & HR: stable & adequate Hydration State: stable & adequate Neuraxial Anesthesia: was administered and sensory block is resolving Anesthetic Complications: no major complications apparent and Pt Satisfied with anesthetic care
[2024-03-23] MEDS: SIMETHICONE 80 MG CHEW PO SCH (18:24)
[2024-03-23] MEDS: KETOROLAC 30 MG/ML VIAL IV PRN (19:22)
[2024-03-23] MEDS: DOCUSATE SODIUM 100 MG CAP PO SCH (20:47)
[2024-03-24] MEDS ORDERED: CITRIC ACID/SODIUM CITRATE 15 ML UDC PO SCH (06:00)
[2024-03-24] MEDS ORDERED: ceFAZolin 2000MG 2,000 MG/15 ML SYR IV SCH (06:00)
[2024-03-24] MEDS ORDERED: KETOROLAC 30 MG/ML VIAL IV PRN (06:01)
[2024-03-24] MEDS ORDERED: MEPERIDINE HCL 50 MG/ML CARP IV PRN (06:01)
[2024-03-24] MEDS ORDERED: PROMETHAZINE HCL 25 MG in SODIUM CHLORIDE 0.9% 50 ML IV PRN (06:01)
[2024-03-24] MEDS ORDERED: ONDANSETRON INJ 2 MG/ML 2 ML VIAL IV PRN (06:01)
[2024-03-24] MEDS ORDERED: diphenhydrAMINE 50 MG/ML VIAL IV PRN (06:01)
[2024-03-24] MEDS ORDERED: diphenhydrAMINE Capsule 25 MG CAP PO PRN (06:01)
[2024-03-24] MEDS: IBUPROFEN 600 MG TAB PO PRN (17:25)
[2024-03-24] MEDS: oxyCODONE/ACETAMINOPHEN 5mg/325mg TAB PO PRN (17:25)
[2024-03-24 17:41] LABS: Basophils # (auto) 0.03 K/uL (0.00-0.20); Basophils % (auto) 0.4 %; Eosinophils # (auto) 0.12 K/uL (0.00-0.50); Eosinophils % (auto) 1.5 %; Hematocrit (blood only) 40.1 % (37.0-47.0); Hemoglobin 13.3 g/dl (12.0-16.0); Immature Granulocytes # (auto) 0.12 K/uL (0.01-0.20); Immature Granulocytes % (auto) 1.5 %; Lymphocytes # (auto) 1.03 K/uL (1.20-3.40); Lymphocytes % (auto) 12.7 %; Mean Corpuscular Hemoglobin 30.4 pg (25.0-34.0); Mean Corpuscular Hgb Conc 33.2 g/dL (32.0-36.0); Mean Corpuscular Volume 91.8 fL (80.0-100.0); Mean Platelet Volume 10.3 fL (9.4-12.4); Monocytes # (auto) 0.64 K/uL (0.11-0.59); Monocytes % (auto) 7.9 %; Neutrophils # (auto) 6.18 K/uL (1.40-6.50); Platelet Count 127 K/uL (130-400); RDW Coefficient of Variation 14.1 % (11.5-14.5); RDW Standard Deviation 47.2 fL (36.4-46.3); Red Blood Count 4.37 M/uL (4.20-5.40); White Blood Count 8.12 K/ul (4.8-10.8)
[2024-03-24] MEDS: bisacodyL 5 MG TABEC PO SCH (21:47)
--- NOTE | 2024-03-25 07:23 | Obstetrical Progress Note ---
Date of Service <Maury Mckeon DO - Last Filed: 03/25/24 07:23> March 25, 2024 Assessment & Plan <Maury Mckeon DO - Last Filed: 03/25/24 07:23> (1) Encounter for assessment: Patient is POD 2 s/p repeat and doing well - Eating well, voiding well, ambulating well - vitals reviewed and within normal limits - pain well controlled with analgesics - OOB, ambulation, diet progression as tolerated - Blood type: O+, GBS neg, rubella immune - Plan to discharge tomorrow - After discharge, 6 week follow up with OB visit type: exam and care immediately after delivery Qualified Code(s): Z39.0 - Encounter for care and examination of mother immediately after delivery <Cat Rehman MD - Last Filed: 03/25/24 07:36> (1) Encounter for assessment: Subjective <Maury Mckeon - Last Filed: 03/25/24 07:23> 29 yo post-operative day 2 s/p Ambulation: ambulating normally Voiding: no voiding problems Passing Gas:: Yes Diet Tolerance:: regular diet Lochia:: Small Feeding Type:: bottle feeding and breast feeding appropriately Current Pain Level: 2/10 Resting comfortably this AM in NAD. Denies FONTENOT, CP, SOB, N/V/D, LE pain/swelling. <Cat Rehman MD - Last Filed: 03/25/24 07:36> 29 yo post-operative day 2 s/p Ambulation: ambulating normally Voiding: no voiding problems Passing Gas:: Yes Diet Tolerance:: regular diet Lochia:: Small Feeding Type:: bottle feeding and breast feeding appropriately Current Pain Level: 2/10 Resting comfortably this AM in NAD. Denies FONTENOT, CP, SOB, N/V/D, LE pain/swelling. Physical Exam <Maury Mckeon - Last Filed: 03/25/24 07:23> General: patient resting comfortably, NAD, non-toxic in appearance, answers questions appropriately. Skin: warm, dry, intact HEENT: NC/AT, anicteric sclera, conjunctiva without injection, moist mucus membranes. Heart: +S1/S2, regular, no m/r/g Lungs: equal air entry bilaterally, no rales/rhonchi/wheezes Abd: +BS, soft, NT/ND, uterine fundus firm at umbilicus, caesarean incision clean and without erythema Ext: warm, no clubbing/cyanosis or edema, Alex's neg. Neuro: nonfocal, speech intact, no facial droop, moving all extremities. Results & Data <Maury Mckeon DO - Last Filed: 03/25/24 07:23> Vital Signs (Past 12 Hours) Vital Signs Temp Pulse Resp BP 03/24/24 21:10 36.6 C 72 18 101/67 Supervising Physician <Cat Rehman MD - Last Filed: 03/25/24 07:36> Co-Signing Physician Notes Resident Physician Supervision Note: I interviewed and examined the patient. Discussed with Dr. Mckeon and agree with findings and plan as documented in the note. Any exceptions or clarifications are listed here: [ ] Documented By: Cat Rehman MD, FACOG Resident Activity Tracking <Maury Mckeon DO - Last Filed: 03/25/24 07:23> Resident Involvement: Resident Care Provided Care Provided: OB Delivery
[2024-03-25 07:59] LABS: Hematocrit (blood only) 38.7 % (37.0-47.0); Hemoglobin 12.6 g/dl (12.0-16.0)
[2024-03-25] MEDS: FERROUS SULFATE 325 MG TAB PO SCH (08:57)
[2024-03-25] MEDS: PRENATAL VITAMIN 1 TAB PO SCH (08:57)
[2024-03-25] MEDS ORDERED: bisacodyL 10 MG SUPP PR PRN (15:11)
[2024-03-25] MEDS: SENNA 8.6 MG TAB PO PRN (20:59)
--- NOTE | 2024-03-26 07:47 | Obstetrical Progress Note ---
Date of Service March 26, 2024 Assessment & Plan (1) Encounter for assessment: visit type: exam and care immediately after delivery Qualified Code(s): Z39.0 - Encounter for care and examination of mother immediately after delivery Plan Patient pod 3 s/p repeat c/s. Doing well. Plan d/c today . Instructions given. Day #:: 3 Subjective Ambulation: ambulating normally Voiding: no voiding problems Passing Gas:: Yes Diet Tolerance:: regular diet (no n/v) Lochia:: Small Feeding Type:: breast feeding Pain controlled. Physical Exam Constitutional WD/WN, vitals as above Respiratory normal respiratory effort, lungs clear to auscultation Cardiovascular RRR, no murmur, no edema Extremities: no calf tenderness and no edema Gastrointestinal (Abdomen) soft, nt, nd incision c/d/i ff/nt 1 below u Psychiatric A+Ox3, euthymic affect Results & Data Vital Signs (Past 12 Hours) Vital Signs Temp Pulse Resp BP Pulse Ox O2 Del Method 03/26/24 00:40 36.6 C 84 16 108/70 97 Room Air 03/25/24 20:00 36.9 C 81 16 118/73 97 Room Air
== END 2024-03-26 11:45 | disposition home or self-care (01) | DRG 788 ==
LOC: 4S1 10:51 → 4E2 17:15 → EDSTATUS 03-27 09:10